=== PATIENT | female | born 1935 | race Caucasian/White ===

== ENCOUNTER → 2017-08-10 | Outpatient (CLI) | payer MEDICARE ==
[~2017-08-10] MED LIST: ACET-2303 PO; ALB0.5V; ALBU8.5H2 IH; ALPR0.25 PO; ASP325TEC PO; ASP81CT; ASP81TEC PO; BUDE6HFA IH; BUDE6HFA INH; CETI10TA76 PO; CLC500CT PO; CLPD75T PO; HYDR-700 PO; ISM30TCR PO; METO-272 PO; METO50TA7 PO; MONT10TA21 PO; MTP25TSR; NF-CRES10T PO; NTR.4SL SL; OMG1KC PO; PNT40TEC PO; PRAV40TA PO; RANI150T66 PO; RANO500T2 PO; RANO500T3 PO; ROSU10TA12 PO; RT-ALBUINH IH; TIOT18CA IH; TIOT4MIS2 INH
--- NOTE | 2017-08-11 18:32 | Diagnostic Imaging Report ---
Bilateral screening mammogram 2D views with tomosynthesis. The current study was also evaluated with a Computer Aided Detection (CAD) system. INDICATION: Screening. No current complaints stated on the questionnaire. COMPARISON: 08/04/16. FINDINGS: The breasts are composed of scattered fibroglandular densities. There is an intramammary lymph node in the outer aspect of the right breast. Scattered benign-appearing calcification seen. Allowing for technique and positional differences, no suspicious change is seen. IMPRESSION: No significant change. ACR BI-RADS Category 2: Benign findings. Result letter will be mailed to the patient. Note: At least 10% of breast cancer is not imaged by mammography. Dictated by: Dictated on workstation # [id number]
== END ==
LOC: RAD 08:39
PROVIDERS: ATTEND Internal Medicine
DX: Z12.31 Encounter for screening mammogram for malignant neoplasm of breast (principal)
CPT/HCPCS: 77067

== ENCOUNTER → 2019-01-12 | Outpatient (CLI) | payer MEDICARE ==
--- NOTE | 2019-01-12 18:17 | Diagnostic Imaging Report ---
PROCEDURE: CT head with and without contrast. TECHNIQUE: Multiple contiguous axial images were obtained through the brain before and after the administration of intravenous contrast. Auto Exposure Controls were utilized during the CT exam to meet ALARA standards for radiation dose reduction. INDICATION: Fell in November. Dizziness and loss of balance. FINDINGS: There is diffuse cortical atrophy with considerable periventricular white matter change. The lateral ventricles and third ventricle are slightly prominent. The basal cisterns are clear. There is no evidence of intracranial hemorrhage or mass effect. Following IV contrast injection there is normal enhancement of the intracranial vessels without evidence of enhancing masses. No evidence of aneurysm. Pituitary is not enlarged. Mastoid air cells are clear. Paranasal sinuses are clear, where visualized. No evidence of calvarial lesion. IMPRESSION: 1. Marked cortical atrophy and white matter changes consistent with chronic small vessel disease. 2. Could not exclude mild normal pressure hydrocephalus with patient's symptoms. Dictated by: Dictated on workstation # [id number]
== END ==
LOC: RAD 15:51
PROVIDERS: ATTEND Nurse Practitioner
DX: G31.9 Degenerative disease of nervous system, unspecified (principal); R90.82 White matter disease, unspecified; I67.89 Other cerebrovascular disease; W19.XXXA Unspecified fall, initial encounter; W22.09XA Striking against other stationary object, initial encounter; Y92.009 Unspecified place in unspecified non-institutional (private) residence as the place of occurrence of the external cause
CPT/HCPCS: 70470

== ENCOUNTER → 2019-02-22 | Outpatient (CLI) | payer MEDICARE ==
[~2019-02-22] VITALS: Ht 162.6 cm; Wt 59.0 kg
[~2019-02-22] MED LIST changes: +CATHETER FLUSH 10 ML SYR IV PRN; +REGADENOSON 0.4 MG/5 ML SYR (LEXISCAN) IV ONE
[2019-02-22 09:23] VITALS: BP 151/77
--- NOTE | 2019-02-22 18:20 | STRESS TEST ---
DATE OF SERVICE: 02/22/2019 LEXISCAN MYOVIEW STRESS TEST REPORT REFERRING PHYSICIAN: Dr. Álvarez. Baseline heart rate is 77. Baseline blood pressure is 159/79. Baseline EKG is sinus rhythm with left bundle branch block. In summary, the patient was injected with 10.24 mCi of technetium-99 Myoview and the resting images were obtained. Then, the patient received 0.4 mg of Lexiscan followed by 28.9 mCi of technetium-99 Myoview. Throughout the test, there were no EKG changes. The resting and stress images were reviewed and compared in the short axis, horizontal long axis, and vertical long axis views. Review of the images showed extracardiac attenuation affecting the quality of the images. There is no significant ischemia or infarction was noted. On the gated images, the left ventricle is small in size with hypercontractility. Calculated ejection fraction is 86%. Stress score is not accurate on the study. CONCLUSION: 1. The patient tolerated Lexiscan well. 2. Extracardiac attenuation with no significant ischemia or infarction on SPECT images. 3. Small left ventricular size with hypercontractility. Calculated ejection fraction is 86%. Job ID: [id number] DocumentID: [id number] Dictated Date: 02/22/2019 15:47:14 Prep Manager Date: 02/22/2019 18:19:36 Dictated By: HECTOR WALKER MD
== END ==
LOC: CARD 07:18
PROVIDERS: ATTEND Physician Assistant
DX: I25.10 Atherosclerotic heart disease of native coronary artery without angina pectoris (principal); R07.9 Chest pain, unspecified; J44.9 Chronic obstructive pulmonary disease, unspecified; E78.5 Hyperlipidemia, unspecified; I10 Essential (primary) hypertension; I44.7 Left bundle-branch block, unspecified
CPT/HCPCS: 78452; 93017

== ENCOUNTER 2019-03-13 09:27 | Emergency (ER) | payer MEDICARE ==
[~2019-03-13] VITALS: Ht 162.6 cm; Wt 56.7 kg
[~2019-03-13 09:27] MED LIST changes: -CATHETER FLUSH 10 ML SYR IV PRN; -REGADENOSON 0.4 MG/5 ML SYR (LEXISCAN) IV ONE
[2019-03-13] MEDS ORDERED: NS IV 1000 ML 1,000 ML IV ONE (10:02)
[2019-03-13 10:22] LABS: BASOPHILS % (AUTO) 0 % (0-10); EOSINOPHILS % (AUTO) 0 % (0-10); HEMATOCRIT 33 % (35-52); HEMOGLOBIN 11.4 G/DL (11.5-16.0); LYMPHOCYTES # (AUTO) 1.2 X 10^3 (1.0-4.0); LYMPHOCYTES % (AUTO) 17 % (12-44); MEAN CORPUSCULAR HEMOGLOBIN 30 PG (25-34); MEAN CORPUSCULAR HGB CONC 34 G/DL (32-36); MEAN CORPUSCULAR VOLUME 87 FL (80-99); MEAN PLATELET VOLUME 8.7 FL (7.4-10.4); MONOCYTES # (AUTO) 0.9 X 10^3 (0.0-1.0); MONOCYTES % (AUTO) 14 % (0-12); NEUTROPHILS # (AUTO) 4.8 X 10^3 (1.8-7.8); NEUTROPHILS % (AUTO) 69 % (42-75); PLATELET COUNT 337 10^3/uL (130-400); RED CELL DISTRIBUTION WIDTH 13.8 % (10.0-14.5); WHITE BLOOD COUNT 6.9 10^3/uL (4.3-11.0)
[2019-03-13] MEDS ORDERED: LOSA50TA63 PO (10:23)
[2019-03-13] MEDS ORDERED: LEVO750T9 PO (10:23)
[2019-03-13] MEDS ORDERED: SERT100T8 PO (10:23)
[2019-03-13 10:47] LABS: ALBUMIN 3.7 GM/DL (3.2-4.5); BILIRUBIN,TOTAL 0.6 MG/DL (0.1-1.0); CALCIUM 9.1 MG/DL (8.5-10.1); CREATININE SERUM 1.05 MG/DL (0.60-1.30); MAGNESIUM 1.8 MG/DL (1.8-2.4); POTASSIUM 4.1 MMOL/L (3.6-5.0)
[2019-03-13 11:06] LABS: TSH (THYROID ANALYZER) 0.24 UIU/ML (0.35-4.94)
[2019-03-13 11:25] LABS: BILIRUBIN,URINE NEGATIVE (NEGATIVE); CLARITY,URINE CLEAR; COLOR,URINE YELLOW; GLUCOSE, URINE (UA) NEGATIVE (NEGATIVE); KETONES,URINE NEGATIVE (NEGATIVE); LEUKOCYTE ESTERASE ,URINE 1+ (NEGATIVE); NITRITE,URINE NEGATIVE (NEGATIVE); PH,URINE 7 (5-9); PROTEIN,URINE NEGATIVE (NEGATIVE); UROBILINOGEN,URINE NORMAL (NORMAL)
[2019-03-13 11:35] LABS: BACTERIA,URINE FEW /HPF; RBC,URINE RARE /HPF
[2019-03-13 11:45] LABS: FREE T4 (FREE THYROXINE) 1.33 NG/DL (0.70-1.48)
--- NOTE | 2019-03-13 12:45 | ED General ---
General Chief Complaint: Nasal Problems Stated Complaint: SINUS INFECTION Nursing Triage Note: pt complaint of sinus infection for the last month with worsening in the last 3 days. co dull headache Nursing Sepsis Screen: No Definite Risk Allergies and Home Medications Allergies Coded Allergies: Penicillins (Unverified Allergy, Intermediate, RASH, 07/29/06) clopidogrel (Verified Allergy, Mild, ITCHING, 04/03/15) Home Medications Acetaminophen 500 Mg Tab, 1,000 MG PO Q6H PRN for PAIN, (Reported) Albuterol Sulfate 8.5 Gm Aer.w.adap, 2 PUFF IH Q4H PRN for SHORTNESS OF BREATH, (Reported) Alprazolam 0.25 Mg Tablet, 0.25 MG PO Q8H PRN for ANXIETY, (Reported) Aspirin 325 Mg Tabec, 325 MG PO DAILY, (Reported) Budesonide/Formoterol Fumarate 1 Inhaler Aero, 2 PUFF INH BID PRN for SHORTNESS OF BREATH, (Reported) Cetirizine HCl 10 Mg Tab.chew, 10 MG PO DAILY, (Reported) Levofloxacin 750 Mg Tablet, 750 MG PO DAILY, (Reported) Losartan Potassium 50 Mg Tablet, 50 MG PO DAILY, (Reported) Metoprolol Succinate 50 Mg Tab.sr.24h, 50 MG PO DAILY, (Reported) Montelukast Sodium 10 Mg Tablet, 10 MG PO HS, (Reported) Nitroglycerin 0.4 Mg Subl, 0.4 MG SL UD PRN for CHEST PAIN, (Reported) [place] 3 Polyunsat Fatty Acids 1,000 Mg Cap, 3,000 MG PO DAILY, (Reported) Pantoprazole Sod 40 Mg Tab, 40 MG PO DAILY, (Reported) Ranolazine 500 Mg Tab.sr.12h, 500 MG PO BID, (Reported) Rosuvastatin Calcium 10 Mg Tab, 10 MG PO HS, (Reported) Sertraline HCl 100 Mg Tablet, 100 MG PO DAILY, (Reported) Tiotropium [place] 4 Gm Mist.inhal, 1 CAP INH DAILY PRN for SHORTNESS OF BREATH, (Reported) Past Ulsokal-Ojhogz-Galjrv Hx Patient Social History Alcohol Use: Occasionally Uses Recreational Drug Use: No Smoking Status: Never a Smoker Recent Foreign Travel: No Contact w/Someone Who Travel: No Recent Infectious Disease Expo: No Recent Hopitalizations: Yes Immunizations Up To Date Tetanus Booster (TDap): More than 5yrs PED Vaccines UTD: Yes Date of Pneumonia Vaccine: Jun 07, 2013 Date of Influenza Vaccine: May 20, 2015 Past Medical History Surgeries: Yes (STENT X1, HEMMROIDECTOMY, PARATHYROID, carpal tunnel ) Respiratory: Yes (COPD) Asthma, COPD Currently Using CPAP: No Currently Using BIPAP: No Cardiac: Yes (STENT - 2009) Coronary Artery Disease, High Cholesterol, Hypertension Neurological: No : No Reproductive Disorders: No Sexually Transmitted Disease: No HIV/AIDS: No Genitourinary: No Gastrointestinal: Yes Gastroesophageal Reflux, Hemorrhoids, Polyps, Gall Bladder Disease, Irritable Bowel Musculoskeletal: Yes Arthritis Endocrine: No Cataract Loss of Vision: Denies Hearing Impairment: Denies Cancer: No Psychosocial: Yes Anxiety Integumentary: Yes (EXTREMELY DRY SKIN ) Blood Disorders: No Adverse Reaction/Blood Tranf: No (NEVER HAD BLOOD TRANSFUSION ) Family Medical History Colon cancer 19 MOTHER FH: emphysema 19 FATHER FH: lung cancer G8 BROTHER Prostate cancer G8 BROTHER Physical Exam Vital Signs Vital Signs - First Documented 03/13/19 09:44 Temp 97.4 Pulse 77 Resp 14 B/P (MAP) 130/76 (94) Pulse Ox 100 O2 Delivery Room Air Capillary Refill : Less Than 3 Seconds Height, Weight, BMI Height: 5'4.00" Weight: 125lbs. 0.0oz. 56.394175op; 22.3 BMI Method:Stated Progress/Results/Core Measures Suspected Sepsis Recent Fever Within 48 Hours: No Infection Criteria Present: Suspected New Infection New/Unexplained Altered Menta: No Sepsis Screen: No Definite Risk SIRS Temperature:97.4 Pulse: 77 Respiratory Rate: 14 Laboratory Tests 03/13/19 10:15: White Blood Count 6.9 Blood Pressure 130 /76 Mean: 94 Laboratory Tests 03/13/19 10:15: Creatinine 1.05, Platelet Count 337, Total Bilirubin 0.6 Results/Orders Lab Results Laboratory Tests Test 03/13/19 10:15 03/13/19 11:09 Range/Units White Blood Count 6.9 4.3-11.0 10^3/uL Red Blood Count 3.82 L 4.35-5.85 10^6/uL Hemoglobin 11.4 L 11.5-16.0 G/DL Hematocrit 33 L 35-52 % Mean Corpuscular Volume 87 80-99 FL Mean Corpuscular Hemoglobin 30 25-34 PG Mean Corpuscular Hemoglobin Concent 34 32-36 G/DL Red Cell Distribution Width 13.8 10.0-14.5 % Platelet Count 337 130-400 10^3/uL Mean Platelet Volume 8.7 7.4-10.4 FL Neutrophils (%) (Auto) 69 42-75 % Lymphocytes (%) (Auto) 17 12-44 % Monocytes (%) (Auto) 14 H 0-12 % Eosinophils (%) (Auto) 0 0-10 % Basophils (%) (Auto) 0 0-10 % Neutrophils # (Auto) 4.8 1.8-7.8 X 10^3 Lymphocytes # (Auto) 1.2 1.0-4.0 X 10^3 Monocytes # (Auto) 0.9 0.0-1.0 X 10^3 Eosinophils # (Auto) 0.0 0.0-0.3 10^3/uL Basophils # (Auto) 0.0 0.0-0.1 10^3/uL Sodium Level 133 L 135-145 MMOL/L Potassium Level 4.1 3.6-5.0 MMOL/L Chloride Level 103 98-107 MMOL/L Carbon Dioxide Level 23 21-32 MMOL/L Anion Gap 7 5-14 MMOL/L Blood Urea Nitrogen 18 7-18 MG/DL Creatinine 1.05 0.60-1.30 MG/DL Estimat Glomerular Filtration Rate 50 BUN/Creatinine Ratio 17 Glucose Level 110 H 70-105 MG/DL Calcium Level 9.1 8.5-10.1 MG/DL Corrected Calcium 9.3 8.5-10.1 MG/DL Magnesium Level 1.8 1.8-2.4 MG/DL Total Bilirubin 0.6 0.1-1.0 MG/DL Aspartate Amino Transf (AST/SGOT) 13 5-34 U/L Alanine Aminotransferase (ALT/SGPT) 11 0-55 U/L Alkaline Phosphatase 42 40-136 U/L C-Reactive Protein High Sensitivity 0.07 0.00-0.50 MG/DL Total Protein 6.0 L 6.4-8.2 GM/DL Albumin 3.7 3.2-4.5 GM/DL Free Thyroxine 1.33 0.70-1.48 NG/DL TSH Gem Testing 0.24 L 0.35-4.94 UIU/ML Urine Color YELLOW Urine Clarity CLEAR Urine pH 7 5-9 Urine Specific [place] 1.010 L 1.016-1.022 Urine Protein NEGATIVE NEGATIVE Urine Glucose (UA) NEGATIVE NEGATIVE Urine Ketones NEGATIVE NEGATIVE Urine Nitrite NEGATIVE NEGATIVE Urine Bilirubin NEGATIVE NEGATIVE Urine Urobilinogen NORMAL NORMAL MG/DL Urine Leukocyte Esterase 1+ H NEGATIVE Urine RBC (Auto) NEGATIVE NEGATIVE Urine RBC RARE /HPF Urine WBC 2-5 /HPF Urine Squamous Epithelial Cells 2-5 /HPF Urine Crystals NONE /LPF Urine Bacteria FEW H /HPF Urine Casts NONE /LPF Urine Mucus NEGATIVE /LPF Urine Culture Indicated YES My Orders Orders - VINH MULLIGAN MD Cbc With Automated Diff (03/13/19 10:02) Comprehensive Metabolic Panel (03/13/19 10:02) Hs C Reactive Protein (03/13/19 10:02) Magnesium (03/13/19 10:02) Thyroid Analyzer (03/13/19 10:02) Ua Culture If Indicated (03/13/19 10:02) Ed Iv/Invasive Line Start (03/13/19 10:02) Ns Iv 1000 Ml (Sodium Chloride 0.9%) (03/13/19 10:02) Free T4 (Free Thyroxine) (03/13/19 10:15) Urine Culture (03/13/19 11:09) Vital Signs/I&O 03/13/19 09:44 Temp 97.4 Pulse 77 Resp 14 B/P (MAP) 130/76 (94) Pulse Ox 100 O2 Delivery Room Air Capillary Refill : Less Than 3 Seconds Blood Pressure Mean: 94 Departure Impression Primary Impression: Generalized weakness Additional Impressions: Sinus congestion Hypovolemia Disposition: 01 HOME, SELF-CARE Condition: Improved Departure-Patient Inst. Decision time for Depature: 12:40 Referrals: CARISSA ÁLVAREZ MD (PCP/Family) Primary Care Physician Patient Instructions: Sinusitis, Adult (DC) Add. Discharge Instructions: Drink plenty of clear liquids. Keep your follow-up appointment with Dr. Álvarez. Review your labs and urine culture results with Dr. Álvarez at that appointment. Return to the emergency room if you have worsening symptoms in the meantime. Please review your medications with Dr. Álvarez. Your symptoms may be in part due to side effects from some of your medications. In the meantime, continue with your antibiotic as prescribed. All discharge instructions reviewed with patient and/or family. Voiced understanding. VINH MULLIGAN MD Mar 13, 2019 12:45
[2019-03-13 12:50] VITALS: BP 125/63
== END 2019-03-13 12:50 | disposition home or self-care (01) ==
LOC: EDUNIT# 09:27 → ER 09:28
DX: R09.81 Nasal congestion (principal); E86.1 Hypovolemia; R53.1 Weakness; J44.9 Chronic obstructive pulmonary disease, unspecified; I10 Essential (primary) hypertension; E78.00 Pure hypercholesterolemia, unspecified; I25.10 Atherosclerotic heart disease of native coronary artery without angina pectoris; K21.9 Gastro-esophageal reflux disease without esophagitis; K58.9 Irritable bowel syndrome, unspecified; F41.9 Anxiety disorder, unspecified; Z80.0 Family history of malignant neoplasm of digestive organs; Z80.1 Family history of malignant neoplasm of trachea, bronchus and lung; Z80.42 Family history of malignant neoplasm of prostate; Z86.011 Personal history of benign neoplasm of the brain; Z88.0 Allergy status to penicillin; Z88.8 Allergy status to other drugs, medicaments and biological substances; Z79.82 Long term (current) use of aspirin
CPT/HCPCS: 36415; 80053; 81000; 83735; 84439; 84443; 85025; 86141; 87088

== ENCOUNTER → 2019-03-15 | Outpatient (CLI) | payer MEDICARE ==
[~2019-03-15] MED LIST changes: +LEVO750T9 PO; +LOSA50TA63 PO; +SERT100T8 PO
--- NOTE | 2019-03-15 09:51 | Diagnostic Imaging Report ---
INDICATION: Cough and shortness of breath PA and lateral chest Heart size and pulmonary vascularity are normal. Lungs are clear. There are no effusions or pneumothoraces. IMPRESSION: Negative chest. Dictated by: Dictated on workstation # [id number]
== END ==
LOC: RAD 09:18
PROVIDERS: ATTEND Internal Medicine
DX: R06.02 Shortness of breath (principal); R05 Cough
CPT/HCPCS: 71046

== ENCOUNTER 2019-06-09 19:06 | Emergency (ER) | payer MEDICARE ==
[~2019-06-09] VITALS: Ht 162 cm; Wt 55.0 kg
[2019-06-09] MEDS ORDERED: ACETAMINOPHEN 325 MG TABLET PO ONE (20:15)
--- NOTE | 2019-06-09 20:22 | ED Back Pain ---
General Chief Complaint: Back Problems Stated Complaint: FALL,BACK PAIN Nursing Triage Note: PT TO ROOM 08 VIA W/C WITH C/O BACK PAIN AFTER A FALL. PT STATES SHE FELL AND HIT HER HIP ON THE [facility] AND HER HEAD ON THE WALL. PT STATES NO LOSS OF CONSCIOUSNESS. Nursing Sepsis Screen: No Definite Risk Source of Information: Patient Exam Limitations: No Limitations History of Present Illness Date Seen by Provider: Jun 09, 2019 Time Seen by Provider: 20:18 Initial Comments To ER with reports of a fall at home, she got lightheaded and fell, this has happened quite a bit pelvis is, she is not alarmed by the lightheadedness. She feels back to normal now, she does have some complaints of pain to the right side of the lumbar spine she did hit her head. No loss of consciousness no neck pain. Location: C-Spine, Lumbar Spine Timing/Duration: 4-6 Hours Severity: Moderate Pain/Injury Location: None Method of Injury: Unknown Associated Symptoms: lower back pain Allergies and Home Medications Allergies Coded Allergies: Penicillins (Unverified Allergy, Intermediate, RASH, 07/29/06) clopidogrel (Verified Allergy, Mild, ITCHING, 04/03/15) Home Medications Acetaminophen 500 Mg Tab, 1,000 MG PO Q6H PRN for PAIN, (Reported) Albuterol Sulfate 8.5 Gm Aer.w.adap, 2 PUFF IH Q4H PRN for SHORTNESS OF BREATH, (Reported) Alprazolam 0.25 Mg Tablet, 0.25 MG PO Q8H PRN for ANXIETY, (Reported) Aspirin 325 Mg Tabec, 325 MG PO DAILY, (Reported) Budesonide/Formoterol Fumarate 1 Inhaler Aero, 2 PUFF INH BID PRN for SHORTNESS OF BREATH, (Reported) Cetirizine HCl 10 Mg Tab.chew, 10 MG PO DAILY, (Reported) Levofloxacin 750 Mg Tablet, 750 MG PO DAILY, (Reported) Losartan Potassium 50 Mg Tablet, 50 MG PO DAILY, (Reported) Metoprolol Succinate 50 Mg Tab.sr.24h, 50 MG PO DAILY, (Reported) Montelukast Sodium 10 Mg Tablet, 10 MG PO HS, (Reported) Nitroglycerin 0.4 Mg Subl, 0.4 MG SL UD PRN for CHEST PAIN, (Reported) [place] 3 Polyunsat Fatty Acids 1,000 Mg Cap, 3,000 MG PO DAILY, (Reported) Pantoprazole Sod 40 Mg Tab, 40 MG PO DAILY, (Reported) Ranolazine 500 Mg Tab.sr.12h, 500 MG PO BID, (Reported) Rosuvastatin Calcium 10 Mg Tab, 10 MG PO HS, (Reported) Sertraline HCl 100 Mg Tablet, 100 MG PO DAILY, (Reported) Tiotropium [place] 4 Gm Mist.inhal, 1 CAP INH DAILY PRN for SHORTNESS OF BREATH, (Reported) Patient Home Medication List Home Medication List Reviewed: Yes Review of Systems Constitutional: see HPI EENTM: see HPI Respiratory: no symptoms reported Genitourinary: no symptoms reported Musculoskeletal: see HPI, back pain Skin: no symptoms reported Psychiatric/Neurological: No Symptoms Reported Past Dvlcmmr-Miemjv-Zwggjj Hx Patient Social History Alcohol Use: Regular Use Alcohol Beverage of Choice: Wine Recreational Drug Use: No Smoking Status: Never a Smoker 2nd Hand Smoke Exposure: No Recent Foreign Travel: No Contact w/Someone Who Travel: No Recent Infectious Disease Expo: No Recent Hopitalizations: Yes Physical Abuse: No Sexual Abuse: No Mistreated: No Fear: No Immunizations Up To Date Tetanus Booster (TDap): More than 5yrs PED Vaccines UTD: Yes Date of Pneumonia Vaccine: Jun 07, 2013 Date of Influenza Vaccine: May 20, 2015 Past Medical History Surgeries: Yes (STENT X1, HEMMROIDECTOMY, PARATHYROID, carpal tunnel ) Coronary Stent, Orthopedic Respiratory: Yes (COPD) Asthma, COPD Currently Using CPAP: No Currently Using BIPAP: No Cardiac: Yes (STENT - 2009) Coronary Artery Disease, High Cholesterol, Hypertension Neurological: No Reproductive Disorders: No Sexually Transmitted Disease: No HIV/AIDS: No Genitourinary: No Gastrointestinal: Yes Gastroesophageal Reflux, Hemorrhoids, Polyps, Gall Bladder Disease, Irritable Bowel Musculoskeletal: Yes Arthritis Endocrine: No Cataract Loss of Vision: Denies Hearing Impairment: Denies Cancer: No Psychosocial: Yes Anxiety Integumentary: Yes (EXTREMELY DRY SKIN ) Blood Disorders: No Adverse Reaction/Blood Tranf: No (NEVER HAD BLOOD TRANSFUSION ) Family Medical History Colon cancer 19 MOTHER FH: emphysema 19 FATHER FH: lung cancer G8 BROTHER Prostate cancer G8 BROTHER Physical Exam Vital Signs Vital Signs - First Documented 06/09/19 19:18 Temp 37.6 Pulse 99 Resp 17 B/P (MAP) 182/93 (122) Pulse Ox 96 O2 Delivery Room Air Capillary Refill : Less Than 3 Seconds Height, Weight, BMI Height: 5'4.00" Weight: 125lbs. 0.0oz. 56.193381sx; 20.00 BMI Method:Stated General Appearance: No Apparent Distress, WD/WN HEENT: PERRL/EOMI, TMs Normal Neck: Full Range of Motion, Normal Inspection Respiratory: No Accessory Muscle Use, No Respiratory Distress Gastrointestinal: Normal Bowel Sounds, Non Tender, Soft Back: Normal Inspection, Other (tenderness to palpation right side of the lumbar spine) Neurologic/Psychiatric: Alert, Oriented x3 Progress/Results/Core Measures Results/Orders My Orders Orders - CEDRICK BLANC APRN Ct Head/Cervical Spine Wo (06/09/19 20:06) Ct Lumbar Spine Wo (06/09/19 20:06) Acetaminophen Tablet/Caplet (Tylenol T (06/09/19 20:15) Rx-Hydrocodone/Apap 5-325 Mg (Rx-Vicodin (06/09/19 21:00) Medications Given in ED Current Medications Medications Dose Ordered Sig/Kendra Route Start Time Stop Time Status Last Admin Dose Admin Acetaminophen 650 mg ONCE ONCE PO 06/09/19 20:15 06/09/19 20:16 DC 06/09/19 20:11 650 MG Vital Signs/I&O 06/09/19 19:18 Temp 37.6 Pulse 99 Resp 17 B/P (MAP) 182/93 (122) Pulse Ox 96 O2 Delivery Room Air Blood Pressure Mean: 122 Departure Impression Primary Impression: Lumbar transverse process fracture Qualified Codes: S32.009A - Unspecified fracture of unspecified lumbar vertebra, initial encounter for closed fracture Disposition: 01 HOME, SELF-CARE Condition: Stable Departure-Patient Inst. Decision time for Depature: 20:59 Referrals: CARISSA BROWNE MD (PCP/Family) Primary Care Physician Patient Instructions: Low Back Pain (DC) Add. Discharge Instructions: 1. Return to ER for any concerns 2. Pain medication as directed 3. Follow-up with your doctor next week 4. The pain medication can be constipating septic a stool softener such as Colace daily if you do not do so already. All discharge instructions reviewed with patient and/or family. Voiced understanding. Scripts Hydrocodone/Acetaminophen ([place] 5-325 Tablet) 1 Each Tablet 1 TAB PO Q6H for Pain MDD 10 TABS for 7 Days, #14 TAB Prov: CEDRICK BLANC APRN 06/09/19 CEDRICK BLANC APRN Jun 09, 2019 20:22
--- NOTE | 2019-06-09 20:45 | Diagnostic Imaging Report ---
PROCEDURE: CT head and CT cervical spine without contrast. TECHNIQUE: Multiple contiguous axial images were obtained through the brain and cervical spine without the use of intravenous contrast. Sagittal and coronal reformations through the cervical spine were then performed. Auto Exposure Controls were utilized during the CT exam to meet ALARA standards for radiation dose reduction. INDICATION: Fall with trauma to head. COMPARISON: CT head from 01/12/2019. FINDINGS: CT head: No hyperdense hemorrhage or space-occupying mass. No hydrocephalus or midline shift. Head-white matter differentiation is well preserved. Global atrophy with periventricular white-matter hypoattenuation is unchanged and due to chronic microvascular ischemic disease. 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 No skull fracture. Paranasal sinuses and mastoid air cells are clear. CT cervical spine: No acute fracture or traumatic malalignment in the cervical spine. No acute fracture in the temporal bones. No high-grade spinal stenosis. Multilevel degenerative disc disease and facet osteoarthritis. Lung apices are clear. No cervical lymphadenopathy. IMPRESSION: 1. No acute intracranial hemorrhage or skull fracture. 2. No acute fracture or traumatic malalignment in the cervical spine. Dictated by: Dictated on workstation # [id number]
--- NOTE | 2019-06-09 20:51 | Diagnostic Imaging Report ---
PROCEDURE: CT lumbar spine without contrast. TECHNIQUE: Multiple contiguous axial images were obtained through the lumbar spine without the use of intravenous contrast. Sagittal and coronal reformations were then performed. Auto Exposure Controls were utilized during the CT exam to meet ALARA standards for radiation dose reduction. INDICATION: Back pain after fall. COMPARISON: CT abdomen and pelvis from 12/13/2007. FINDINGS: Compression in the inferior endplate of L1 has appearance of a chronic Schmorl's node. No definitive acute compression or burst fracture within the lumbar spine. There are acute fractures involving the right L2 and L3 transverse processes. Multilevel degenerative changes include degenerative retrolisthesis at L3 on L4. There is approximately 3 mm of anterolisthesis of L5 on S1 due to chronic bilateral pars defects. No fracture within the visualized portions of the sacrum. IMPRESSION: 1. Acute minimally displaced fractures of the right L2 and L3 transverse processes. 2. Chronic-appearing Schmorl's node involving the inferior endplate of L1. No definitive compression or burst fracture in the lumbar spine. If it will alter the patient's management, consider nonemergent lumbar spine MRI to assess for bone marrow edema. Dictated by: Dictated on workstation # [id number]
[2019-06-09] MEDS ORDERED: RX-HYDROCODONE/APAP 5/325 MG #4 TAB PK PO PRN (21:00)
[2019-06-09] MEDS ORDERED: HYDR-4226 PO (21:05)
[2019-06-09 21:29] VITALS: BP 119/72
== END 2019-06-09 21:28 | disposition home or self-care (01) ==
LOC: EDUNIT# 19:06 → ER 19:07
DX: S32.029A Unspecified fracture of second lumbar vertebra, initial encounter for closed fracture (principal); S32.039A Unspecified fracture of third lumbar vertebra, initial encounter for closed fracture; J44.9 Chronic obstructive pulmonary disease, unspecified; I10 Essential (primary) hypertension; E78.00 Pure hypercholesterolemia, unspecified; I25.10 Atherosclerotic heart disease of native coronary artery without angina pectoris; F41.9 Anxiety disorder, unspecified; K21.9 Gastro-esophageal reflux disease without esophagitis; K58.9 Irritable bowel syndrome, unspecified; Z95.5 Presence of coronary angioplasty implant and graft; Z88.0 Allergy status to penicillin; Z79.82 Long term (current) use of aspirin; Z80.0 Family history of malignant neoplasm of digestive organs; Z80.1 Family history of malignant neoplasm of trachea, bronchus and lung; Z80.42 Family history of malignant neoplasm of prostate; W19.XXXA Unspecified fall, initial encounter; Y92.009 Unspecified place in unspecified non-institutional (private) residence as the place of occurrence of the external cause
CPT/HCPCS: 70450; 72125; 72131

== ENCOUNTER 2019-07-11 13:36 | Emergency (ER) | payer MEDICARE ==
[~2019-07-11] VITALS: Ht 162.5 cm; Wt 56.3 kg
[~2019-07-11 13:36] MED LIST changes: +HYDR-4226 PO
[2019-07-11] MEDS ORDERED: NS IV 500 ML 500 ML IV ONE (14:21)
--- NOTE | 2019-07-11 14:34 | ED General ---
General Chief Complaint: General Problems/Pain Stated Complaint: BILAT LEG WEAKNESS Nursing Triage Note: over the past week has had increasing difficulty walking, getting up and down, hx of fall 1 month ago with tail bone fracture Nursing Sepsis Screen: No Definite Risk Source of Information: Patient Exam Limitations: No Limitations History of Present Illness Date Seen by Provider: Jul 11, 2019 Time Seen by Provider: 14:15 Initial Comments Here with reported generalized weakness and increasing difficulty with getting up and down and walking. She did have a fall one month ago and fractured her coccyx. She takes the hydrocodone daily on most days but not more than one typically. She does supplement with ibuprofen a few times a day as well. She's had episodes of generalized weakness in the past but this one appears to be worse. She is suffering from some sciatica associated with the injury and that has caused her to be more sedentary. Denies dysuria or diarrhea. Denies nausea, vomiting or diarrhea. No recent fever or chills or illness. Timing/Duration: 1 Week, Getting Worse Severity: Moderate Modifying Factors: improves with Rest Associated Systoms: No Fever/Chills; Weakness Allergies and Home Medications Allergies Coded Allergies: Penicillins (Unverified Allergy, Intermediate, RASH, 07/29/06) clopidogrel (Verified Allergy, Mild, ITCHING, 04/03/15) Home Medications Acetaminophen 500 Mg Tab, 1,000 MG PO Q6H PRN for PAIN, (Reported) Albuterol Sulfate 8.5 Gm Aer.w.adap, 2 PUFF IH Q4H PRN for SHORTNESS OF BREATH, (Reported) Alprazolam 0.25 Mg Tablet, 0.25 MG PO Q8H PRN for ANXIETY, (Reported) Aspirin 325 Mg Tabec, 325 MG PO DAILY, (Reported) Budesonide/Formoterol Fumarate 1 Inhaler Aero, 2 PUFF INH BID PRN for SHORTNESS OF BREATH, (Reported) Cetirizine HCl 10 Mg Tab.chew, 10 MG PO DAILY, (Reported) Hydrocodone/Acetaminophen 1 Each Tablet, 1 TAB PO Q6H Prescribed by: CEDRICK BLANC on 06/09/192104 Levofloxacin 750 Mg Tablet, 750 MG PO DAILY, (Reported) Losartan Potassium 50 Mg Tablet, 50 MG PO DAILY, (Reported) Metoprolol Succinate 50 Mg Tab.sr.24h, 50 MG PO DAILY, (Reported) Montelukast Sodium 10 Mg Tablet, 10 MG PO HS, (Reported) Nitroglycerin 0.4 Mg Subl, 0.4 MG SL UD PRN for CHEST PAIN, (Reported) Guffey 3 Polyunsat Fatty Acids 1,000 Mg Cap, 3,000 MG PO DAILY, (Reported) Pantoprazole Sod 40 Mg Tab, 40 MG PO DAILY, (Reported) Ranolazine 500 Mg Tab.sr.12h, 500 MG PO BID, (Reported) Rosuvastatin Calcium 10 Mg Tab, 10 MG PO HS, (Reported) Sertraline HCl 100 Mg Tablet, 100 MG PO DAILY, (Reported) Tiotropium [place] 4 Gm Mist.inhal, 1 CAP INH DAILY PRN for SHORTNESS OF BREATH, (Reported) Patient Home Medication List Home Medication List Reviewed: Yes Review of Systems Review of Systems Constitutional: see HPI; No fever; malaise, weakness EENTM: no symptoms reported Respiratory: no symptoms reported Cardiovascular: no symptoms reported Gastrointestinal: No nausea, No vomiting Genitourinary: No dysuria, No frequency Musculoskeletal: see HPI, joint pain, muscle weakness; No neck pain Skin: no symptoms reported All Other Systems Reviewed Negative Unless Noted: Yes Past Xjfuipx-Guczqy-Clrpwm Hx Past Med/Social Hx: Reviewed Nursing Past Med/Soc Hx Patient Social History Alcohol Use: Regular Use Number of Drinks Today: HH Alcohol Beverage of Choice: Wine Recreational Drug Use: No 2nd Hand Smoke Exposure: No Recent Foreign Travel: No Contact w/Someone Who Travel: No Recent Infectious Disease Expo: No Recent Hopitalizations: Yes Immunizations Up To Date Tetanus Booster (TDap): More than 5yrs PED Vaccines UTD: Yes Date of Pneumonia Vaccine: Jun 07, 2013 Date of Influenza Vaccine: May 20, 2015 Past Medical History Surgeries: Yes (STENT X1, HEMMROIDECTOMY, PARATHYROID, carpal tunnel ) Coronary Stent, Orthopedic Respiratory: Yes (COPD) Asthma, COPD Currently Using CPAP: No Currently Using BIPAP: No Cardiac: Yes (STENT - 2010) Coronary Artery Disease, High Cholesterol, Hypertension Neurological: No Reproductive Disorders: No Sexually Transmitted Disease: No HIV/AIDS: No Genitourinary: No Gastrointestinal: Yes Gastroesophageal Reflux, Hemorrhoids, Polyps, Gall Bladder Disease, Irritable Bowel Musculoskeletal: Yes Arthritis Endocrine: No Cataract Loss of Vision: Denies Hearing Impairment: Denies Cancer: No Psychosocial: Yes Anxiety Integumentary: Yes (EXTREMELY DRY SKIN ) Blood Disorders: No Adverse Reaction/Blood Tranf: No (NEVER HAD BLOOD TRANSFUSION ) Family Medical History Reviewed Nursing Family Hx Colon cancer 19 MOTHER FH: emphysema 19 FATHER FH: lung cancer G8 BROTHER Prostate cancer G8 BROTHER Physical Exam Vital Signs Vital Signs - First Documented 07/11/19 13:48 Temp 36.5 Pulse 80 Resp 22 B/P (MAP) 173/95 (121) Capillary Refill : Less Than 3 Seconds Height, Weight, BMI Height: 5'4.00" Weight: 125lbs. 0.0oz. [id number]; 21.00 BMI Method:Stated General Appearance: No Apparent Distress, Thin HEENT: PERRL/EOMI, Pharynx Normal Neck: Non Tender, Supple Respiratory: Lungs Clear, Normal Breath Sounds Cardiovascular: Regular Rate, Rhythm, No Murmur Gastrointestinal: Non Tender, Soft Extremity: Normal Range of Motion, Non Tender Neurologic/Psychiatric: Alert, Oriented x3, No Motor/Sensory Deficits, Normal Mood/Affect, ethnographic materials conservator II-XII Norm as Tested Skin: Normal Color, Warm/Dry Progress/Results/Core Measures Suspected Sepsis Recent Fever Within 48 Hours: No Infection Criteria Present: None New/Unexplained Altered Menta: No Sepsis Screen: No Definite Risk SIRS Temperature: Pulse: 80 Respiratory Rate: 22 Laboratory Tests 07/11/19 14:28: White Blood Count 5.1 Blood Pressure 173 /95 Mean: 121 Laboratory Tests 07/11/19 14:28: Creatinine 0.95, Platelet Count 268, Total Bilirubin 0.3 Results/Orders Lab Results Laboratory Tests Test 07/11/19 14:28 07/11/19 14:35 Range/Units White Blood Count 5.1 4.3-11.0 10^3/uL Red Blood Count 3.65 L 4.35-5.85 10^6/uL Hemoglobin 11.0 L 11.5-16.0 G/DL Hematocrit 32 L 35-52 % Mean Corpuscular Volume 88 80-99 FL Mean Corpuscular Hemoglobin 30 25-34 PG Mean Corpuscular Hemoglobin Concent 34 32-36 G/DL Red Cell Distribution Width 12.6 10.0-14.5 % Platelet Count 268 130-400 10^3/uL Mean Platelet Volume 8.1 7.4-10.4 FL Neutrophils (%) (Auto) 61 42-75 % Lymphocytes (%) (Auto) 19 12-44 % Monocytes (%) (Auto) 14 H 0-12 % Eosinophils (%) (Auto) 5 0-10 % Basophils (%) (Auto) 1 0-10 % Neutrophils # (Auto) 3.1 1.8-7.8 X 10^3 Lymphocytes # (Auto) 1.0 1.0-4.0 X 10^3 Monocytes # (Auto) 0.7 0.0-1.0 X 10^3 Eosinophils # (Auto) 0.2 0.0-0.3 10^3/uL Basophils # (Auto) 0.1 0.0-0.1 10^3/uL Sodium Level 129 L 135-145 MMOL/L Potassium Level 4.0 3.6-5.0 MMOL/L Chloride Level 98 98-107 MMOL/L Carbon Dioxide Level 22 21-32 MMOL/L Anion Gap 9 5-14 MMOL/L Blood Urea Nitrogen 13 7-18 MG/DL Creatinine 0.95 0.60-1.30 MG/DL Estimat Glomerular Filtration Rate 56 BUN/Creatinine Ratio 14 Glucose Level 96 70-105 MG/DL Calcium Level 8.4 L 8.5-10.1 MG/DL Corrected Calcium 8.6 8.5-10.1 MG/DL Magnesium Level 1.7 1.6-2.4 MG/DL Total Bilirubin 0.3 0.1-1.0 MG/DL Aspartate Amino Transf (AST/SGOT) 16 5-34 U/L Alanine Aminotransferase (ALT/SGPT) 12 0-55 U/L Alkaline Phosphatase 38 L 40-136 U/L Troponin I < 0.028 <0.028 NG/ML C-Reactive Protein High Sensitivity 0.04 0.00-0.50 MG/DL Total Protein 5.9 L 6.4-8.2 GM/DL Albumin 3.7 3.2-4.5 GM/DL TSH [place] Testing 0.53 0.35-4.94 UIU/ML Urine Color YELLOW Urine Clarity CLEAR Urine pH 6 5-9 Urine Specific [place] 1.010 L 1.016-1.022 Urine Protein NEGATIVE NEGATIVE Urine Glucose (UA) NEGATIVE NEGATIVE Urine Ketones NEGATIVE NEGATIVE Urine Nitrite NEGATIVE NEGATIVE Urine Bilirubin NEGATIVE NEGATIVE Urine Urobilinogen NORMAL NORMAL MG/DL Urine Leukocyte Esterase NEGATIVE NEGATIVE Urine RBC (Auto) NEGATIVE NEGATIVE Urine RBC RARE /HPF Urine WBC NONE /HPF Urine Squamous Epithelial Cells 0-2 /HPF Urine Crystals NONE /LPF Urine Bacteria NEGATIVE /HPF Urine Casts NONE /LPF Urine Mucus NEGATIVE /LPF Urine Culture Indicated NO My Orders Orders - SOFY WOLF MD Cbc With Automated Diff (07/11/19 14:21) Comprehensive Metabolic Panel (07/11/19 14:21) Hs C Reactive Protein (07/11/19 14:21) Magnesium (07/11/19 14:21) Ua Culture If Indicated (07/11/19 14:21) Chest 1 View, Ap/Pa Only (07/11/19 14:21) Straight Cath For Spec.-Adult (07/11/19 14:21) Ed Iv/Invasive Line Start (07/11/19 14:21) Ns Iv 500 Ml (Sodium Chloride 0.9%) (07/11/19 14:21) Ekg Tracing (07/11/19 14:25) Thyroid Analyzer (07/11/19 14:25) Troponin I (07/11/19 14:25) Medications Given in ED Current Medications Medications Dose Ordered Sig/Kendra Route Start Time Stop Time Status Last Admin Dose Admin Sodium Chloride 500 ml @ 0 mls/hr Q0M ONCE IV 07/11/19 14:21 07/11/19 14:23 DC 07/11/19 14:54 500 MLS/HR Vital Signs/I&O 07/11/19 13:48 Temp 36.5 Pulse 80 Resp 22 B/P (MAP) 173/95 (121) Capillary Refill : Less Than 3 Seconds Blood Pressure Mean: 121 POS Progress Note : Progress Note Seen and evaluated. IV, labs, UA, EKG and chest x-ray ordered. Globally weak but no pronator drift and no obvious cranial nerve abnormality or focal deficits. Monitor patient. 1620: Labs and evaluation reviewed with no significant findings. Overall this may be deconditioning secondary to fracture a month ago and immobility. She is seeing her doctor tomorrow and I have asked her to talk to him about possibility of physical therapy which I think she would benefit gr eatly from. I will send a copy to the chart to Dr. Browne. No indication for admission. Discharged home with return precautions. Patient verbalize understanding instructions and agreement with plan. ECG Initial ECG Impression Date: Jul 11, 2019 Initial ECG Impression Time: 14:52 Initial ECG Rate: 72 Initial ECG Rhythm: Normal Sinus Comment Sinus rhythm with left bundle branch block. Left axis deviation. No evidence of ST elevation FL. Similar to previous with progression of left bundle from 06/16/15. Interpreted by me. Diagnostic Imaging Diagonstic Imaging: Xray Plain Films/CT/US/NM/MRI: chest Comments [facility], [facility]. POS [place], [place] POS NAME: JOEL CABALLERO [facility] REC#: [id number] PT STATUS: REG ER : 1935 PHYSICIAN: SOFY WOLF MD ADMIT DATE: 07/11/19/ER Draft POSDate of Exam:07/11/19 CHEST 1 VIEW, AP/PA ONLY INDICATION: Weakness. TIME OF EXAM: 2:44 p.m. COMPARISON: Correlation is made with prior chest from 03/15/2019. FINDINGS: The heart size is normal. The pulmonary vascularity is unremarkable. The lungs are clear. No infiltrate, effusion or pneumothorax is detected. IMPRESSION: No acute cardiopulmonary process is detected. Dictated on workstation # [id number] Dict: 07/11/19 1458 Trans: 07/11/19 1501 [id number] Interpreted by: JEREMY MCKEON MD Electronically signed by: Departure Impression Primary Impression: Generalized weakness Additional Impression: Hyponatremia Disposition: 01 HOME, SELF-CARE Condition: Stable Departure-Patient Inst. Decision time for Depature: 16:24 Referrals: CARISSA BROWNE MD (PCP/Family) Primary Care Physician Patient Instructions: Generalized Weakness (DC), Hyponatremia (DC) Add. Discharge Instructions: All discharge instructions reviewed with patient and/or family. Voiced un derstanding. Follow-up with her doctor tomorrow for recheck and further evaluation. A copy the chart was sent to him as well. Return for worse pain, fever, vomiting, weakness, breathing problems or other concerns as needed. Discussed with your doctor regarding possibility of outpatient physical therapy. Copy Copies To 1: CARISSA BROWNE MD, TIMOTHY D MD Jul 11, 2019 14:33 POS
[2019-07-11 14:41] LABS: BILIRUBIN,URINE NEGATIVE (NEGATIVE); CLARITY,URINE CLEAR; COLOR,URINE YELLOW; GLUCOSE, URINE (UA) NEGATIVE (NEGATIVE); KETONES,URINE NEGATIVE (NEGATIVE); LEUKOCYTE ESTERASE ,URINE NEGATIVE (NEGATIVE); NITRITE,URINE NEGATIVE (NEGATIVE); PH,URINE 6 (5-9); PROTEIN,URINE NEGATIVE (NEGATIVE)
[2019-07-11 14:41] LABS: BASOPHILS # (AUTO) 0.1 10^3/uL (0.0-0.1); BASOPHILS % (AUTO) 1 % (0-10); EOSINOPHILS # (AUTO) 0.2 10^3/uL (0.0-0.3); EOSINOPHILS % (AUTO) 5 % (0-10); HEMATOCRIT 32 % (35-52); LYMPHOCYTES % (AUTO) 19 % (12-44); MEAN CORPUSCULAR HEMOGLOBIN 30 PG (25-34); MEAN CORPUSCULAR HGB CONC 34 G/DL (32-36); MEAN CORPUSCULAR VOLUME 88 FL (80-99); MEAN PLATELET VOLUME 8.1 FL (7.4-10.4); MONOCYTES # (AUTO) 0.7 X 10^3 (0.0-1.0); MONOCYTES % (AUTO) 14 % (0-12); NEUTROPHILS # (AUTO) 3.1 X 10^3 (1.8-7.8); NEUTROPHILS % (AUTO) 61 % (42-75); PLATELET COUNT 268 10^3/uL (130-400); RED CELL DISTRIBUTION WIDTH 12.6 % (10.0-14.5); WHITE BLOOD COUNT 5.1 10^3/uL (4.3-11.0)
[2019-07-11 14:51] LABS: BACTERIA,URINE NEGATIVE /HPF; RBC,URINE RARE /HPF; SQUAMOUS EPITHELIAL CELL,UR 0-2 /HPF
[2019-07-11 15:00] LABS: ALANINE AMINOTRANSFERASE 12 U/L (0-55); ALBUMIN 3.7 GM/DL (3.2-4.5); ALKALINE PHOSPHATASE 38 U/L (40-136); BILIRUBIN,TOTAL 0.3 MG/DL (0.1-1.0); BUN/CREATININE RATIO 14; CALCIUM 8.4 MG/DL (8.5-10.1); CARBON DIOXIDE 22 MMOL/L (21-32); CHLORIDE 98 MMOL/L (98-107); CREATININE SERUM 0.95 MG/DL (0.60-1.30); GFR ESTIMATED 56; GLUCOSE 96 MG/DL (70-105); MAGNESIUM 1.7 MG/DL (1.6-2.4); SODIUM 129 MMOL/L (135-145); TOTAL PROTEIN 5.9 GM/DL (6.4-8.2)
--- NOTE | 2019-07-11 15:01 | Diagnostic Imaging Report ---
INDICATION: Weakness. TIME OF EXAM: 2:44 p.m. COMPARISON: Correlation is made with prior chest from 03/15/2019. FINDINGS: The heart size is normal. The pulmonary vascularity is unremarkable. The lungs are clear. No infiltrate, effusion or pneumothorax is detected. IMPRESSION: No acute cardiopulmonary process is detected. Dictated by: Dictated on workstation # [id number]
[2019-07-11 15:21] LABS: TSH (THYROID ANALYZER) 0.53 UIU/ML (0.35-4.94)
--- NOTE | 2019-07-11 16:32 | NUR ---
NOTIFIED EVERYTHING WAS BACK ET WAS WAITING ON DRRad ASSISTED PT TO THE BATHROOM. PT CONTINUES TO BE UNSTEADY ON FEET.
[2019-07-11 17:02] VITALS: BP 187/82
== END 2019-07-11 17:02 | disposition home or self-care (01) ==
LOC: EDUNIT# 13:36 → ER 13:37
DX: R53.1 Weakness (principal); E87.1 Hypo-osmolality and hyponatremia; I10 Essential (primary) hypertension; E78.00 Pure hypercholesterolemia, unspecified; I25.10 Atherosclerotic heart disease of native coronary artery without angina pectoris; J44.9 Chronic obstructive pulmonary disease, unspecified; F41.9 Anxiety disorder, unspecified; K21.9 Gastro-esophageal reflux disease without esophagitis; K58.9 Irritable bowel syndrome, unspecified; Z88.0 Allergy status to penicillin; Z88.8 Allergy status to other drugs, medicaments and biological substances; Z87.828 Personal history of other (healed) physical injury and trauma; Z87.81 Personal history of (healed) traumatic fracture; Z79.82 Long term (current) use of aspirin; Z95.5 Presence of coronary angioplasty implant and graft; Z80.0 Family history of malignant neoplasm of digestive organs; Z80.42 Family history of malignant neoplasm of prostate; Z80.1 Family history of malignant neoplasm of trachea, bronchus and lung
CPT/HCPCS: 36415; 51701; 71045; 80053; 81000; 83735; 84443; 84484; 85025; 86141; 93005; 96360

== ENCOUNTER 2019-09-28 10:27 | Outpatient (RCR) | payer MEDICARE | END 2019-09-28 11:12 | disposition home or self-care (01) | PROVIDERS: ATTEND Internal Medicine | DX: J45.909 Unspecified asthma, uncomplicated (principal); I11.9 Hypertensive heart disease without heart failure; M54.31 Sciatica, right side; R53.1 Weakness; Z87.81 Personal history of (healed) traumatic fracture ==

== ENCOUNTER → 2019-11-02 | Outpatient (CLI) | payer MEDICARE | LOC: CARD 10:11 | PROVIDERS: ATTEND Physician Assistant | DX: I08.1 Rheumatic disorders of both mitral and tricuspid valves (principal); I25.10 Atherosclerotic heart disease of native coronary artery without angina pectoris; I10 Essential (primary) hypertension; I44.7 Left bundle-branch block, unspecified; I27.20 Pulmonary hypertension, unspecified | CPT/HCPCS: 93306 ==

== ENCOUNTER 2020-01-28 11:59 | Emergency (ER) | payer MEDICARE ==
[~2020-01-28] VITALS: Ht 160 cm; Wt 57.0 kg
--- OUTSIDE RECORDS SUMMARY | 2020-01-28 12:04 | XMS REPORT | Encounter Summary ---
Author Author [facility] Organization [facility] Address Unknown Phone Unavailable Care Team Providers Care Sociology Research Assistant Name Role Phone PCP Unavailable Encounter Details Care Team Description Date Type Department Shiva Hendrix [phone] Screening for malignant neoplasm of the breast (Primary Dx) 01/23/1993 Outpatient Historical Social History Date Tobacco Use Types Packs/Day Years Used Never Assessed Sex Assigned at Date Recorded Not on file Industry Job Start Date Occupation Not on file Not on file Not on file Travel End Travel History Travel Start No recent travel history available. documented as of this encounter Plan of Treatment Not on filedocumented as of this encounter Visit Diagnoses Diagnosis Screening for malignant neoplasm of the breast - Primary documented in this encounter
--- OUTSIDE RECORDS SUMMARY | 2020-01-28 12:04 | XMS REPORT | Clinical Summary ---
Author Author [facility] Organization [facility] Address Unknown Phone Unavailable Care Team Providers Care Fireproof Door Assembler Name Role Phone PCP Unavailable Allergies Not on File Medications Not on file Active Problems Not on file Social History Date Tobacco Use Types Packs/Day Years Used Never Assessed Sex Assigned at Date Recorded Not on file Industry Job Start Date Occupation Not on file Not on file Not on file Travel End Travel History Travel Start No recent travel history available. Last Filed Vital Signs Not on file Plan of Treatment Health Maintenance Due Date Last Done Comments ZOSTER VACCINE (1 of 2) 1983 OSTEOPOROSIS SCREENING 1998 PNEUMOCOCCAL VACCINE 65+ 1998 YEARS (1 of 2 - PCV13) INFLUENZA VACCINE 04/13/2019 Results Not on filefrom Last 3 Months
--- OUTSIDE RECORDS SUMMARY | 2020-01-28 12:05 | XMS REPORT | Clinical Summary ---
Author Author [facility], [place], [place], [facility] Organization [facility] [place], [place], [place], [facility] Address Unknown Phone Unavailable Care Team Providers Care Packing Tractor Machine Operator Name Role Phone Stanley Álvarez MD PCP Allergies Not on File Medications Not on [...]
--- OUTSIDE RECORDS SUMMARY | 2020-01-28 12:05 | XMS REPORT | Encounter Summary ---
Author Author [facility], [place], [place], [place], [facility] Organization [facility] [place], [place], [facility] Address Unknown Phone Unavailable Care Team Providers Care Airport Electrician Name Role Phone Stanley Álvarez MD PCP Encounter Details Care Team Description Date Type Department Johnnie Portillo MD [address] [place] [address] Coronary Atherosclerosis of [place] Coron moise Artery (Primary Dx) 07/03/2009 Inpatient [facility] [address] Historical MEDICAL CARDIAC [address] [facility] [place] [phone] Social History Date Tobacco Use Types Packs/Day Years Used Never Assessed Sex Assigned at Date Recorded Not on file Industry Job Start Date Occupation Not on file Not on file Not on file Travel End Travel History Travel Start No recent travel history available. documented as of this encounter Plan of Treatment Not on filedocumented as of this encounter Visit Diagnoses Diagnosis Coronary atherosclerosis of [place] jack[place] nary artery - Primary documented in this encounter
--- OUTSIDE RECORDS SUMMARY | 2020-01-28 12:06 | XMS REPORT | Continuity of Care Document ---
Author Organization Unknown Address Unknown Phone Unavailable Allergies Active Description Code Type Severity Reaction Onset Reported/Identified Relationship to Patient Clinical Status Yes Penicillins [id number] Drug Aller gy Moderate RASH 07/29/2006 Yes Plavix Plavix Moderate itching 12/27/2012 Yes clopidogrel [id number] Drug Aller gy Mild ITCHING 04/03/2015 Medications There is no data. 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 08/12/1111 CARISSA BROWNE MD Ot J45.9 09 UNSPECIFIED ASTHMA, UNCOMPLICATED 08/12/1111 CARISSA BROWNE MD Ot M54.3 1 SCIATICA, RIGHT SIDE 08/12/1111 CARISSA BROWNE MD Ot R53.1 WEAKNESS 08/12/1111 CARISSA BROWNE MD Ot Z87.8 1 PERSONAL HISTORY OF (HEALED) TRAUMATIC F 10/27/2009 Ot V45.82 10/27/2009 Ot V57.89 10/30/2009 Ot V45.82 10/30/2009 Ot V57.89 10/28/2010 Ot 272.4 HYPE RLIPIDEMIA NEC/NOS 10/28/2010 Ot 401.9 HYPE RTENSION NOS 10/28/2010 Ot 414.01 COR ONARY ATHEROSCLEROSIS OF EEK CORON 10/28/2010 Ot 426.3 LEFT BB BLOCK NEC 10/28/2010 Ot 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, NOS 10/28/2010 Ot 780.4 DIZZ INESS AND GIDDINESS 10/28/2010 Ot 784.0 HEAD ACHE 10/28/[address] PAIN NEC 10/28/2010 Ot 787.02 ANTHONY SEA ALONE 10/28/2010 Ot V45.82 PER CUTANEOUS TRANSLUM CORON ANGIOPLASTY 11/26/2010 Ot 272.4 HYPE RLIPIDEMIA NEC/NOS 11/26/2010 Ot 401.9 HYPE RTENSION NOS 11/26/2010 Ot 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 4 HYPERLIPIDEMIA NEC/NOS 06/07/2013 HECTOR WALKER MD Ot 401. 9 HYPERTENSION NOS 06/07/2013 HECTOR WALKER MD Ot 414. 01 CORONARY ATHEROSCLEROSIS OF EEK CORON 06/07/2013 HECTOR WALKER MD Ot 414. 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 50 CHEST PAIN NOS 06/07/2013 HECTOR WALKER MD Ot 794. 30 ABN CARDIOVASC STUDY NOS 06/07/2013 HECTOR WALKER MD Ot V45. 82 PERCUTANEOUS TRANSLUM CORON ANGIOPLASTY 01/10/2014 CARISSA BROWNE MD Ot 785.1 PALPITATIONS 10/15/2014 Ot 414.01 10/15/2014 Ot 786.09 10/15/2014 Ot 414.01 10/15/2014 Ot 786.50 10/15/2014 Ot 611.72 10/15/2014 Ot V76.12 10/15/2014 Ot 793.80 10/15/2014 Ot 611.72 10/15/2014 Ot V76.12 10/15/2014 Ot V76.12 10/15/2014 Ot 401.9 10/15/2014 Ot 414.01 10/15/2014 Ot 397.0 10/15/2014 Ot 401.9 10/15/2014 Ot 414.00 10/15/2014 Ot 424.0 10/15/2014 CARISSA BROWNE MD Ot 793.8 2 10/15/2014 CARISSA BROWNE MD Ot V76.1 2 10/15/2014 CARISSA BROWNE MD Ot 785.6 10/15/2014 CARISSA BROWNE MD Ot 793.8 0 10/15/2014 CHUCK HENRY Ot 401.9 10/15/2014 CHUCK HENRY Ot 414.00 10/15/2014 CHUCK HENRY Ot 416.8 10/15/2014 Ot 793.80 11/07/2014 HECTOR WALKER MD Ot 272. 4 11/07/2014 HECTOR WALKER MD Ot 401. 9 11/07/2014 HECTOR WALKER MD Ot 414. 00 11/07/2014 HECTOR WALKER MD Ot 786. 50 03/26/2015 HECTOR WALKER MD Ot 272. 4 HYPERLIPIDEMIA NEC/NOS 03/26/2015 HECTOR WALKER MD Ot 276. 1 HYPOSMOLALITY 03/26/2015 HECTOR WALKER MD Ot 401. 9 HYPERTENSION NOS 03/26/2015 HECTOR WALKER MD Ot 414. 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 81 ESOPHAGEAL REFLUX 03/26/2015 HECTOR WALKER MD Ot 786. 59 CHEST PAIN NEC 03/26/2015 HECTOR WALKER MD Ot V45. 82 PERCUTANEOUS TRANSLUM CORON ANGIOPLASTY 04/03/2015 HECTOR WALKER MD Ot 272. 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 3 LEFT BB BLOCK NEC 04/03/2015 HECTOR WALKER MD Ot 496 CHR AIRWAY OBSTRUCT NEC 04/03/2015 HECTOR WALKER MD Ot 530. 81 ESOPHAGEAL REFLUX 04/03/2015 HECTOR WALKER MD Ot 786. 50 CHEST PAIN NOS 04/03/2015 HECTOR WALKER MD Ot V45. 82 PERCUTANEOUS TRANSLUM CORON ANGIOPLASTY 04/03/2015 HECTOR WALKER MD, Ot V58. 69 OT MED,LT,CURRENT USE 05/02/2015 HOLLIE JONES, CARISSA Ruff Ot 496 05/10/2015 CARISSA BROWNE MD Ot 496 05/15/2015 CARISSA BROWNE MD Ot 496 05/15/2015 CARISSA BROWNE MD Ot 786.0 9 05/22/2015 WENDIE MORENO DISPATCH CLERK Ot 780.60 05/22/2015 WENDIE MORENO DISPATCH CLERK Ot 786.2 05/23/2015 CARISSA BROWNE MD Ot 496 05/23/2015 CARISSA BROWNE MD Ot 786.0 9 05/28/2015 CARISSA BROWNE MD Ot 496 05/28/2015 CARISSA BROWNE MD Ot 786.0 9 05/28/2015 CARISSA BROWNE MD Ot 786.2 05/30/2015 WENDIE MORENO DISPATCH CLERK Ot 780.60 05/30/2015 WENDIE MORENO DISPATCH CLERK Ot 786.2 06/07/2015 CARISSA BROWNE MD Ot 496 06/07/2015 CARISSA BROWNE MD Ot 786.0 9 06/07/2015 CARISSA BROWNE MD Ot 786.2 06/16/2015 HECTOR WALKER MD Ot E78. 5 HYPERLIPIDEMIA, UNSPECIFIED 06/16/2015 HECTOR WALKER MD Ot I11. 9 HYPERTENSIVE HEART DISEASE WITHOUT HEART 06/16/2015 HECTOR WALKER MD Ot I25. 10 ATHSCL HEART DISEASE OF EEK CORONARY 06/16/2015 HECTOR WALKER MD Ot I27. 2 OTHER SECONDARY PULMONARY HYPERTENSION 06/16/2015 HECTOR WALKER MD Ot I44. 7 LEFT BUNDLE-BRANCH BLOCK, UNSPECIFIED 06/16/2015 HECTOR WALKER MD Ot I65. 23 OCCLUSION AND STENOSIS OF BILATERAL [place] 06/16/2015 HECTOR WALKER MD Ot J44. 9 CHRONIC OBSTRUCTIVE PULMONARY DISEASE, U 06/16/2015 HECTOR WALKER MD Ot K21. 9 GASTRO-ESOPHAGEAL REFLUX DISEASE WITHOUT 06/16/2015 HECTOR WALKER MD Ot R07. 9 CHEST PAIN, UNSPECIFIED 06/16/2015 HECTOR WALKER MD Ot Z87.891 PERSONAL HISTORY OF NICOTINE DEPENDENCE 06/16/2015 HECTOR WALKER MD Ot Z95. 5 PRESENCE OF CORONARY ANGIOPLASTY IMPLANT 06/21/2015 YOLANDA SERNA DO Ot G47. 33 OBSTRUCTIVE SLEEP APNEA (ADULT) (PEDIATR 06/21/2015 YOLANDA SERNA DO Ot I10 ESSENTIAL (PRIMARY) HYPERTENSION 08/12/2015 CARISSA BROWNE MD Ot Z12.3 1 08/16/2015 MINO BARRIENTOS APRN Ot G47.33 OBSTRUCTIVE SLEEP APNEA (ADULT) (PEDIATR 08/16/2015 MINO BARRIENTOS APRN Ot I10 ESSENTIAL (PRIMARY) HYPERTENSION 01/24/2016 Ot 611.72 LUM P OR MASS IN BREAST 01/24/2016 Ot V76.12 OTH SCREEN MAMMO- MALIGN NEOPLASM OF [place] 01/24/2016 Ot V76.12 OTH SCREEN MAMMO- MALIGN NEOPLASM OF [place] 01/24/2016 Ot 401.9 HYPE RTENSION NOS 01/24/2016 Ot 414.01 COR ONARY ATHEROSCLEROSIS OF EEK CORON 01/24/2016 Ot 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 DISEASE 01/24/2016 Ot 401.9 HYPE RTENSION NOS 01/24/2016 Ot 414.00 COR ON ATHEROSCLER NOS TYPE VESSEL, NATIV 01/24/2016 Ot 424.0 MITR AL VALVE DISORDER 01/24/2016 CARISSA BROWNE MD Ot 793.8 2 INCONCLUSIVE MAMMOGRAM 01/24/2016 CARISSA BROWNE MD Ot V76.1 2 OTH SCREEN MAMMO-MALIGN NEOPLASM OF [place] 01/24/2016 CARISSA BROWNE MD Ot 785.6 ENLARGEMENT LYMPH NODES 01/24/2016 CARISSA BROWNE MD Ot 793.8 0 UNSPEC ABNORMAL MAMMOGRAM 01/24/2016 CHUCK HENRY Ot 401.9 HYPERTENSION NOS 01/24/2016 CHUCK HENRY Ot 414.00 CORON ATHEROSCLER NOS TYPE VESSEL, NATIV 01/24/2016 CHUCK HENRY Ot 416.8 CHR PULMON HEART DIS NEC 01/24/2016 Ot 793.80 UNS PEC ABNORMAL MAMMOGRAM 01/24/2016 HECTOR WALKER MD Ot 272. 4 HYPERLIPIDEMIA NEC/NOS 01/24/2016 HECTOR WALKER MD Ot 401. 9 HYPERTENSION NOS 01/24/2016 HECTOR WALKER MD Ot 414. 00 CORON ATHEROSCLER NOS TYPE VESSEL, NATIV 01/24/2016 HECTOR WALKER MD Ot 786. 50 CHEST PAIN NOS 01/24/2016 CARISSA BROWNE MD Ot 496 CHR AIRWAY OBSTRUCT NEC 01/24/2016 CARISSA BROWNE MD Ot 786.0 9 RESPIRATORY ABNORM NEC 01/24/2016 CARISSA BROWNE MD Ot 496 CHR AIRWAY OBSTRUCT NEC 01/24/2016 WENDIE MORENO DISPATCH CLERK Ot 780.60 FEVER, UNSPECIFIED 01/24/2016 WENDIE MORENO DISPATCH CLERK Ot 786.2 COUGH 01/24/2016 CARISSA BROWNE MD Ot 496 CHR AIRWAY OBSTRUCT NEC 01/24/2016 CARISSA BROWNE MD Ot 786.0 9 RESPIRATORY ABNORM NEC 01/24/2016 CARISSA BROWNE MD Ot 786.2 COUGH 01/24/2016 CARISSA BROWNE MD Ot Z12.3 1 ENCNTR SCREEN MAMMOGRAM FOR MALIGNANT NE 01/27/2016 CHUCK HENRY Ot E78.0 PURE HYPERCHOLESTEROLEMIA 01/27/2016 CHUCK HENRY Ot G47.33 OBSTRUCTIVE SLEEP APNEA (ADULT) (PEDIATR 01/27/2016 CHUCK HENRY Ot I25.10 ATHSCL HEART DISEASE OF EEK CORONARY 01/27/2016 CHUCK HENRY Ot I44.7 LEFT BUNDLE-BRANCH BLOCK, UNSPECIFIED 01/28/2016 CHUCK HENRY Ot E78.0 PURE HYPERCHOLESTEROLEMIA 01/28/2016 CHUCK HENRY Ot G47.33 OBSTRUCTIVE SLEEP APNEA (ADULT) (PEDIATR 01/28/2016 CHUCK HENRY Ot I25.10 ATHSCL HEART DISEASE OF EEK CORONARY 01/28/2016 DURAN-TIFFANIE PA, CHUCK K Ot I44.7 LEFT BUNDLE-BRANCH BLOCK, UNSPECIFIED 02/18/2016 CHUCK HENRY Ot E78.0 PURE HYPERCHOLESTEROLEMIA 02/18/2016 CHUCK HENRY Ot G47.33 OBSTRUCTIVE SLEEP APNEA (ADULT) (PEDIATR 02/18/2016 CHUCK HENRY Ot I25.10 ATHSCL HEART DISEASE OF EEK CORONARY 02/18/2016 CHUCK HENRY Ot I44.7 LEFT BUNDLE-BRANCH BLOCK, UNSPECIFIED 02/21/2016 CHUCK HENRY Ot E78.0 PURE HYPERCHOLESTEROLEMIA 02/21/2016 CHUCK HENRY Ot G47.33 OBSTRUCTIVE SLEEP APNEA (ADULT) (PEDIATR 02/21/2016 CHUCK HENRY Ot I25.10 ATHSCL HEART DISEASE OF EEK CORONARY 02/21/2016 CHUCK HENRY Ot I44.7 LEFT BUNDLE-BRANCH BLOCK, UNSPECIFIED 08/04/2016 Ot 611.72 LUM P OR MASS IN BREAST 08/04/2016 Ot V76.12 OTH SCREEN MAMMO- MALIGN NEOPLASM OF [place] 08/04/2016 Ot V76.12 OTH SCREEN MAMMO- MALIGN NEOPLASM OF [place] 08/04/2016 Ot 401.9 HYPE RTENSION NOS 08/04/2016 Ot 414.01 COR ONARY ATHEROSCLEROSIS OF EEK CORON 08/04/2016 Ot 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 DISEASE 08/04/2016 Ot 401.9 HYPE RTENSION NOS 08/04/2016 Ot 414.00 COR ON ATHEROSCLER NOS TYPE VESSEL, NATIV 08/04/2016 Ot 424.0 MITR AL VALVE DISORDER 08/04/2016 CARISSA BROWNE MD Ot 793.8 2 INCONCLUSIVE MAMMOGRAM 08/04/2016 CARISSA BROWNE MD Ot V76.1 2 OTH SCREEN MAMMO-MALIGN NEOPLASM OF [place] 08/04/2016 CARISSA BROWNE MD Ot 785.6 ENLARGEMENT LYMPH NODES 08/04/2016 CARISSA BROWNE MD Ot 793.8 0 UNSPEC ABNORMAL MAMMOGRAM 08/04/2016 CHUCK HENRY Ot 401.9 HYPERTENSION NOS 08/04/2016 CHCUK HENRY Ot 414.00 CORON ATHEROSCLER NOS TYPE VESSEL, NATIV 08/04/2016 CHUCK HENRY Ot 416.8 CHR PULMON HEART DIS NEC 08/04/2016 Ot 793.80 UNS PEC ABNORMAL MAMMOGRAM 08/04/2016 HECTOR WALKER MD Ot 272. 4 HYPERLIPIDEMIA NEC/NOS 08/04/2016 HECTOR WALKER MD Ot 401. 9 HYPERTENSION NOS 08/04/2016 HECTOR WALKER MD Ot 414. 00 CORON ATHEROSCLER NOS TYPE VESSEL, NATIV 08/04/2016 HECTOR WALKER MD Ot 786. 50 CHEST PAIN NOS 08/04/2016 CARISSA BROWNE MD Ot 496 CHR AIRWAY OBSTRUCT NEC 08/04/2016 CARISSA BROWNE MD Ot 786.0 9 RESPIRATORY ABNORM NEC 08/04/2016 CARISSA BROWNE MD Ot 496 CHR AIRWAY OBSTRUCT NEC 08/04/2016 WENDIE MORENO APRN Ot 780.60 FEVER, UNSPECIFIED 08/04/2016 WENDIE MORENO APRN Ot 786.2 COUGH 08/04/2016 CARISSA BROWNE MD Ot 496 CHR AIRWAY OBSTRUCT NEC 08/04/2016 CARISSA BROWNE MD Ot 786.0 9 RESPIRATORY ABNORM NEC 08/04/2016 CARISSA BROWNE MD Ot 786.2 COUGH 08/04/2016 CARISSA BROWNE MD Ot Z12.3 1 ENCNTR SCREEN MAMMOGRAM FOR MALIGNANT NE 08/04/2016 CHUCK HENRY Ot E78.0 PURE HYPERCHOLESTEROLEMIA 08/04/2016 CHUCK HENRY Ot G47.33 OBSTRUCTIVE SLEEP APNEA (ADULT) (PEDIATR 08/04/2016 CHUCK HENRY Ot I25.10 ATHSCL HEART DISEASE OF EEK CORONARY 08/04/2016 CHUCK HENRY Ot I44.7 LEFT BUNDLE-BRANCH BLOCK, UNSPECIFIED 08/04/2016 WENDIE MORENO APRN Ot Z12.31 ENCNTR SCREEN MAMMOGRAM FOR MALIGNANT NE 08/04/2016 WENDIE MORENO APRN Ot Z12.31 ENCNTR SCREEN MAMMOGRAM FOR MALIGNANT NE 08/04/2016 WENDIE MORENO APRN Ot Z12.31 ENCNTR SCREEN MAMMOGRAM FOR MALIGNANT NE 08/05/2016 WENDIE MORENO APRN Ot Z12.31 ENCNTR SCREEN MAMMOGRAM FOR MALIGNANT NE 08/10/2016 TIFFANIEZAIDN R DISPATCH CLERK Ot Z12.31 ENCNTR SCREEN MAMMOGRAM FOR MALIGNANT NE 08/26/2016 DONTA SANCHEZ, CHUCK K Ot I25.10 ATHSCL HEART DISEASE OF EEK CORONARY 08/26/2016 TIFFANIEZAIDPreston Monroy DISPATCH CLERK Ot Z12.31 ENCNTR SCREEN MAMMOGRAM FOR MALIGNANT NE 08/27/2016 DONTA SANCHEZ, CHUCK K Ot I10 ESSENTIAL (PRIMARY) HYPERTENSION 08/27/2016 DONTA SANCHEZ, CHUCK K Ot I25.10 ATHSCL HEART DISEASE OF EE[place] CORONARY 08/27/2016 DONTA SANCHEZ, CHUCK K Ot I44.7 LEFT BUNDLE-BRANCH BLOCK, UNSPECIFIED 08/27/2016 DONTA SANCHEZ, CHUCK K Ot R06.00 DYSPNEA, UNSPECIFIED 08/27/2016 DONTA SANCHEZ, CHUCK K Ot I10 ESSENTIAL (PRIMARY) HYPERTENSION 08/27/2016 DONTA SANCHEZ, CHUCK K Ot I25.10 ATHSCL HEART DISEASE OF EEK CORONARY 08/27/2016 DONTA SANCHEZ, CHUCK K Ot I44.7 LEFT BUNDLE-BRANCH BLOCK, UNSPECIFIED 08/27/2016 DONTA SANCHEZ, CHUCK K Ot R06.00 DYSPNEA, UNSPECIFIED 09/21/2016 DONTA SANCHEZ, CHUCK K Ot I10 ESSENTIAL (PRIMARY) HYPERTENSION 09/21/2016 DONTA SANCHEZ, CHUCK K Ot I25.10 ATHSCL HEART DISEASE OF EE[place] CORONARY 09/21/2016 DONTA SANCHEZ, CHUCK K Ot I44.7 LEFT BUNDLE-BRANCH BLOCK, UNSPECIFIED 09/21/2016 DONTA SANCHEZ, CHUCK K Ot R06.00 DYSPNEA, UNSPECIFIED 09/23/2016 DONTA SANCHEZ, CHUCK K Ot I10 ESSENTIAL (PRIMARY) HYPERTENSION 09/23/2016 DONTA SANCHEZ, CHUCK K Ot I25.10 ATHSCL HEART DISEASE OF EEK CORONARY 09/23/2016 DONTA SANHCEZ, CHUCK K Ot I44.7 LEFT BUNDLE-BRANCH BLOCK, UNSPECIFIED 09/23/2016 DONTA SANCHEZ, CHUCK K Ot R06.00 DYSPNEA, UNSPECIFIED 07/26/2017 CARISSA BROWNE MD Ot Z12.3 1 ENCNTR SCREEN MAMMOGRAM FOR MALIGNANT NE 08/31/2017 CARISSA BROWNE MD Ot Z12.3 1 ENCNTR SCREEN MAMMOGRAM FOR MALIGNANT NE 06/23/2018 CARISSA BROWNE MD Ot 793.8 2 INCONCLUSIVE MAMMOGRAM 06/23/2018 CARISSA BROWNE MD Ot V76.1 2 OTH SCREEN MAMMO-MALIGN NEOPLASM OF [place] 06/23/2018 CARISSA BROWNE MD Ot 785.6 ENLARGEMENT LYMPH NODES 06/23/2018 CARISSA BROWNE MD Ot 793.8 0 UNSPEC ABNORMAL MAMMOGRAM 06/23/2018 CHUCK HENRY Ot 401.9 HYPERTENSION NOS 06/23/2018 CHUCK HENRY Ot 414.00 CORON ATHEROSCLER NOS TYPE VESSEL, NATIV 06/23/2018 CHUCK HENRY Ot 416.8 CHR PULMON HEART DIS NEC 06/23/2018 Ot 793.80 UNS PEC ABNORMAL MAMMOGRAM 06/23/2018 HECTOR WALKER MD Ot 272. 4 HYPERLIPIDEMIA NEC/NOS 06/23/2018 HECTOR WALKER MD Ot 401. 9 HYPERTENSION NOS 06/23/2018 HECTOR WALKER MD Ot 414. 00 CORON ATHEROSCLER NOS TYPE VESSEL, NATIV 06/23/2018 HECTOR WALKER MD Ot 786. 50 CHEST PAIN NOS 06/23/2018 CARISSA BROWNE MD Ot 496 CHR AIRWAY OBSTRUCT NEC 06/23/2018 CARISSA BROWNE MD Ot 786.0 9 RESPIRATORY ABNORM NEC 06/23/2018 CARISSA BROWNE MD Ot 496 CHR AIRWAY OBSTRUCT NEC 06/23/2018 WENDIE MORENO DISPATCH CLERK Ot 780.60 FEVER, UNSPECIFIED 06/23/2018 WENDIE MORENO R DISPATCH CLERK Ot 786.2 COUGH 06/23/2018 CARISSA BROWNE MD Ot 496 CHR AIRWAY OBSTRUCT NEC 06/23/2018 CARISSA BROWNE MD Ot 786.0 9 RESPIRATORY ABNORM NEC 06/23/2018 CARISSA BROWNE MD Ot 786.2 COUGH 06/23/2018 CARISSA BROWNE MD Ot Z12.3 1 ENCNTR SCREEN MAMMOGRAM FOR MALIGNANT NE 06/23/2018 CHUCK HENRY Ot E78.0 PURE HYPERCHOLESTEROLEMIA 06/23/2018 CHUCK HENRY Ot G47.33 OBSTRUCTIVE SLEEP APNEA (ADULT) (PEDIATR 06/23/2018 CHUCK HENRY Ot I25.10 ATHSCL HEART DISEASE OF EEK CORONARY 06/23/2018 CHUCK HENRY Ot I44.7 LEFT BUNDLE-BRANCH BLOCK, UNSPECIFIED 06/23/2018 DONTA SANCHEZ CHUCK K Ot I10 ESSENTIAL (PRIMARY) HYPERTENSION 06/23/2018 DONTA SANCHEZ CHUCK K Ot I25.10 ATHSCL HEART DISEASE OF EE[place] CORONARY 06/23/2018 CHUCK HENRY Ot I44.7 LEFT BUNDLE-BRANCH BLOCK, UNSPECIFIED 06/23/2018 CHUCK HENRY Ot R06.00 DYSPNEA, UNSPECIFIED 06/23/2018 WENDIE MORENO APRN Ot Z12.31 ENCNTR SCREEN MAMMOGRAM FOR MALIGNANT NE 06/23/2018 CARISSA BROWNE MD Ot Z12.3 1 ENCNTR SCREEN MAMMOGRAM FOR MALIGNANT NE 06/24/2018 CARISSA BROWNE MD Ot 793.8 2 INCONCLUSIVE MAMMOGRAM 06/24/2018 CARISSA BROWNE MD Ot V76.1 2 OTH SCREEN MAMMO-MALIGN NEOPLASM OF [place] 06/24/2018 CARISSA BROWNE MD Ot 785.6 ENLARGEMENT LYMPH NODES 06/24/2018 CARISSA BROWNE MD Ot 793.8 0 UNSPEC ABNORMAL MAMMOGRAM 06/24/2018 CHUCK HENRY Ot 401.9 HYPERTENSION NOS 06/24/2018 DONTA SANCHEZ CHUCK K Ot 414.00 CORON ATHEROSCLER NOS TYPE VESSEL, NATIV 06/24/2018 ERON HENRYTH Jyoti Ot 416.8 CHR PULMON HEART DIS NEC 06/24/2018 Ot 793.80 UNS PEC ABNORMAL MAMMOGRAM 06/24/2018 HECTOR WALKER MD Ot 272. 4 HYPERLIPIDEMIA NEC/NOS 06/24/2018 HECTOR WALKER MD Ot 401. 9 HYPERTENSION NOS 06/24/2018 HECTOR WALKER MD Ot 414. 00 CORON ATHEROSCLER NOS TYPE VESSEL, NATIV 06/24/2018 HECTOR WALKER MD Ot 786. 50 CHEST PAIN NOS 06/24/2018 CARISSA BROWNE MD Ot 496 CHR AIRWAY OBSTRUCT NEC 06/24/2018 CARISSA BROWNE MD Ot 786.0 9 RESPIRATORY ABNORM NEC 06/24/2018 CARISSA BROWNE MD Ot 496 CHR AIRWAY OBSTRUCT NEC 06/24/2018 WENDIE MORENO APRN Ot 780.60 FEVER, UNSPECIFIED 06/24/2018 WENDIE MORENO DISPATCH CLERK Ot 786.2 COUGH 06/24/2018 CARISSA BROWNE MD Ot 496 CHR AIRWAY OBSTRUCT NEC 06/24/2018 CARISSA BROWNE MD Ot 786.0 9 RESPIRATORY ABNORM NEC 06/24/2018 CARISSA BROWNE MD Ot 786.2 COUGH 06/24/2018 CARISSA BROWNE MD Ot Z12.3 1 ENCNTR SCREEN MAMMOGRAM FOR MALIGNANT NE 06/24/2018 CHUCK HENRY Ot E78.0 PURE HYPERCHOLESTEROLEMIA 06/24/2018 CHUCK HENRY Ot G47.33 OBSTRUCTIVE SLEEP APNEA (ADULT) (PEDIATR 06/24/2018 CHUCK HENRY Ot I25.10 ATHSCL HEART DISEASE OF EEK CORONARY 06/24/2018 CHUCK HENRY Ot I44.7 LEFT BUNDLE-BRANCH BLOCK, UNSPECIFIED 06/24/2018 CHUCK HENRY Ot I10 ESSENTIAL (PRIMARY) HYPERTENSION 06/24/2018 CHUCK HENRY Ot I25.10 ATHSCL HEART DISEASE OF EE[place] CORONARY 06/24/2018 CHUCK HENRY Ot I44.7 LEFT BUNDLE-BRANCH BLOCK, UNSPECIFIED 06/24/2018 CHUCK HENRY Ot R06.00 DYSPNEA, UNSPECIFIED 06/24/2018 WENDIE MORENO APRN Ot Z12.31 ENCNTR SCREEN MAMMOGRAM FOR MALIGNANT NE 06/24/2018 CARISSA BROWNE MD Ot Z12.3 1 ENCNTR SCREEN MAMMOGRAM FOR MALIGNANT NE 01/12/2019 CHUCK HENRY Ot 401.9 HYPERTENSION NOS 01/12/2019 CHUCK HENRY Ot 414.00 CORON ATHEROSCLER NOS TYPE VESSEL, NATIV 01/12/2019 CHUCK HENRY Ot 416.8 CHR PULMON HEART DIS NEC 01/12/2019 Ot 793.80 UNS PEC ABNORMAL MAMMOGRAM 01/12/2019 HECTOR WALKER MD Ot 272. 4 HYPERLIPIDEMIA NEC/NOS 01/12/2019 HECTOR WALKER MD Ot 401. 9 HYPERTENSION NOS 01/12/2019 HECTOR WALKER MD Ot 414. 00 CORON ATHEROSCLER NOS TYPE VESSEL, NATIV 01/12/2019 HECTOR WALKER MD Ot 786. 50 CHEST PAIN NOS 01/12/2019 CARISSA BROWNE MD Ot 496 CHR AIRWAY OBSTRUCT NEC 01/12/2019 CARISSA BROWNE MD Ot 786.0 9 RESPIRATORY ABNORM NEC 01/12/2019 CARISSA BROWNE MD Ot 496 CHR AIRWAY OBSTRUCT NEC 01/12/2019 WENDIE MORENO DISPATCH CLERK Ot 780.60 FEVER, UNSPECIFIED 01/12/2019 WENDIE MORENO DISPATCH CLERK Ot 786.2 COUGH 01/12/2019 CARISSA BROWNE MD Ot 496 CHR AIRWAY OBSTRUCT NEC 01/12/2019 CARISSA BROWNE MD Ot 786.0 9 RESPIRATORY ABNORM NEC 01/12/2019 CARISSA BROWNE MD Ot 786.2 COUGH 01/12/2019 CARISSA BROWNE MD Ot Z12.3 1 ENCNTR SCREEN MAMMOGRAM FOR MALIGNANT NE 01/12/2019 CHUCK HENRY Ot E78.0 PURE HYPERCHOLESTEROLEMIA 01/12/2019 CHUCK HENRY Ot G47.33 OBSTRUCTIVE SLEEP APNEA (ADULT) (PEDIATR 01/12/2019 CHUCK HENRY Ot I25.10 ATHSCL HEART DISEASE OF EE[place] CORONARY 01/12/2019 CHUCK HENRY Ot I44.7 LEFT BUNDLE-BRANCH BLOCK, UNSPECIFIED 01/12/2019 CHUCK HENRY Ot I10 ESSENTIAL (PRIMARY) HYPERTENSION 01/12/2019 CHUCK HENRY Ot I25.10 ATHSCL HEART DISEASE OF [place] CORONARY 01/12/2019 CHUCK HENRY Ot I44.7 LEFT BUNDLE-BRANCH BLOCK, UNSPECIFIED 01/12/2019 CHUCK HENRY Ot R06.00 DYSPNEA, UNSPECIFIED 01/12/2019 WENDIE MORENO DISPATCH CLERK Ot Z12.31 ENCNTR SCREEN MAMMOGRAM FOR MALIGNANT NE 01/12/2019 CARISSA BROWNE MD Ot Z12.3 1 ENCNTR SCREEN MAMMOGRAM FOR MALIGNANT NE 01/13/2019 TIFFANIEZAIDPreston Monroy DISPATCH CLERK Ot 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, 01/13/2019 TIFFANIE WENDIE Monroy DISPATCH CLERK Ot 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 01/13/2019 TIFFANIEZAIDPreston Monroy DISPATCH CLERK Ot 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.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, UNSPECIFIED 01/13/2019 TIFFANIEZAIDPreston Monroy DISPATCH CLERK Ot W19.XXXA UNSPECIFIED FALL, INITIAL ENCOUNTER 01/13/2019 TIFFANEI WENDIE Monroy DISPATCH CLERK Ot W22.09XA STRIKING AGAINST OTHER STATIONARY OBJECT 01/13/2019 TIFFANIEZAIDN R DISPATCH CLERK Ot Y92.[address] IN [facility] NON-INST[facility] (PRIVATE 02/02/2019 TIFFANIE WENDIE Monroy DISPATCH CLERK Ot 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, 02/02/2019 WENDIE MORENO DISPATCH CLERK Ot 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 02/02/2019 WENDIE MORENO DISPATCH CLERK Ot R90.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, UNSPECIFIED 02/02/2019 TIFFANIE WENDIE Monroy DISPATCH CLERK Ot W19.XXXA UNSPECIFIED FALL, INITIAL ENCOUNTER 02/02/2019 TIFFANIEZAIDN R DISPATCH CLERK Ot W22.09XA STRIKING AGAINST OTHER STATIONARY OBJECT 02/02/2019 TIFFANIEZAIDN R DISPATCH CLERK Ot Y92.[address] IN [facility] NON[facility] (PRIVATE 02/09/2019 TIFFANIEZAIDPreston Monryo DISPATCH CLERK Ot 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, 02/09/2019 TIFFANIE WENDIE Monroy DISPATCH CLERK Ot 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 02/09/2019 TIFFANIE WENDIE Monroy DISPATCH CLERK Ot 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.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, UNSPECIFIED 02/09/2019 WENDIE MORENO DISPATCH CLERK Ot W19.XXXA UNSPECIFIED FALL, INITIAL ENCOUNTER 02/09/2019 TIFFANIEZAIDPreston Monroy DISPATCH CLERK Ot W22.09XA STRIKING AGAINST OTHER STATIONARY OBJECT 02/09/2019 WENDIE MORENO DISPATCH CLERK Ot Y92.[address] IN [facility] NON[facility] (PRIVATE 02/24/2019 CHUCK HENRY Ot E78.5 HYPERLIPIDEMIA, UNSPECIFIED 02/24/2019 CHUCK HENRY Ot I10 ESSENTIAL (PRIMARY) HYPERTENSION 02/24/2019 CHUCK HENRY Ot I25.10 ATHSCL HEART DISEASE OF [place] CORONARY 02/24/2019 CHUCK HENRY Ot I44.7 LEFT BUNDLE-BRANCH BLOCK, UNSPECIFIED 02/24/2019 CHUCK HENRY Ot J44.9 CHRONIC OBSTRUCTIVE PULMONARY DISEASE, U 02/24/2019 CHUCK HENRY Ot R07.9 CHEST PAIN, UNSPECIFIED 03/13/2019 VINH MULLIGAN MD Ot E78.00 PURE HYPERCHOLESTEROLEMIA, UNSPECIFIED 03/13/2019 VINH MULLIGAN MD Ot E86.1 HYPOVOLEMIA 03/13/2019 VINH MULLIGAN MD Ot F41.9 ANXIETY DISORDER, UNSPECIFIED 03/13/2019 VINH MULLIGAN MD Ot I10 ESSENTIAL (PRIMARY) HYPERTENSION 03/13/2019 VINH MULLIGAN MD, Ot I25.10 ATHSCL HEART DISEASE OF [place] CORONARY 03/13/2019 VINH MULLIGAN MD, Ot J44.9 CHRONIC OBSTRUCTIVE PULMONARY DISEASE, U 03/13/2019 VINH MULLIGAN MD Ot K21.9 GASTRO-ESOPHAGEAL REFLUX DISEASE WITHOUT 03/13/2019 VINH MULLIGAN MD Ot K58.9 IRRITABLE BOWEL 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 03/13/2019 VINH MULLIGAN MD Ot R09.81 NASAL CONGESTION 03/13/2019 VINH MULLIGAN MD Ot R51 HEADACHE 03/13/2019 VINH MULLIGAN MD Ot R53.1 WEAKNESS 03/13/2019 VINH MULLIGAN MD, Ot Z79.82 MARINE INSULATOR (CURRENT) USE OF ASPIRIN 03/13/2019 VINH MULLIGAN MD Ot Z80.0 FAMILY HISTORY OF MALIGNANT NEOPLASM OF 03/13/2019 VINH MULLIGAN MD, Ot Z80.1 FAMILY HISTORY OF MALIG NEOPLASM OF TRAC 03/13/2019 VINH MULLIGAN MD, Ot Z80.42 FAMILY HISTORY OF MALIGNANT NEOPLASM OF 03/13/2019 VINH MULLIGAN MD Ot Z86.011 PERSONAL HISTORY OF BENIGN NEOPLASM OF T 03/13/2019 BRUEGGEMANN MD, VINH T Ot Z88.0 ALLERGY STATUS TO PENICILLIN 03/13/2019 VINH MULLIGAN MD Ot Z88.8 ALLERGY STATUS TO OTH DRUG/MEDS/BIOL SUB 03/15/2019 VINH MULLIGAN MD Ot E78.00 PURE HYPERCHOLESTEROLEMIA, UNSPECIFIED 03/15/2019 VINH MULLIGAN MD Ot E86.1 HYPOVOLEMIA 03/15/2019 VINH MULLIGAN MD Ot F41.9 ANXIETY DISORDER, UNSPECIFIED 03/15/2019 VINH MULLIGAN MD Ot I10 ESSENTIAL (PRIMARY) HYPERTENSION 03/15/2019 VINH MULLIGAN MD Ot I25.10 ATHSCL HEART DISEASE OF [place] CORONARY 03/15/2019 VINH MULLIGAN MD Ot J44.9 CHRONIC OBSTRUCTIVE PULMONARY DISEASE, U 03/15/2019 VINH MULLIGAN MD Ot K21.9 GASTRO-ESOPHAGEAL REFLUX DISEASE WITHOUT 03/15/2019 VINH MULLIGAN MD Ot K58.9 IRRITABLE BOWEL 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 03/15/2019 VINH MULLIGAN MD Ot R09.81 NASAL CONGESTION 03/15/2019 VINH MULLIGAN MD Ot R51 HEADACHE 03/15/2019 VINH MULLIGAN MD Ot R53.1 WEAKNESS 03/15/2019 VINH MULLIGAN MD Ot Z79.82 LONG-TERM (CURRENT) USE OF ASPIRIN 03/15/2019 VINH MULLIGAN MD Ot Z80.0 FAMILY HISTORY OF MALIGNANT NEOPLASM OF 03/15/2019 VINH MULLIGAN MD Ot Z80.1 FAMILY HISTORY OF MALIG NEOPLASM OF TRAC 03/15/2019 VINH MULLIGAN MD Ot Z80.42 FAMILY HISTORY OF MALIGNANT NEOPLASM OF 03/15/2019 VINH MULLIGAN MD Ot Z86.011 PERSONAL HISTORY OF BENIGN NEOPLASM OF T 03/15/2019 VINH MULLIGAN MD Ot Z88.0 ALLERGY STATUS TO PENICILLIN 03/15/2019 VINH MULLIGAN MD Ot Z88.8 ALLERGY STATUS TO OTH DRUG/MEDS/BIOL SUB 03/17/2019 CARISSA BROWNE MD Ot R05 COUGH 03/17/2019 CARISSA BROWNE MD Ot R06.0 2 SHORTNESS OF BREATH 03/20/2019 DONTA SANCHEZ, CHUCK K Ot E78.5 HYPERLIPIDEMIA, UNSPECIFIED 03/20/2019 DURANISI SANCHEZ, CHUCK K Ot I10 ESSENTIAL (PRIMARY) HYPERTENSION 03/20/2019 DONTA SANCHEZ, CHUCK K Ot I25.10 ATHSCL HEART DISEASE OF [place] CORONARY 03/20/2019 DONTA SANCHEZ, CHUCK K Ot I44.7 LEFT BUNDLE-BRANCH BLOCK, UNSPECIFIED 03/20/2019 DONTA SANCHEZ, CHUCK K Ot J44.9 CHRONIC OBSTRUCTIVE PULMONARY DISEASE, U 03/20/2019 DONTA SANCHEZ, CHUCK K Ot R07.9 CHEST PAIN, UNSPECIFIED 03/22/2019 DURANISI SANCHEZ, CHUCK K Ot E78.5 HYPERLIPIDEMIA, UNSPECIFIED 03/22/2019 DURAN-TIFFANIE SANCHEZ, CHUCK K Ot I10 ESSENTIAL (PRIMARY) HYPERTENSION 03/22/2019 DURANISI SANCHEZ, CHUCK K Ot I25.10 ATHSCL HEART DISEASE OF [place] CORONARY 03/22/2019 DURANISI SANCHEZ, CHUCK K Ot I44.7 LEFT BUNDLE-BRANCH BLOCK, UNSPECIFIED 03/22/2019 DURAN-TIFFANIE SANCHEZ, CHUCK K Ot J44.9 CHRONIC OBSTRUCTIVE PULMONARY DISEASE, U 03/22/2019 DONTA SANCHEZ, CHUCK K Ot R07.9 CHEST PAIN, UNSPECIFIED 04/06/2019 HOLLIE JONES, CARISSA Ruff Ot R05 COUGH 04/06/2019 CARISSA BROWNE MD Ot R06.0 2 SHORTNESS OF BREATH 06/12/2019 CEDRICK BLANC APRN Ot E78.00 PURE HYPERCHOLESTEROLEMIA, UNSPECIFIED 06/12/2019 CEDRICK BLANC APRN Ot F41 .9 ANXIETY DISORDER, UNSPECIFIED 06/12/2019 CEDRICK BLANC APRN Ot I10 ESSENTIAL (PRIMARY) HYPERTENSION 06/12/2019 CEDRICK BLANC APRN Ot I25.10 ATHSCL HEART DISEASE OF [place] CORONARY 06/12/2019 CEDRICK BLANC APRN Ot J44 .9 CHRONIC OBSTRUCTIVE PULMONARY DISEASE, U 06/12/2019 CEDRICK BLANC APRN Ot K21 .9 GASTRO-ESOPHAGEAL REFLUX DISEASE WITHOUT 06/12/2019 CEDRICK BLANC APRN Ot K58 .9 IRRITABLE BOWEL 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 06/12/2019 CEDRICK BLANC APRN Ot M54 .5 LOW BACK PAIN 06/12/2019 CEDRICK BLANC APRN Ot S32.029A UNSP FRACTURE OF SECOND LUMBAR VERTEBRA, 06/12/2019 CEDRICK BLANC APRN Ot S32.039A UNSP FRACTURE OF THIRD LUMBAR VERTEBRA, 06/12/2019 CEDRICK BLANC APRN Ot W19.XXXA UNSPECIFIED FALL, INITIAL ENCOUNTER 06/12/2019 CEDRICK BLANC APRN Ot Y92.[address] IN UNSP NON-INSTITUT (PRIVATE 06/12/2019 CEDRICK BLANC APRN Ot Z79.82 LONG-TERM (CURRENT) USE OF ASPIRIN 06/12/2019 CEDRICK BLANC APRN Ot Z80 .0 FAMILY HISTORY OF MALIGNANT NEOPLASM OF 06/12/2019 CEDRICK BLANC APRN Ot Z80 .1 FAMILY HISTORY OF MALIG NEOPLASM OF TRAC 06/12/2019 CEDRICK BLANC APRN Ot Z80.42 FAMILY HISTORY OF MALIGNANT NEOPLASM OF 06/12/2019 CEDRICK BLANC APRN Ot Z88 .0 ALLERGY STATUS TO PENICILLIN 06/12/2019 CEDRICK BLANC APRN Ot Z95 .5 PRESENCE OF CORONARY ANGIOPLASTY IMPLANT 07/11/2019 SOFY WOLF MD Ot E78.00 PURE HYPERCHOLESTEROLEMIA, UNSPECIFIED 07/11/2019 SOFY WOLF MD Ot E87.1 HYPO-OSMOLALITY AND HYPONATREMIA 07/11/2019 SOFY WOLF MD Ot F41.9 ANXIETY DISORDER, UNSPECIFIED 07/11/2019 SOFY WOLF MD Ot I10 ESSENTIAL (PRIMARY) HYPERTENSION 07/11/2019 SOFY WOLF MD Ot I25.10 ATHSCL HEART DISEASE OF [place] CORONARY 07/11/2019 SOFY WOLF MD Ot J44.9 CHRONIC OBSTRUCTIVE PULMONARY DISEASE, U 07/11/2019 SOFY WOLF MD Ot K21.9 GASTRO-ESOPHAGEAL REFLUX DISEASE WITHOUT 07/11/2019 SOFY WOLF MD Ot K58.9 IRRITABLE BOWEL 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 07/11/2019 SOFY WOLF MD Ot R53.1 WEAKNESS 07/11/2019 SOFY WOLF MD, Ot Z79.82 LONG-TERM (CURRENT) USE OF ASPIRIN 07/11/2019 SOFY WOLF MD, Ot Z80.0 FAMILY HISTORY OF MALIGNANT NEOPLASM OF 07/11/2019 SOFY WOLF MD, Ot Z80.1 FAMILY HISTORY OF MALIG NEOPLASM OF TRAC 07/11/2019 SOFY WOLF MD, Ot Z80.42 FAMILY HISTORY OF MALIGNANT NEOPLASM OF 07/11/2019 SOFY WOLF MD, Ot Z87.81 PERSONAL HISTORY OF (HEALED) TRAUMATIC F 07/11/2019 SOFY WOLF MD, Ot Z87.828 PERSONAL HISTORY OF OTH (HEALED) PHYSICA 07/11/2019 SOFY WOLF MD, Ot Z88.0 ALLERGY STATUS TO PENICILLIN 07/11/2019 SOFY WOLF MD, Ot Z88.8 ALLERGY STATUS TO OTH DRUG/MEDS/BIOL SUB 07/11/2019 SOFY WOLF MD Ot Z95.5 PRESENCE OF CORONARY ANGIOPLASTY IMPLANT 07/18/2019 SOFY WOLF MD Ot E78.00 PURE HYPERCHOLESTEROLEMIA, UNSPECIFIED 07/18/2019 SOFY WOLF MD Ot E87.1 HYPO-OSMOLALITY AND HYPONATREMIA 07/18/2019 SOFY WOLF MD, Ot F41.9 ANXIETY DISORDER, UNSPECIFIED 07/18/2019 SOFY WOLF MD Ot I10 ESSENTIAL (PRIMARY) HYPERTENSION 07/18/2019 SOFY WOLF MD, Ot I25.10 ATHSCL HEART DISEASE OF [place] CORONARY 07/18/2019 SOFY WOLF MD, Ot J44.9 CHRONIC OBSTRUCTIVE PULMONARY DISEASE, U 07/18/2019 SOFY WOLF MD, Ot K21.9 GASTRO-ESOPHAGEAL REFLUX DISEASE WITHOUT 07/18/2019 SOFY WOLF MD, Ot K58.9 IRRITABLE BOWEL 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 07/18/2019 SOFY WOLF MD, Ot R53.1 WEAKNESS 07/18/2019 SOFY WOLF MD, Ot Z79.82 MARINE INSULATOR (CURRENT) USE OF ASPIRIN 07/18/2019 SOFY WOLF MD, Ot Z80.0 FAMILY HISTORY OF MALIGNANT NEOPLASM OF 07/18/2019 SOFY WOLF MD, Ot Z80.1 FAMILY HISTORY OF MALIG NEOPLASM OF TRAC 07/18/2019 SOFY WOLF MD, Ot Z80.42 FAMILY HISTORY OF MALIGNANT NEOPLASM OF 07/18/2019 SOFY WOLF MD, Ot Z87.81 PERSONAL HISTORY OF (HEALED) TRAUMATIC F 07/18/2019 SOFY WOLF MD Ot Z87.828 PERSONAL HISTORY OF OTH (HEALED) PHYSICA 07/18/2019 SOFY WOLF MD, Ot Z88.0 ALLERGY STATUS TO PENICILLIN 07/18/2019 SOFY WOLF MD, Ot Z88.8 ALLERGY STATUS TO OTH DRUG/MEDS/BIOL SUB 07/18/2019 SOFY WOLF MD, Ot Z95.5 PRESENCE OF CORONARY ANGIOPLASTY IMPLANT 07/22/2019 SOFY WOLF MD Ot E78.00 PURE HYPERCHOLESTEROLEMIA, UNSPECIFIED 07/22/2019 SOFY WOLF MD Ot E87.1 HYPO-OSMOLALITY AND HYPONATREMIA 07/22/2019 SOFY WOLF MD Ot F41.9 ANXIETY DISORDER, UNSPECIFIED 07/22/2019 SOFY WOLF MD Ot I10 ESSENTIAL (PRIMARY) HYPERTENSION 07/22/2019 SOFY WOLF MD, Ot I25.10 ATHSCL HEART DISEASE OF [place] CORONARY 07/22/2019 SOFY WOLF MD, Ot J44.9 CHRONIC OBSTRUCTIVE PULMONARY DISEASE, U 07/22/2019 SOFY WOLF MD, Ot K21.9 GASTRO-ESOPHAGEAL REFLUX DISEASE WITHOUT 07/22/2019 SOFY WOLF MD, Ot K58.9 IRRITABLE BOWEL 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 07/22/2019 SOFY WOLF MD Ot R53.1 WEAKNESS 07/22/2019 SOFY WOLF MD, Ot Z79.82 LONG-TERM (CURRENT) USE OF ASPIRIN 07/22/2019 SOFY WOLF MD, Ot Z80.0 FAMILY HISTORY OF MALIGNANT NEOPLASM OF 07/22/2019 SOFY WOLF MD, Ot Z80.1 FAMILY HISTORY OF MALIG NEOPLASM OF TRAC 07/22/2019 SOFY WOLF MD, Ot Z80.42 FAMILY HISTORY OF MALIGNANT NEOPLASM OF 07/22/2019 SOFY WOLF MD, Ot Z87.81 PERSONAL HISTORY OF (HEALED) TRAUMATIC F 07/22/2019 SOFY WOLF MD Ot Z87.828 PERSONAL HISTORY OF OTH (HEALED) PHYSICA 07/22/2019 SOFY WOLF MD Ot Z88.0 ALLERGY STATUS TO PENICILLIN 07/22/2019 SOFY WOLF MD, Ot Z88.8 ALLERGY STATUS TO OTH DRUG/MEDS/BIOL SUB 07/22/2019 SOFY WOLF MD Ot Z95.5 PRESENCE OF CORONARY ANGIOPLASTY IMPLANT 08/05/2019 CARISSA BROWNE MD Ot I10 ESSENTIAL (PRIMARY) HYPERTENSION 08/05/2019 CARISSA BROWNE MD Ot I51.9 HEART DISEASE, UNSPECIFIED 08/05/2019 CARISSA BROWNE MD Ot J45.9 09 UNSPECIFIED ASTHMA, UNCOMPLICATED 08/05/2019 CARISSA BROWNE MD Ot M54.3 1 SCIATICA, RIGHT SIDE 08/05/2019 CARISSA BROWNE MD Ot R53.1 WEAKNESS 08/05/2019 CARISSA BROWNE MD Ot Z87.8 1 PERSONAL HISTORY OF (HEALED) TRAUMATIC F 08/24/2019 CARISSA BROWNE MD Ot 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 08/24/2019 CARISSA BROWNE MD Ot J45.9 09 UNSPECIFIED ASTHMA, UNCOMPLICATED 08/24/2019 CARISSA BROWNE MD Ot M54.3 1 SCIATICA, RIGHT SIDE 08/24/2019 CARISSA BROWNE MD Ot R53.1 WEAKNESS 08/24/2019 CARISSA BROWNE MD Ot Z87.8 1 PERSONAL HISTORY OF (HEALED) TRAUMATIC F 09/08/2019 CARISSA BROWNE MD Ot 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 09/08/2019 CARISSA BROWNE MD Ot J45.9 09 UNSPECIFIED ASTHMA, UNCOMPLICATED 09/08/2019 CARISSA BROWNE MD Ot M54.3 1 SCIATICA, RIGHT SIDE 09/08/2019 CARISSA BROWNE MD Ot R53.1 WEAKNESS 09/08/2019 CARISSA BROWNE MD Ot Z87.8 1 PERSONAL HISTORY OF (HEALED) TRAUMATIC F 09/28/2019 CARISSA BROWNE MD Ot 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 09/28/2019 CARISSA BROWNE MD Ot J45.9 09 UNSPECIFIED ASTHMA, UNCOMPLICATED 09/28/2019 CARISSA BROWNE MD Ot M54.3 1 SCIATICA, RIGHT SIDE 09/28/2019 HOLLIE JONES, CARISSA Ruff Ot R53.1 WEAKNESS 09/28/2019 CARISSA BROWNE MD Ot Z87.8 1 PERSONAL HISTORY OF (HEALED) TRAUMATIC F 11/05/2019 [facility], CHUCK K Ot I08.1 RHEUMATIC DISORDERS OF BOTH MITRAL AND T 11/05/2019 [facility] PA, CHUCK K Ot I10 ESSENTIAL (PRIMARY) HYPERTENSION 11/05/2019 [facility] PA, CHUCK K Ot I25.10 ATHSCL HEART DISEASE OF [place] CORONARY 11/05/2019 [facility] PA, CHUCK K Ot I27.20 PULMONARY HYPERTENSION, UNSPECIFIED 11/05/2019 [facility] PA, CHUCK K Ot I44.7 LEFT BUNDLE-BRANCH BLOCK, UNSPECIFIED 11/07/2019 [facility] PA, CHUCK K Ot I08.1 RHEUMATIC DISORDERS OF BOTH MITRAL AND T 11/07/2019 [facility] PA, CHUCK K Ot I10 ESSENTIAL (PRIMARY) HYPERTENSION 11/07/2019 [facility] PA, CHUCK K Ot I25.10 ATHSCL HEART DISEASE OF [place] CORONARY 11/07/2019 [facility] PA, CHUCK K Ot I27.20 PULMONARY HYPERTENSION, UNSPECIFIED 11/07/2019 [facility] PA, CHUCK K Ot I44.7 LEFT BUNDLE-BRANCH BLOCK, UNSPECIFIED 11/08/2019 [facility] PA, CHUCK K Ot I08.1 RHEUMATIC DISORDERS OF BOTH MITRAL AND T 11/08/2019 [facility] PA, CHUCK K Ot I10 ESSENTIAL (PRIMARY) HYPERTENSION 11/08/2019 [facility] PA, CHUCK K Ot I25.10 ATHSCL HEART DISEASE OF [place] CORONARY 11/08/2019 [facility] PA, CHUCK K Ot I27.20 PULMONARY HYPERTENSION, UNSPECIFIED 11/08/2019 [facility] PA, CHUCK K Ot I44.7 LEFT BUNDLE-BRANCH BLOCK, UNSPECIFIED 11/28/2019 [facility] PA, CHUCK K Ot I08.1 RHEUMATIC DISORDERS OF BOTH MITRAL AND T 11/28/2019 [facility] PA, CHUCK K Ot I10 ESSENTIAL (PRIMARY) HYPERTENSION 11/28/2019 [facility] PA, CHUCK K Ot I25.10 ATHSCL HEART DISEASE OF [place] CORONARY 11/28/2019 DONTA SANCHEZ, CHUCK Montes Ot I27.20 PULMONARY HYPERTENSION, UNSPECIFIED 11/28/2019 DONTA SANCHEZ, CHUCK Montes Ot I44.7 LEFT BUNDLE-BRANCH BLOCK, UNSPECIFIED 12/01/2019 DONTA SANCHEZ, CHUCK Montes Ot I08.1 RHEUMATIC DISORDERS OF BOTH MITRAL AND T 12/01/2019 DONTA SANCHEZ, CHUCK Montes Ot I10 ESSENTIAL (PRIMARY) HYPERTENSION 12/01/2019 DONTA SANCHEZ, CHUCK Montes Ot I25.10 ATHSCL HEART DISEASE OF [place] CORONARY 12/01/2019 DONAT SANCHEZ, CHUCK Montes Ot I27.20 PULMONARY HYPERTENSION, UNSPECIFIED 12/01/2019 DONTA SANCHEZ, CHUCK Montes Ot I44.7 LEFT BUNDLE-BRANCH BLOCK, UNSPECIFIED Procedures There is no data. Results Test Result Range Complete blood count (CBC) with automate d white blood cell (WBC) differential - 03/13/19 10:15 Blood leukocytes automated count (number/volume) 6.9 10*3/uL 4.3-11.0 Blood erythrocytes automated count (number/volume) 3.82 10*6/uL 4.35-5.85 Venous blood hemoglobin measurement (mass/volume) 11.4 g/dL 11.5-16.0 Blood hematocrit (volume fraction) 33 % 35-52 Automated erythrocyte mean corpuscular volume 87 [ foz_us] 80-99 Automated erythrocyte mean corpuscular h emoglobin (mass per erythrocyte) 30 pg 25-34 Automated erythrocyte mean corpuscular h emoglobin concentration measurement (mass/volume) 34 g/dL 32-36 Automated erythrocyte distribution width ratio 13. 8 % 10.0- 14.5 Automated blood platelet count (count/volume) 337 10*3/uL 130-400 Automated blood platelet mean volume measurement 8.7 [foz_us] 7.4-10.4 Automated blood neutrophils/100 leukocytes 69 % 42-75 Automated blood lymphocytes/100 leukocytes 17 % 12-44 Blood monocytes/100 leukocytes 14 % 0-12 Automated blood eosinophils/100 leukocytes 0 % 0-10 Automated blood basophils/100 leukocytes 0 % 0-10 Blood neutrophils automated count (number/volume) 4.8 10*3 1.8-7.8 Blood lymphocytes automated count (number/volume) 1.2 10*3 1.0-4.0 Blood monocytes automated count (number/volume) 0. 9 10*3 0.0-1.0 Automated eosinophil count 0.0 10*3/uL 0 .0-0.3 Automated blood basophil count (count/volume) 0.0 10*3/uL 0.0-0.1 Comprehensive metabolic panel - 03/13/19 10:15 Serum or plasma sodium measurement (moles/volume) 133 mmol/L 135-145 Serum or plasma potassium measurement (moles/volume) 4.1 mmol/L 3.6-5.0 Serum or plasma chloride measurement (moles/volume) 103 mmol/L 98-107 Carbon dioxide 23 mmol/L 21-32 Serum or plasma anion gap determination (moles/volume) 7 mmol/L 5-14 Serum or plasma urea nitrogen measurement (mass/volume ) 18 mg/dL 7-18 Serum or plasma creatinine measurement (mass/volume) 1.05 mg/dL 0.60-1.30 Serum or plasma urea nitrogen/creatinine mass ratio 17 NRG Serum or plasma creatinine measurement w ith calculation of estimated glomerular filtration rate 50 NRG Serum or plasma glucose measurement (mass/volume) 110 mg/dL 70-105 Serum or plasma calcium measurement (mass/volume) 9.1 mg/dL 8.5-10.1 Serum or plasma total bilirubin measurement (mass/volu me) 0.6 mg/dL 0.1-1.0 Serum or plasma alkaline phosphatase jodi surement (enzymatic activity/volume) 42 U/L 40-136 Serum or plasma aspartate aminotransfera se measurement (enzymatic activity/volume) 13 U/L 5-34 Serum or plasma alanine aminotransferase measurement (enzymatic activity/volume) 11 U/L 0-55 Serum or plasma protein measurement (mass/volume) 6.0 g/dL 6.4-8.2 Serum or plasma albumin measurement (mass/volume) 3.7 g/dL 3.2-4.5 CALCIUM CORRECTED 9.3 mg/dL 8.5-10.1 Magnesium - 03/13/19 10:15 Magnesium 1.8 mg/dL 1.8-2.4 Serum or plasma thyroxine (T4) free shannan urement (mass/volume) - 03/13/19 10:15 Serum or plasma thyroxine (T4) free measurement (mass/ volume) 1.33 ng/dL 0.70-1.48 Serum or plasma thyrotropin measurement by detection limit <=0.05 miu/l (units/volume) - 03/13/19 10:15 Serum or plasma thyrotropin measurement by detection limit <=0.05 miu/l (units/volume) 0.24 u[iU]/mL 0.35-4.94 Serum or plasma C reactive protein measu rement (mass/volume) - 03/13/19 10:15 Serum or plasma C reactive protein measurement (mass/v olume) 0.07 mg/dL 0.00-0.50 Complete urinalysis with reflex to cultu re - 03/13/19 11:09 Urine color determination YELLOW NRG Urine clarity determination CLEAR NR G Urine pH measurement by test strip 7 5-9 Specific gravity of urine by test strip 1.010 1.016-1.022 Urine protein assay by test strip, semi-quantitative NEGATIVE NEGATIVE Urine glucose detection by automated test strip NE GATIVE NEGATIVE Erythrocytes detection in urine sediment by light micr oscopy NEGATIVE NEGATIVE Urine ketones detection by automated test strip NE GATIVE NEGATIVE Urine nitrite detection by test strip NEGATIVE NEGATIVE Urine total bilirubin detection by test strip NEGA TIVE NEGATIVE Urine urobilinogen measurement by automated test strip (mass/volume) NORMAL NORMAL Urine leukocyte esterase detection by dipstick 1+ NEGATIVE Automated urine sediment erythrocyte cou nt by microscopy (number/high power field) RARE NRG Automated urine sediment leukocyte count by microscopy (number/high power field) [HPF] NRG Bacteria detection in urine sediment by light microsco py FEW NRG Squamous epithelial cells detection in u rine sediment by light microscopy 2-5 NRG Crystals detection in urine sediment by light microsco py NONE NRG Casts detection in urine sediment by light microscopy NONE NRG Mucus detection in urine sediment by light microscopy NEGATIVE NRG Complete urinalysis with reflex to culture YES NRG Bacterial urine culture - 03/13/19 11:09 Bacterial urine culture [id number] NRG COLONY COUNT <10,000 NRG Complete blood count (CBC) with automate d white blood cell (WBC) differential - 07/11/19 14:28 Blood leukocytes automated count (number/volume) 5.1 10*3/uL 4.3-11.0 Blood erythrocytes automated count (number/volume) 3.65 10*6/uL 4.35-5.85 Venous blood hemoglobin measurement (mass/volume) 11.0 g/dL 11.5-16.0 Blood hematocrit (volume fraction) 32 % 35-52 Automated erythrocyte mean corpuscular volume 88 [ foz_us] 80-99 Automated erythrocyte mean corpuscular h emoglobin (mass per erythrocyte) 30 pg 25-34 Automated erythrocyte mean corpuscular h emoglobin concentration measurement (mass/volume) 34 g/dL 32-36 Automated erythrocyte distribution width ratio 12. 6 % 10.0- 14.5 Automated blood platelet count (count/volume) 268 10*3/uL 130-400 Automated blood platelet mean volume measurement 8.1 [foz_us] 7.4-10.4 Automated blood neutrophils/100 leukocytes 61 % 42-75 Automated blood lymphocytes/100 leukocytes 19 % 12-44 Blood monocytes/100 leukocytes 14 % 0-12 Automated blood eosinophils/100 leukocytes 5 % 0-10 Automated blood basophils/100 leukocytes 1 % 0-10 Blood neutrophils automated count (number/volume) 3.1 10*3 1.8-7.8 Blood lymphocytes automated count (number/volume) 1.0 10*3 1.0-4.0 Blood monocytes automated count (number/volume) 0. 7 10*3 0.0-1.0 Automated eosinophil count 0.2 10*3/uL 0 .0-0.3 Automated blood basophil count (count/volume) 0.1 10*3/uL 0.0-0.1 Comprehensive metabolic panel - 07/11/19 14:28 Serum or plasma sodium measurement (moles/volume) 129 mmol/L 135-145 Serum or plasma potassium measurement (moles/volume) 4.0 mmol/L 3.6-5.0 Serum or plasma chloride measurement (moles/volume) 98 mmol/L 98-107 Carbon dioxide 22 mmol/L 21-32 Serum or plasma anion gap determination (moles/volume) 9 mmol/L 5-14 Serum or plasma urea nitrogen measurement (mass/volume ) 13 mg/dL 7-18 Serum or plasma creatinine measurement (mass/volume) 0.95 mg/dL 0.60-1.30 Serum or plasma urea nitrogen/creatinine mass ratio 14 NRG Serum or plasma creatinine measurement w ith calculation of estimated glomerular filtration rate 56 NRG Serum or plasma glucose measurement (mass/volume) 96 mg/dL 70-105 Serum or plasma calcium measurement (mass/volume) 8.4 mg/dL 8.5-10.1 Serum or plasma total bilirubin measurement (mass/volu me) 0.3 mg/dL 0.1-1.0 Serum or plasma alkaline phosphatase jodi surement (enzymatic activity/volume) 38 U/L 40-136 Serum or plasma aspartate aminotransfera se measurement (enzymatic activity/volume) 16 U/L 5-34 Serum or plasma alanine aminotransferase measurement (enzymatic activity/volume) 12 U/L 0-55 Serum or plasma protein measurement (mass/volume) 5.9 g/dL 6.4-8.2 Serum or plasma albumin measurement (mass/volume) 3.7 g/dL 3.2-4.5 CALCIUM CORRECTED 8.6 mg/dL 8.5-10.1 Magnesium - 07/11/19 14:28 Magnesium 1.7 mg/dL 1.6-2.4 Serum or plasma troponin i.cardiac measu rement (mass/volume) - 07/11/19 14:28 Serum or plasma troponin i.cardiac measurement (mass/v olume) < ng/mL <0.028 Serum or plasma thyrotropin measurement by detection limit <=0.05 miu/l (units/volume) - 07/11/19 14:28 Serum or plasma thyrotropin measurement by detection limit <=0.05 miu/l (units/volume) 0.53 u[iU]/mL 0.35-4.94 Serum or plasma C reactive protein measu rement (mass/volume) - 07/11/19 14:28 Serum or plasma C reactive protein measurement (mass/v olume) 0.04 mg/dL 0.00-0.50 Complete urinalysis with reflex to cultu re - 07/11/19 14:35 Urine color determination YELLOW NRG Urine clarity determination CLEAR NR G Urine pH measurement by test strip 6 5-9 Specific gravity of urine by test strip 1.010 1.016-1.022 Urine protein assay by test strip, semi-quantitative NEGATIVE NEGATIVE Urine glucose detection by automated test strip NE GATIVE NEGATIVE Erythrocytes detection in urine sediment by light micr oscopy NEGATIVE NEGATIVE Urine ketones detection by automated test strip NE GATIVE NEGATIVE Urine nitrite detection by test strip NEGATIVE NEGATIVE Urine total bilirubin detection by test strip NEGA TIVE NEGATIVE Urine urobilinogen measurement by automated test strip (mass/volume) NORMAL NORMAL Urine leukocyte esterase detection by dipstick NEG ATIVE NEGATIVE Automated urine sediment erythrocyte cou nt by microscopy (number/high power field) RARE NRG Automated urine sediment leukocyte count by microscopy (number/high power field) NONE NRG Bacteria detection in urine sediment by light microsco py NEGATIVE NRG Squamous epithelial cells detection in u rine sediment by light microscopy 0-2 NRG Crystals detection in urine sediment by light microsco py NONE NRG Casts detection in urine sediment by light microscopy NONE NRG Mucus detection in urine sediment by light microscopy NEGATIVE NRG Complete urinalysis with reflex to culture NO NRG Encounters ACCT No. Visit Date/Time Discharge Status Pt. Type Provider Facility Loc./Unit Complaint [id number] 11/02/2019 10:11:00 23:59:59 CLS Outpatient DURAN-UMA SABILLON [facility] CARD CAD,HTN [id number] 09/28/2019 10:27:00 11:12:00 DIS Outpatient CARISSA BROWNE MD [facility] REHAB GENERAL WEAKNESS;R SCIATICA;DEBILITY [id number] 07/11/2019 13:37:00 17:02:00 DIS Emergency SOFY WOLF MD [facility] ER BILAT LEG WEAKN ESS [id number] 06/09/2019 19:07:00 21:28:00 DIS Outpatient CEDRICK BLANC DISPATCH CLERK [facility] ER FALL,BACK PAIN [id number] 03/15/2019 09:18:00 23:59:59 CLS Outpatient CARISSA BROWNE MD [facility] RAD COUGH,DYSPNEA [id number] 03/13/2019 09:28:00 12:50:00 DIS Emergency ESE JONES, VINH Tolbert [facility] ER SINUS INFECTION [id number] 02/22/2019 07:18:00 23:59:59 CLS Outpatient UMA HENRY [facility] CARD CAD, CHEST PAIN, COPD [id number] 01/24/2019 14:12:00 23:59:59 CLS Preadmit WENDIE MORENO APRN [facility] REHAB BACK PAIN [id number] 01/12/2019 15:51:00 23:59:59 CLS Outpatient WENDIE MORENO APRN [facility] RAD FALL AT HOME,HI T HEAD,DIZZINESS [id number] 06/02/2018 11:12:00 018 23:59:59 CLS Preadmit CHUCK HENRY [facility] CARD CAD [id number] 06/02/2018 11:10:00 23:59:59 CLS Preadmit CHUCK HENRY [facility] CARD CAD [id number] 08/10/2017 08:39:00 017 23:59:59 CLS Outpatient CARISSA BROWNE MD [facility] RAD SCREENING [id number] 08/26/2016 07:07:00 23:59:59 CLS Outpatient UMA HENRY [facility] CARD CAD [id number] 08/04/2016 09:33:00 23:59:59 CLS Outpatient WENDIE MORENO APRN [facility] RAD SCREENING [id number] 01/24/2016 12:22:00 23:59:59 CLS Outpatient UMA HENRY [facility] CARD CAD,HLD,LBB B [id number] 08/15/2015 20:45:00 06:40:00 DIS Outpatient MINO BARRIENTOS APRN [facility] SLEEP SNORING,CHOKING [id number] 07/16/2015 08:35:00 23:59:59 CLS Outpatient CARISSA BROWNE MD [facility] RAD SCREENING [id number] 06/20/2015 20:45:00 06:55:00 DIS Outpatient YOLANDA SERNA DO [facility] SLEEP SNORING CHOKING/GASPING ISCHEMIC HEART DISEASE HTN [id number] 06/16/2015 02:50:00 13:40:00 DIS Inpatient HECTOR WALKER MD [facility] CSD CHEST PAIN [id number] 05/08/2015 11:03:00 015 23:59:59 CLS Outpatient CARISSA BROWNE MD [facility] RAD COUGH COPD DYSPNEA [id number] 04/30/2015 12:06:00 23:59:59 CLS Outpatient WENDIE MORENO APRN [facility] RAD COUGH,FEVER [id number] 04/24/2015 06:59:00 23:59:59 CLS Outpatient CARISSA BROWNE MD [facility] RT DYSPNEA COPD [id number] 04/11/2015 14:38:00 015 23:59:59 CLS Outpatient CARISSA BROWNE MD [facility] RAD DYSPNEA,COPD [id number] 04/03/2015 07:52:00 015 15:45:00 DIS Outpatient HECTOR WALKER MD [facility] CATH CP SOB CAD COPD HLP HTN [id number] 03/25/2015 13:54:00 015 11:45:00 DIS Inpatient HECTOR WALKER MD [facility] CSD CHEST PAIN [id number] 02/14/2015 09:22:00 015 23:59:59 CLS Outpatient KEY BRYANT [facility] QUICK [id number] 10/15/2014 07:16:00 015 23:59:59 CLS Outpatient HECTOR WALKER MD [facility] CARD CAD,CP,HTN [id number] 03/21/2014 09:54:00 014 23:59:59 CLS Outpatient [id number] 02/22/2014 09:36:00 23:59:59 CLS Outpatient DONTA SANCHEZ, UMA Montes [facility] CARD CAD,COPD,HT N [id number] 10/12/2013 08:39:00 00:01:00 DIS Outpatient CARISSA BROWNE MD [facility] CARD PALPITATIONS [id number] 06/07/2013 06:27:00 14:15:00 DIS Outpatient AARON JONES, HECTOR Dukes [facility] CATH CAD,ABNORMAL STRESS,SENIOR ARCHITECT/DESIGN MANAGER D,CP,LBBB [id number] 05/29/2013 12:42:00 23:59:59 CLS Outpatient CARISSA BROWNE MD [facility] [facility] RAD ABN MAMMO [id number] 05/16/2013 09:39:00 23:59:59 CLS Outpatient CARISSA BROWNE MD Via [facility] RAD SCREENING [id number] 05/29/2014 11:40:00 Document Registration [id number] 12/27/2012 11:33:00 Document Registration [id number] 12/21/2012 07:27:00 Document Registration [id number] 05/11/2012 12:25:00 Document Registration [id number] 04/27/2011 07:30:00 Document Registration [id number] 11/26/2010 05:38:00 Document Registration [id number] 10/27/2010 08:48:00 Document Registration [id number] 04/15/2010 13:31:00 Document Registration [id number] 04/03/2010 13:00:00 Document Registration [id number] 11/05/2009 10:31:00 Document Registration [id number] 10/30/2009 11:00:00 Document Registration [id number] 10/25/2009 08:00:00 Document Registration [id number] 06/17/2009 06:21:00 Document Registration
--- NOTE | 2020-01-28 12:08 | ED Head Injury ---
General Stated Complaint: FALL - HEAD PAIN Source: patient Exam Limitations: no limitations History of Present Illness Date Seen by Provider: January 28, 2020 Time Seen by Provider: 12:08 Initial Comments To ER by EMS from home with reports of a fall. She was carrying groceries up the step when she fell backwards striking back of her head on the concrete sidewalk. No LOC. No anticoagulant or antiplatelet use. Does have nausea but no vomiting. Has been having difficulty with balance for many months she states. Occurred: just prior to arrival Severity: moderate Location: occipital Method of Injury: fell Loss of Consciousness: no loss of consciousness Associated Systoms: Headaches, Nausea/Vomiting (nausea but no vomiting) Allergies and Home Medications Allergies Coded Allergies: Penicillins (Unverified Allergy, Intermediate, RASH, 07/29/06) clopidogrel (Verified Allergy, Mild, ITCHING, 04/03/15) Home Medications Acetaminophen 500 Mg Tab, 1,000 MG PO Q6H PRN for PAIN, (Reported) Albuterol Sulfate 8.5 Gm Aer.w.adap, 2 PUFF IH Q4H PRN for SHORTNESS OF BREATH, (Reported) Alprazolam 0.25 Mg Tablet, 0.25 MG PO Q8H PRN for ANXIETY, (Reported) Aspirin 325 Mg Tabec, 325 MG PO DAILY, (Reported) Budesonide/Formoterol Fumarate 1 Inhaler Aero, 2 PUFF INH BID PRN for SHORTNESS OF BREATH, (Reported) Cetirizine HCl 10 Mg Tab.chew, 10 MG PO DAILY, (Reported) Hydrocodone/Acetaminophen 1 Each Tablet, 1 TAB PO Q6H Prescribed by: CEDRICK BLANC on 06/09/192104 Levofloxacin 750 Mg Tablet, 750 MG PO DAILY, (Reported) Losartan Potassium 50 Mg Tablet, 50 MG PO DAILY, (Reported) Metoprolol Succinate 50 Mg Tab.sr.24h, 50 MG PO DAILY, (Reported) Montelukast Sodium 10 Mg Tablet, 10 MG PO HS, (Reported) Nitroglycerin 0.4 Mg Subl, 0.4 MG SL UD PRN for CHEST PAIN, (Reported) [place] 3 Polyunsat Fatty Acids 1,000 Mg Cap, 3,000 MG PO DAILY, (Reported) Pantoprazole Sod 40 Mg Tab, 40 MG PO DAILY, (Reported) Ranolazine 500 Mg Tab.sr.12h, 500 MG PO BID, (Reported) Rosuvastatin Calcium 10 Mg Tab, 10 MG PO HS, (Reported) Sertraline HCl 100 Mg Tablet, 100 MG PO DAILY, (Reported) Tiotropium [place] 4 Gm Mist.inhal, 1 CAP INH DAILY PRN for SHORTNESS OF BREATH, (Reported) Patient Home Medication List Home Medication List Reviewed: Yes Review of Systems Review of Systems Constitutional: see HPI Eyes: No Symptoms Reported Ears, Nose, Mouth, Throat: no symptoms reported Respiratory: no symptoms reported Cardiovascular: no symptoms reported Genitourinary: no symptoms reported Musculoskeletal: no symptoms reported Skin: no symptoms reported Psychiatric/Neurological: See HPI, Headache Endocrine: No Symptoms Reported Hematologic/Lymphatic: No Symptoms Reported Past Pmxpgkg-Wwapgv-Hotmwe Hx Patient Social History Alcohol Beverage of Choice: Wine 2nd Hand Smoke Exposure: No Recent Foreign Travel: No Contact w/Someone Who Travel: No Recent Hopitalizations: Yes Immunizations Up To Date Tetanus Booster (TDap): More than 5yrs PED Vaccines UTD: Yes Date of Pneumonia Vaccine: Jun 07, 2013 Date of Influenza Vaccine: May 20, 2015 Past Medical History Surgeries: Yes (STENT X1, HEMMROIDECTOMY, PARATHYROID, carpal tunnel ) Coronary Stent, Orthopedic Respiratory: Yes (COPD) Asthma, COPD Currently Using CPAP: No Currently Using BIPAP: No Cardiac: Yes (STENT - 2009) Coronary Artery Disease, High Cholesterol, Hypertension Neurological: No Reproductive Disorders: No Sexually Transmitted Disease: No HIV/AIDS: No Genitourinary: No Gastrointestinal: Yes Gastroesophageal Reflux, Hemorrhoids, Polyps, Gall Bladder Disease, Irritable Bowel Musculoskeletal: Yes Arthritis Endocrine: No Cataract Loss of Vision: Denies Hearing Impairment: Denies Cancer: No Psychosocial: Yes Anxiety Integumentary: Yes (EXTREMELY DRY SKIN ) Blood Disorders: No Adverse Reaction/Blood Tranf: No (NEVER HAD BLOOD TRANSFUSION ) Family Medical History Colon cancer 19 MOTHER FH: emphysema 19 FATHER FH: lung cancer G8 BROTHER Prostate cancer G8 BROTHER Physical Exam Vital Signs Vital Signs - First Documented 01/28/20 12:00 Temp 36.8 Pulse 68 Resp 18 B/P (MAP) 186/90 (122) Pulse Ox 100 Capillary Refill : Height, Weight, BMI Height: 5'4.00" Weight: 125lbs. 0.0oz. 56.260346cl; 21.00 BMI Method:Stated General Appearance: WD/WN, no apparent distress HEENT: PERRL/EOMI, normal ENT inspection, other (large occipital hematoma with small abrasion, no lacerations; Tetanus up to date. ) Respiratory: no respiratory distress, no accessory muscle use Gastrointestinal: normal bowel sounds, non tender, soft Psychiatric: alert, oriented x 3 Cra[place] Nerves: normal hearing, normal speech, PERRL Motor/Sensory: no motor deficit, no sensory deficit Skin: normal color, warm/dry Estelle Coma Score Best Eye Response: (4) Open Spontaneously Best Verbal Response: (5) Oriented Best Motor Response: (6) Obeys Commands [place] Total: 15 Progress/Results/Core Measures Results/Orders My Orders Orders - CEDRICK BLANC APRN Ct Head/Cervical Spine Wo (01/28/20 12:05) Ondansetron Oral Dissolve Tab (Zofran (01/28/20 12:15) Ribs/Unilateral With Chest (01/28/20 12:08) Medications Given in ED Current Medications Medications Dose Ordered Sig/Kendra Route Start Time Stop Time Status Last Admin Dose Admin Ondansetron HCl 4 mg ONCE ONCE PO 01/28/20 12:15 01/28/20 12:16 DC 01/28/20 12:18 4 MG Vital Signs/I&O 01/28/20 12:00 Temp 36.8 Pulse 68 Resp 18 B/P (MAP) 186/90 (122) Pulse Ox 100 Departure Impression Primary Impression: Scalp contusion Qualified Codes: S00.03XA - Contusion of scalp, initial encounter Additional Impression: Concussion Qualified Codes: S06.0X0A - Concussion without loss of consciousness, initial encounter Disposition: 01 HOME, SELF-CARE Condition: Stable Departure-Patient Inst. Decision time for Depature: 12:41 Referrals: CARISSA BROWNE MD (PCP/Family) Primary Care Physician Patient Instructions: Concussion in Adults, HEMATOMA Add. Discharge Instructions: 1. Return to ER for any uncontrollable vomiting, intolerable headache. He can take Tylenol for headaches. Nausea medication for nausea. Follow-up with parul zuniga later this week for recheck. Nausea, headache, dizziness may stick around for several days as a part of the concussion. Scripts Ondansetron (Ondansetron Odt) 4 Mg Tab.rapdis 4 MG PO Q6H PRN for NAUSEA/VOMITING, #10 TAB Prov: CEDRICK BLANC APRN 01/28/20 CEDRICK BLANC APRN January 28, 2020 12:08
[2020-01-28] MEDS ORDERED: ONDANSETRON 4 MG (ZOFRAN) ORAL DISSOLVE TAB PO ONE (12:15)
--- NOTE | 2020-01-28 12:38 | Diagnostic Imaging Report ---
Indication: Right rib injury. Comparison: 07/11/2019 Findings: Single view of the chest, multiple views of the right ribs demonstrate no fracture or osseous lesion. The lungs are clear. There is no pneumothorax. Heart is normal. Impression: Negative chest and right rib series. Dictated by: Dictated on workstation # [id number]
[2020-01-28] MEDS ORDERED: ONDA4TAB11 PO (12:44)
--- NOTE | 2020-01-28 12:47 | Diagnostic Imaging Report ---
PROCEDURE: CT head and CT cervical spine without contrast. TECHNIQUE: Multiple contiguous axial images were obtained through the brain and cervical spine without the use of intravenous contrast. Sagittal and coronal reformations through the cervical spine were then performed. Auto Exposure Controls were utilized during the CT exam to meet ALARA standards for radiation dose reduction. INDICATION: Fell, head and neck pain. CT HEAD: This study is less than optimal due to streak artifact. The previous CT head exam 06/09/2019 failed to show any sign of an acute intracranial abnormality. On this study there is now a sizable 1.8 x 4.4 cm hematoma along the posterior aspect of the parietal bones near the vertex of the skull. The bone windows show no evidence for a skull fracture. There is no acute intracranial abnormality identified. There is no mass, shift to the midline or hemorrhage. The ventricles are prominent but stable in size and compared to the prior exam. The senescent changes seen previously including cortical atrophy and periventricular encephalomalacia are again evident and no different. The orbits and sinuses were not visualized in their entirety. Where visualized there is no acute abnormality. IMPRESSION: 1. In the interval since the prior exam a sizable area of hematoma formation has developed along the posterior aspect of the parietal bones near the vertex of the skull. There is no sign evidence for a skull fracture, nor is there any sign of an acute intracranial abnormality. 2. If the patient is anticoagulated and if her symptoms persist, then a short-term (24 hour) followup CT head exam would be recommended for further study. These results were discussed with Shiva Rosas APRN. 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 There is no high-grade central stenosis identified but there is severe narrowing of the neural foramen on the left at C5-C6 due to bony overgrowth. There is also neural foraminal narrowing on the right at C4-C5. There is no fracture or acute bony abnormality appreciated. The lung apices are clear. The thyroid gland is obscured by streak artifact and difficult to assess. There is no evidence for retropharyngeal edema. IMPRESSION: There is no evidence for an acute bony abnormality of the cervical spine. Dictated by: Dictated on workstation # [id number]
[2020-01-28 12:55] VITALS: BP 186/90
== END 2020-01-28 12:55 | disposition home or self-care (01) ==
LOC: EDUNIT# 11:59 → ER 12:00
DX: S06.0X0A Concussion without loss of consciousness, initial encounter (principal); S00.03XA Contusion of scalp, initial encounter; J44.9 Chronic obstructive pulmonary disease, unspecified; I10 Essential (primary) hypertension; E78.00 Pure hypercholesterolemia, unspecified; I25.10 Atherosclerotic heart disease of native coronary artery without angina pectoris; K21.9 Gastro-esophageal reflux disease without esophagitis; F41.9 Anxiety disorder, unspecified; R40.2142 Coma scale, eyes open, spontaneous, at arrival to emergency department; R40.2252 Coma scale, best verbal response, oriented, at arrival to emergency department; R40.2362 Coma scale, best motor response, obeys commands, at arrival to emergency department; Z86.010 Personal history of colon polyps; Z88.0 Allergy status to penicillin; Z88.8 Allergy status to other drugs, medicaments and biological substances; Z79.82 Long term (current) use of aspirin; Z95.5 Presence of coronary angioplasty implant and graft; Z80.0 Family history of malignant neoplasm of digestive organs; Z80.1 Family history of malignant neoplasm of trachea, bronchus and lung; Z80.42 Family history of malignant neoplasm of prostate; W10.1XXA Fall (on)(from) sidewalk curb, initial encounter; W22.8XXA Striking against or struck by other objects, initial encounter; Y92.009 Unspecified place in unspecified non-institutional (private) residence as the place of occurrence of the external cause
CPT/HCPCS: 70450; 71101; 72125

== ENCOUNTER 2020-03-22 02:48 | Emergency (ER) | payer MEDICARE ==
[~2020-03-22] VITALS: Ht 160 cm; Wt 54.5 kg
[~2020-03-22 02:48] MED LIST changes: +ONDA4TAB11 PO
--- NOTE | 2020-03-22 03:12 | NUR ---
COVID SWAB SENT TO LAB
--- NOTE | 2020-03-22 03:15 | NUR ---
PT INFORMED OF ANTICIPATED WAIT TIMES FOR LAB RESULTS.
[2020-03-22 03:26] LABS: BASOPHILS # (AUTO) 0.1 10^3/uL (0.0-0.1); BASOPHILS % (AUTO) 1 % (0-10); EOSINOPHILS # (AUTO) 0.2 10^3/uL (0.0-0.3); EOSINOPHILS % (AUTO) 4 % (0-10); HEMATOCRIT 37 % (35-52); HEMOGLOBIN 12.6 G/DL (11.5-16.0); LYMPHOCYTES # (AUTO) 1.2 X 10^3 (1.0-4.0); LYMPHOCYTES % (AUTO) 25 % (12-44); MEAN CORPUSCULAR HEMOGLOBIN 29 PG (25-34); MEAN CORPUSCULAR HGB CONC 34 G/DL (32-36); MEAN CORPUSCULAR VOLUME 85 FL (80-99); MEAN PLATELET VOLUME 8.5 FL (7.4-10.4); MONOCYTES # (AUTO) 0.7 X 10^3 (0.0-1.0); MONOCYTES % (AUTO) 15 % (0-12); NEUTROPHILS # (AUTO) 2.6 X 10^3 (1.8-7.8); NEUTROPHILS % (AUTO) 55 % (42-75); PLATELET COUNT 276 10^3/uL (130-400); RED CELL DISTRIBUTION WIDTH 13.7 % (10.0-14.5); WHITE BLOOD COUNT 4.8 10^3/uL (4.3-11.0)
[2020-03-22 03:39] LABS: ALBUMIN 4.2 GM/DL (3.2-4.5); POTASSIUM 4.5 MMOL/L (3.6-5.0)
[2020-03-22 03:40] LABS: CALCIUM 9.2 MG/DL (8.5-10.1); INR 0.9 (0.8-1.4); PROTHROMBIN TIME PATIENT 12.9 SEC (12.2-14.7)
[2020-03-22 03:43] LABS: BILIRUBIN,TOTAL 0.4 MG/DL (0.1-1.0)
[2020-03-22 03:45] LABS: CREATININE SERUM 0.99 MG/DL (0.60-1.30)
[2020-03-22 03:48] LABS: MAGNESIUM 1.8 MG/DL (1.6-2.4)
[2020-03-22 04:07] LABS: BILIRUBIN,URINE NEGATIVE (NEGATIVE); CLARITY,URINE CLEAR; COLOR,URINE YELLOW; GLUCOSE, URINE (UA) NEGATIVE (NEGATIVE); KETONES,URINE NEGATIVE (NEGATIVE); LEUKOCYTE ESTERASE ,URINE NEGATIVE (NEGATIVE); NITRITE,URINE NEGATIVE (NEGATIVE); PH,URINE 8.5 (5-9); PROTEIN,URINE NEGATIVE (NEGATIVE)
--- NOTE | 2020-03-22 04:18 | ED General ---
General Chief Complaint: General Problems/Pain Stated Complaint: WEAK,SOB Nursing Triage Note: C/O INTERMITTANT GENERALIZED WEAKNESS SINCE 03/15/2020 REPORTS WORSE YESTERDAY. C/O SOA. DENIES FEVER/PAIN. MISSED BP MEDS YESTERDAY. Nursing Sepsis Screen: No Definite Risk Source of Information: Patient Exam Limitations: No Limitations History of Present Illness Date Seen by Provider: Mar 22, 2020 Time Seen by Provider: 03:01 Initial Comments This 84-year-old woman presents to the emergency room with complaints of generalized weakness and shortness of air that started yesterday. She clarifies the history above that she did take her blood pressure medications yesterday but has not yet had them this morning. She is notably hypertensive on arrival. She denies chest pain, cough, or fever. Echocardiogram in October showed a normal ejection fraction. Allergies and Home Medications Allergies Coded Allergies: Penicillins (Unverified Allergy, Intermediate, RASH, 07/29/06) clopidogrel (Verified Allergy, Mild, ITCHING, 04/03/15) Home Medications Acetaminophen 500 Mg Tab, 1,000 MG PO Q6H PRN for PAIN, (Reported) Albuterol Sulfate 8.5 Gm Aer.w.adap, 2 PUFF IH Q4H PRN for SHORTNESS OF BREATH, (Reported) Alprazolam 0.25 Mg Tablet, 0.25 MG PO Q8H PRN for ANXIETY, (Reported) Aspirin 325 Mg Tabec, 325 MG PO DAILY, (Reported) Budesonide/Formoterol Fumarate 1 Inhaler Aero, 2 PUFF INH BID PRN for SHORTNESS OF BREATH, (Reported) Cetirizine HCl 10 Mg Tab.chew, 10 MG PO DAILY, (Reported) Hydrocodone/Acetaminophen 1 Each Tablet, 1 TAB PO Q6H Prescribed by: CEDRICK BLANC on 06/09/192104 Levofloxacin 750 Mg Tablet, 750 MG PO DAILY, (Reported) Losartan Potassium 50 Mg Tablet, 50 MG PO DAILY, (Reported) Metoprolol Succinate 50 Mg Tab.sr.24h, 50 MG PO DAILY, (Reported) Montelukast Sodium 10 Mg Tablet, 10 MG PO HS, (Reported) Nitroglycerin 0.4 Mg Subl, 0.4 MG SL UD PRN for CHEST PAIN, (Reported) [place] 3 Polyunsat Fatty Acids 1,000 Mg Cap, 3,000 MG PO DAILY, (Reported) Ondansetron 4 Mg Tab.rapdis, 4 MG PO Q6H PRN for NAUSEA/VOMITING Prescribed by: CEDRICK BLANC on 01/28/20 1244 Ondansetron 4 Mg Tab.rapdis, 4 MG PO Q4H PRN for NAUSEA/VOMITING Prescribed by: VINH WEATHERS on 03/22/20 0501 Pantoprazole Sod 40 Mg Tab, 40 MG PO DAILY, (Reported) Ranolazine 500 Mg Tab.sr.12h, 500 MG PO BID, (Reported) Rosuvastatin Calcium 10 Mg Tab, 10 MG PO HS, (Reported) Sertraline HCl 100 Mg Tablet, 100 MG PO DAILY, (Reported) Tiotropium [place] 4 Gm Mist.inhal, 1 CAP INH DAILY PRN for SHORTNESS OF BREATH, (Reported) Patient Home Medication List Home Medication List Reviewed: Yes Review of Systems Review of Systems Constitutional: see HPI EENTM: no symptoms reported Respiratory: see HPI Cardiovascular: no symptoms reported Gastrointestinal: no symptoms reported Genitourinary: no symptoms reported : No Musculoskeletal: no symptoms reported Skin: no symptoms reported Psychiatric/Neurological: No Symptoms Reported Hematologic/Lymphatic: No Symptoms Reported Immunological/Allergic: no symptoms reported Past Bbgmvpr-Gnbpoc-Laqidu Hx Past Med/Social Hx: Reviewed Nursing Past Med/Soc Hx Patient Social History Alcohol Use: Denies Use Number of Drinks Today: Alcohol Beverage of Choice: Wine Recreational Drug Use: No Smoking Status: Never a Smoker 2nd Hand Smoke Exposure: No Recent Foreign Travel: No Contact w/Someone Who Travel: No Recent Infectious Disease Expo: No Recent Hopitalizations: No Physical Abuse: No Sexual Abuse: No Mistreated: No Fear: No Immunizations Up To Date Tetanus Booster (TDap): Less than 5yrs PED Vaccines UTD: Yes Date of Pneumonia Vaccine: Jun 07, 2013 Date of Influenza Vaccine: May 20, 2015 Seasonal Allergies Seasonal Allergies: No Past Medical History Surgeries: Yes (STENT X1, HEMMROIDECTOMY, PARATHYROID, carpal tunnel ) Coronary Stent, Orthopedic Respiratory: Yes (COPD) Asthma, COPD Currently Using CPAP: No Currently Using BIPAP: No Cardiac: Yes (STENT - 2009) Coronary Artery Disease, High Cholesterol, Hypertension Neurological: No : No 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 Sexually Transmitted Disease: No HIV/AIDS: No Genitourinary: No Gastrointestinal: Yes Gastroesophageal Reflux, Hemorrhoids, Polyps, Gall Bladder Disease, Irritable Bowel Musculoskeletal: Yes Arthritis Endocrine: No Cataract Loss of Vision: Denies Hearing Impairment: Denies Cancer: No Psychosocial: Yes Anxiety Integumentary: No Blood Disorders: No Adverse Reaction/Blood Tranf: No Family Medical History Colon cancer 19 MOTHER FH: emphysema 19 FATHER FH: lung cancer G8 BROTHER Prostate cancer G8 BROTHER Physical Exam Vital Signs Vital Signs - First Documented 03/22/20 02:55 Temp 36.0 Pulse 77 Resp 18 B/P (MAP) 191/114 (139) Pulse Ox 100 O2 Delivery Room Air Capillary Refill : Less Than 3 Seconds Height, Weight, BMI Height: 5'4.00" Weight: 125lbs. 0.0oz. 56.806820re; 21.00 BMI Method:Stated General Appearance: No Apparent Distress, WD/WN HEENT: PERRL/EOMI, Normal ENT Inspection, Other (Oropharynx somewhat dry) Neck: Normal Inspection Respiratory: Lungs Clear, Normal Breath Sounds, No Accessory Muscle Use, No Respiratory Distress Cardiovascular: Regular Rate, Rhythm, No Edema, No Murmur Gastrointestinal: Normal Bowel Sounds, Non Tender, Soft Extremity: Normal Inspection, No Pedal Edema Neurologic/Psychiatric: Alert, Oriented x3, No Motor/Sensory Deficits, Normal Mood/Affect, information systems supervisor II-XII Norm as Tested Skin: Normal Color, Warm/Dry Progress/Results/Core Measures Suspected Sepsis Recent Fever Within 48 Hours: No Infection Criteria Present: None New/Unexplained Altered Menta: No Sepsis Screen: No Definite Risk SIRS Temperature: Pulse: 77 Respiratory Rate: 18 Laboratory Tests 03/22/20 03:10: White Blood Count 4.8 Blood Pressure 191 /114 Mean: 139 Laboratory Tests 03/22/20 03:10: Creatinine 0.99, INR Comment 0.9, Platelet Count 276, Total Bilirubin 0.4 Results/Orders Lab Results Laboratory Tests Test 03/22/20 03:10 03/22/20 03:12 03/22/20 03:50 Range/Units White Blood Count 4.8 4.3-11.0 10^3/uL Red Blood Count 4.38 4.35-5.85 10^6/uL Hemoglobin 12.6 11.5-16.0 G/DL Hematocrit 37 35-52 % Mean Corpuscular Volume 85 80-99 FL Mean Corpuscular Hemoglobin 29 25-34 PG Mean Corpuscular Hemoglobin Concent 34 32-36 G/DL Red Cell Distribution Width 13.7 10.0-14.5 % Platelet Count 276 130-400 10^3/uL Mean Platelet Volume 8.5 7.4-10.4 FL Neutrophils (%) (Auto) 55 42-75 % Lymphocytes (%) (Auto) 25 12-44 % Monocytes (%) (Auto) 15 H 0-12 % Eosinophils (%) (Auto) 4 0-10 % Basophils (%) (Auto) 1 0-10 % Neutrophils # (Auto) 2.6 1.8-7.8 X 10^3 Lymphocytes # (Auto) 1.2 1.0-4.0 X 10^3 Monocytes # (Auto) 0.7 0.0-1.0 X 10^3 Eosinophils # (Auto) 0.2 0.0-0.3 10^3/uL Basophils # (Auto) 0.1 0.0-0.1 10^3/uL Prothrombin Time 12.9 12.2-14.7 SEC INR Comment 0.9 0.8-1.4 Activated Partial Thromboplast Time 27 24-35 SEC Sodium Level 130 L 135-145 MMOL/L Potassium Level 4.5 3.6-5.0 MMOL/L Chloride Level 97 L 98-107 MMOL/L Carbon Dioxide Level 21 21-32 MMOL/L Anion Gap 12 5-14 MMOL/L Blood Urea Nitrogen 11 7-18 MG/DL Creatinine 0.99 0.60-1.30 MG/DL Estimat Glomerular Filtration Rate 53 BUN/Creatinine Ratio 11 Glucose Level 92 70-105 MG/DL Calcium Level 9.2 8.5-10.1 MG/DL Corrected Calcium 9.0 8.5-10.1 MG/DL Magnesium Level 1.8 1.6-2.4 MG/DL Total Bilirubin 0.4 0.1-1.0 MG/DL Aspartate Amino Transf (AST/SGOT) 20 5-34 U/L Alanine Aminotransferase (ALT/SGPT) 15 0-55 U/L Alkaline Phosphatase 56 40-136 U/L Myoglobin 61.8 10.0-92.0 NG/ML Troponin I < 0.028 <0.028 NG/ML C-Reactive Protein High Sensitivity 0.13 0.00-0.50 MG/DL B-Type Natriuretic Peptide 170.1 H <100.0 PG/ML Total Protein 7.0 6.4-8.2 GM/DL Albumin 4.2 3.2-4.5 GM/DL TSH [place] Testing 2.45 0.35-4.94 UIU/ML Urine Color YELLOW Urine Clarity CLEAR Urine pH 8.5 5-9 Urine Specific [place] 1.010 L 1.016-1.022 Urine Protein NEGATIVE NEGATIVE Urine Glucose (UA) NEGATIVE NEGATIVE Urine Ketones NEGATIVE NEGATIVE Urine Nitrite NEGATIVE NEGATIVE Urine Bilirubin NEGATIVE NEGATIVE Urine Urobilinogen 0.2 < = 1.0 MG/DL Urine Leukocyte Esterase NEGATIVE NEGATIVE Urine RBC (Auto) NEGATIVE NEGATIVE Urine RBC NONE /HPF Urine WBC NONE /HPF Urine Squamous Epithelial Cells 0-2 /HPF Urine Crystals NONE /LPF Urine Bacteria NEGATIVE /HPF Urine Casts NONE /LPF Urine Mucus NEGATIVE /LPF Urine Culture Indicated NO My Orders Orders - VINH MULLIGAN MD Cbc With Automated Diff (03/22/20 03:13) Magnesium (03/22/20 03:13) Chest 1 View, Ap/Pa Only (03/22/20 03:13) Ekg Tracing (03/22/20 03:13) Comprehensive Metabolic Panel (03/22/20 03:13) Myoglobin Serum (03/22/20 03:13) Protime With Inr (03/22/20 03:13) Partial Thromboplastin Time (03/22/20 03:13) O2 (03/22/20 03:13) Monitor-Rhythm Ecg Trace Only (03/22/20 03:13) Ed Iv/Invasive Line Start (03/22/20 03:13) Troponin I (03/22/20 03:13) Coronavirus Sars-Cov-2 So 2018 (03/22/20 03:13) BNP (03/22/20 03:13) Hs C Reactive Protein (03/22/20 03:13) Ua Culture If Indicated (03/22/20 03:17) Ondansetron Injection (Zofran Injectio (03/22/20 04:30) Thyroid Analyzer (03/22/20 05:02) Medications Given in ED Current Medications Medications Dose Ordered Sig/Kendra Route Start Time Stop Time Status Last Admin Dose Admin Ondansetron HCl 8 mg ONCE ONCE IVP 03/22/20 04:30 03/22/20 04:31 DC 03/22/20 04:37 8 MG Vital Signs/I&O 03/22/20 03/22/20 02:55 05:05 Temp 36.0 36.3 Pulse 77 69 Resp 18 20 B/P (MAP) 191/114 (139) 191/90 (139) Pulse Ox 100 98 O2 Delivery Room Air Room Air Capillary Refill : Less Than 3 Seconds Blood Pressure Mean: 139 Progress Note : Progress Note Patient received Zofran for nausea. She otherwise required no medications. Workup was fairly unremarkable. COVID-19 swab was obtained. Hypertension did improve some without particular treatment. She was advised to take her blood pressure medications as soon as she returns home. ECG Initial ECG Impression Date: Mar 22, 2020 Initial ECG Impression Time: 03:19 Initial ECG Rate: 68 Initial ECG Rhythm: Normal Sinus Initial ECG Intervals: Normal Comment Sinus rhythm with no ST elevation or depression. Chronic left bundle branch block unchanged from prior. No axis deviation. Diagnostic Imaging Diagonstic Imaging: Xray Plain Films/CT/US/NM/MRI: chest Comments Chest x-ray viewed by me and report reviewed. See report below: NAME: JOEL CABALLERO MED REC#: [id number] PT STATUS: DEP ER : 1935 PHYSICIAN: VINH MULLIGAN MD ADMIT DATE: 03/22/20/ER Draft Date of Exam:03/22/20 CHEST 1 VIEW, AP/PA ONLY INDICATION: Shortness of breath. COMPARISON: 01/28/2020. FINDINGS: Single view of the chest demonstrates minimal atelectasis in the left base. Right lung is clear. Heart is normal. There is no pneumothorax. Osseous structures are stable. Chronic degenerative changes seen involving both shoulders. IMPRESSION: Minimal atelectasis left base. Follow-up recommended. Dictated on workstation # [id number] Dict: 03/22/20608 Trans: 03/22/20 0611 [id number] Interpreted by: CLAUDIA RODRIGUEZ Departure Impression Primary Impression: Generalized weakness Additional Impressions: Nausea Hypertension Qualified Codes: I10 - Essential (primary) hypertension Disposition: 01 HOME, SELF-CARE Condition: Improved Departure-Patient Inst. Decision time for Depature: 04:52 Referrals: CARISSA BROWNE MD (PCP/Family) Primary Care Physician Patient Instructions: Nausea and Vomiting, Adult (DC) Add. Discharge Instructions: Drink plenty of clear liquids. Return home and promptly take your blood pressure medications. Contact your doctor later today to arrange follow-up and give an update on your status. Use Zofran as prescribed dissolved under the tongue for nausea and vomiting. Return to the ER if you have worsening symptoms. Home isolate until the result of your COVID test is known. All discharge instructions reviewed with patient and/or family. Voiced understanding. Scripts Ondansetron (Ondansetron Odt) 4 Mg Tab.rapdis 4 MG PO Q4H PRN for NAUSEA/VOMITING, #10 TAB Prov: VINH MULLIGAN MD 03/22/20 Copy Copies To 1: CARISSA BROWNE MD, JOSHUA T MD Mar 22, 2020 04:18
[2020-03-22] MEDS ORDERED: ONDANSETRON 4 MG/2 ML (SDV) Z0FRAN IVP ONE (04:30)
[2020-03-22 04:35] LABS: BACTERIA,URINE NEGATIVE /HPF; SQUAMOUS EPITHELIAL CELL,UR 0-2 /HPF
--- NOTE | 2020-03-22 04:55 | NUR ---
PT'S SON UPDATED BY DR MULLIGAN.
[2020-03-22] MEDS ORDERED: ONDA4TAB11 PO (05:01)
[2020-03-22 05:05] VITALS: BP 191/90
--- NOTE | 2020-03-22 06:12 | Diagnostic Imaging Report ---
INDICATION: Shortness of breath. COMPARISON: 01/28/2020. FINDINGS: Single view of the chest demonstrates minimal atelectasis in the left base. Right lung is clear. Heart is normal. There is no pneumothorax. Osseous structures are stable. Chronic degenerative changes seen involving both shoulders. IMPRESSION: Minimal atelectasis left base. Follow-up recommended. Dictated by: Dictated on workstation # [id number]
== END 2020-03-22 05:05 | disposition home or self-care (01) ==
LOC: EDUNIT# 02:48 → ER 02:51
DX: R53.1 Weakness (principal); R11.0 Nausea; I10 Essential (primary) hypertension; J44.9 Chronic obstructive pulmonary disease, unspecified; I25.10 Atherosclerotic heart disease of native coronary artery without angina pectoris; K21.9 Gastro-esophageal reflux disease without esophagitis; E78.00 Pure hypercholesterolemia, unspecified; F41.9 Anxiety disorder, unspecified; Z91.14 Patient's other noncompliance with medication regimen; Z88.0 Allergy status to penicillin; Z88.8 Allergy status to other drugs, medicaments and biological substances; Z79.82 Long term (current) use of aspirin; Z20.828 Contact with and (suspected) exposure to other viral communicable diseases; Z95.5 Presence of coronary angioplasty implant and graft; Z80.0 Family history of malignant neoplasm of digestive organs; Z80.1 Family history of malignant neoplasm of trachea, bronchus and lung; Z80.42 Family history of malignant neoplasm of prostate
CPT/HCPCS: 71045; 80053; 81000; 83735; 83874; 83880; 84443; 84484; 85025; 85610; 85730; 86141; 93041; 99284; U0002; 36415; 87635; 93005

== ENCOUNTER 2020-03-31 03:16 | Observation (INO) | payer MEDICARE ==
[~2020-03-31] VITALS: Ht 160 cm; Wt 5.7 kg
[2020-03-31] MEDS ORDERED: NS IV 500 ML 500 ML IV ONE ×2 (03:59→05:07)
[2020-03-31] MEDS ORDERED: hydrALAZINE (APESOLINE) 20 MG/ML VIAL IV ONE (04:00)
[2020-03-31 04:16] LABS: BASOPHILS % (AUTO) 1 % (0-10); EOSINOPHILS # (AUTO) 0.2 10^3/uL (0.0-0.3); EOSINOPHILS % (AUTO) 3 % (0-10); HEMATOCRIT 37 % (35-52); HEMOGLOBIN 12.9 G/DL (11.5-16.0); LYMPHOCYTES # (AUTO) 1.4 X 10^3 (1.0-4.0); LYMPHOCYTES % (AUTO) 22 % (12-44); MEAN CORPUSCULAR HEMOGLOBIN 30 PG (25-34); MEAN CORPUSCULAR HGB CONC 35 G/DL (32-36); MEAN CORPUSCULAR VOLUME 84 FL (80-99); MEAN PLATELET VOLUME 8.6 FL (7.4-10.4); MONOCYTES % (AUTO) 17 % (0-12); NEUTROPHILS # (AUTO) 3.6 X 10^3 (1.8-7.8); NEUTROPHILS % (AUTO) 58 % (42-75); PLATELET COUNT 318 10^3/uL (130-400); RED CELL DISTRIBUTION WIDTH 13.8 % (10.0-14.5); WHITE BLOOD COUNT 6.2 10^3/uL (4.3-11.0)
[2020-03-31 04:17] LABS: BILIRUBIN,URINE NEGATIVE (NEGATIVE); CLARITY,URINE CLEAR; COLOR,URINE YELLOW; GLUCOSE, URINE (UA) NEGATIVE (NEGATIVE); KETONES,URINE NEGATIVE (NEGATIVE); LEUKOCYTE ESTERASE ,URINE NEGATIVE (NEGATIVE); NITRITE,URINE NEGATIVE (NEGATIVE); PH,URINE 8.5 (5-9); PROTEIN,URINE NEGATIVE (NEGATIVE)
--- NOTE | 2020-03-31 04:22 | ED General ---
General Chief Complaint: Respiratory Problems Stated Complaint: SOB Source of Information: Patient Exam Limitations: No Limitations History of Present Illness Date Seen by Provider: Mar 31, 2020 Time Seen by Provider: 03:50 Initial Comments Here with report of shortness of breath and hypertension. Similar presentation about a week ago at about the same time in the morning. Patient states that she has to he multiple times during the night. The same happened tonight and she got up and went to the bathroom. On returning to bed and she noted the shortness of air. Subsequent check of her blood pressure revealed it was high and she called family who brought her here. Reports nausea but no vomiting. Denies chest pain. Denies upper respiratory symptoms. Did have COVID-19 test last week that was negative. States that she does not leave the house and her family brings her and her food supplies as needed. Denies contact with anyone that is sick or COVID 19 positive for suspected. Family reports that they checked her pulse oximeter home and she was in the 40s to 60s. There was noted on arrival here that O2 saturation on the thumb and finger of the left hand were lower but was 97-100% when using the pinky finger on the left hand. Timing/Duration: 1 Hour Severity: Moderate Associated Systoms: No Chest Pain, No Fever/Chills; Nausea/Vomiting, Shortness of Air; No Weakness Allergies and Home Medications Allergies Coded Allergies: Penicillins (Unverified Allergy, Intermediate, RASH, 03/31/20) clopidogrel (Verified Allergy, Mild, ITCHING, 03/31/20) Home Medications Acetaminophen 500 Mg Tab, 1,000 MG PO Q6H PRN for PAIN, (Reported) Albuterol Sulfate 8.5 Gm Aer.w.adap, 2 PUFF IH Q4H PRN for SHORTNESS OF BREATH, (Reported) Alprazolam 0.25 Mg Tablet, 0.25 MG PO Q8H PRN for ANXIETY, (Reported) Aspirin 325 Mg Tabec, 325 MG PO DAILY, (Reported) Budesonide/Formoterol Fumarate 1 Inhaler Aero, 2 PUFF INH BID PRN for SHORTNESS OF BREATH, (Reported) Cetirizine HCl 10 Mg Tab.chew, 10 MG PO DAILY, (Reported) Hydrocodone/Acetaminophen 1 Each Tablet, 1 TAB PO Q6H Prescribed by: CEDRICK BLANC on 06/09/192104 Levofloxacin 750 Mg Tablet, 750 MG PO DAILY, (Reported) Losartan Potassium 50 Mg Tablet, 50 MG PO DAILY, (Reported) Metoprolol Succinate 50 Mg Tab.sr.24h, 50 MG PO DAILY, (Reported) Montelukast Sodium 10 Mg Tablet, 10 MG PO HS, (Reported) Nitroglycerin 0.4 Mg Subl, 0.4 MG SL UD PRN for CHEST PAIN, (Reported) [place] 3 Polyunsat Fatty Acids 1,000 Mg Cap, 3,000 MG PO DAILY, (Reported) Ondansetron 4 Mg Tab.rapdis, 4 MG PO Q6H PRN for NAUSEA/VOMITING Prescribed by: CEDRICK BLANC on 01/28/20 1244 Ondansetron 4 Mg Tab.rapdis, 4 MG PO Q4H PRN for NAUSEA/VOMITING Prescribed by: VINH WEATHERS on 03/22/20 0501 Pantoprazole Sod 40 Mg Tab, 40 MG PO DAILY, (Reported) Ranolazine 500 Mg Tab.sr.12h, 500 MG PO BID, (Reported) Rosuvastatin Calcium 10 Mg Tab, 10 MG PO HS, (Reported) Sertraline HCl 100 Mg Tablet, 100 MG PO DAILY, (Reported) Tiotropium [place] 4 Gm Mist.inhal, 1 CAP INH DAILY PRN for SHORTNESS OF BREATH, (Reported) Patient Home Medication List Home Medication List Reviewed: Yes Review of Systems Review of Systems Constitutional: see HPI; No chills, No fever EENTM: No no symptoms reported Respiratory: cough (mild secondary to dry mouth that is intermittent), short of breath; No wheezing Cardiovascular: see HPI; No chest pain, No edema Gastrointestinal: constipation, nausea; No vomiting Musculoskeletal: no symptoms reported Skin: no symptoms reported Psychiatric/Neurological: Anxiety; Denies Headache Hematologic/Lymphatic: No Symptoms Reported All Other Systems Reviewed Negative Unless Noted: Yes Past Sewgckp-Szzqno-Raukni Hx Past Med/Social Hx: Reviewed Nursing Past Med/Soc Hx Patient Social History Alcohol Use: Occasionally Uses Alcohol Beverage of Choice: Wine Recreational Drug Use: No Smoking Status: Never a Smoker 2nd Hand Smoke Exposure: No Recent Hopitalizations: No Immunizations Up To Date Tetanus Booster (TDap): Less than 5yrs PED Vaccines UTD: Yes Date of Pneumonia Vaccine: Jun 07, 2013 Date of Influenza Vaccine: May 20, 2015 Seasonal Allergies Seasonal Allergies: No Past Medical History Surgeries: Yes (STENT X1, HEMMROIDECTOMY, PARATHYROID, carpal tunnel ) Coronary Stent, Orthopedic Respiratory: Yes (COPD) Asthma, COPD Currently Using CPAP: No Currently Using BIPAP: No Cardiac: Yes (STENT - 2010) Coronary Artery Disease, High Cholesterol, Hypertension Neurological: No Reproductive Disorders: No [employer] History: Menopausal Sexually Transmitted Disease: No HIV/AIDS: No Genitourinary: No Gastrointestinal: Yes Gastroesophageal Reflux, Hemorrhoids, Polyps, Gall Bladder Disease, Irritable Bowel Musculoskeletal: Yes Arthritis Endocrine: No Cataract Loss of Vision: Denies Hearing Impairment: Denies Cancer: No Psychosocial: Yes Anxiety Integumentary: No Blood Disorders: No Adverse Reaction/Blood Tranf: No Family Medical History Reviewed Nursing Family Hx Colon cancer 19 MOTHER FH: emphysema 19 FATHER FH: lung cancer G8 BROTHER Prostate cancer G8 BROTHER Physical Exam-Suspected Sepsis Physical Exam Vital Signs Vital Signs - First Documented 03/31/20 03/31/20 03:42 04:49 Temp 36.2 Pulse 69 Resp 20 B/P (MAP) 205/92 (129) Pulse Ox 100 O2 Delivery Room Air Capillary Refill : Height, Weight, BMI Height: 5'4.00" Weight: 125lbs. 0.0oz. [id number]; 21.00 BMI Method:Stated General Appearance: No Apparent Distress, WD/WN HEENT: PERRL/EOMI, Pharynx Normal Neck: Non Tender, Supple Respiratory: Lungs Clear, Normal Breath Sounds Cardiovascular: Regular Rate, Rhythm, No Murmur Gastrointestinal: Non Tender, Soft Back: Normal Inspection, No CVA Tenderness, No Vertebral Tenderness Extremity: Normal Range of Motion, Non Tender Neurologic/Psychiatric: Alert, Oriented x3 Skin: normal color, warm/dry Focused Exam Lactate Level 03/31/20 03:45: Lactic Acid Level 2.63*H 03/31/20 06:18: Lactic Acid Level 2.31*H Lactic Acid Level Laboratory Tests Test 03/31/20 03:45 03/31/20 06:18 Lactic Acid Level 2.63 MMOL/L (0.50-2.00) *H 2.31 MMOL/L (0.50-2.00) *H Progress/Results/Core Measures Suspected Sepsis SIRS Temperature: Pulse: Respiratory Rate: Laboratory Tests 03/31/20 03:45: White Blood Count 6.2 Blood Pressure / Mean: 03/31/20 03:45: Lactic Acid Level 2.63*H 03/31/20 06:18: Lactic Acid Level 2.31*H Laboratory Tests 03/31/20 03:45: Creatinine 0.83, INR Comment 1.0, Platelet Count 318, Total Bilirubin 0.6 Results/Orders Lab Results Laboratory Tests Test 03/31/20 03:45 03/31/20 04:10 03/31/20 06:18 Range/Units White Blood Count 6.2 4.3-11.0 10^3/uL Red Blood Count 4.36 4.35-5.85 10^6/uL Hemoglobin 12.9 11.5-16.0 G/DL Hematocrit 37 35-52 % Mean Corpuscular Volume 84 80-99 FL Mean Corpuscular Hemoglobin 30 25-34 PG Mean Corpuscular Hemoglobin Concent 35 32-36 G/DL Red Cell Distribution Width 13.8 10.0-14.5 % Platelet Count 318 130-400 10^3/uL Mean Platelet Volume 8.6 7.4-10.4 FL Neutrophils (%) (Auto) 58 42-75 % Lymphocytes (%) (Auto) 22 12-44 % Monocytes (%) (Auto) 17 H 0-12 % Eosinophils (%) (Auto) 3 0-10 % Basophils (%) (Auto) 1 0-10 % Neutrophils # (Auto) 3.6 1.8-7.8 X 10^3 Lymphocytes # (Auto) 1.4 1.0-4.0 X 10^3 Monocytes # (Auto) 1.0 0.0-1.0 X 10^3 Eosinophils # (Auto) 0.2 0.0-0.3 10^3/uL Basophils # (Auto) 0.0 0.0-0.1 10^3/uL Erythrocyte Sedimentation Rate 8 0-30 MM/HR Prothrombin Time 13.4 12.2-14.7 SEC INR Comment 1.0 0.8-1.4 Activated Partial Thromboplast Time 28 24-35 SEC D-Dimer 0.25 0.00-0.49 UG/ML Sodium Level 127 L 135-145 MMOL/L Potassium Level 4.3 3.6-5.0 MMOL/L Chloride Level 94 L 98-107 MMOL/L Carbon Dioxide Level 20 L 21-32 MMOL/L Anion Gap 13 5-14 MMOL/L Blood Urea Nitrogen 22 H 7-18 MG/DL Creatinine 0.83 0.60-1.30 MG/DL Estimat Glomerular Filtration Rate > 60 BUN/Creatinine Ratio 27 Glucose Level 97 70-105 MG/DL Lactic Acid Level 2.63 *H 2.31 *H 0.50-2.00 MMOL/L Calcium Level 9.2 8.5-10.1 MG/DL Corrected Calcium 9.0 8.5-10.1 MG/DL Total Bilirubin 0.6 0.1-1.0 MG/DL Aspartate Amino Transf (AST/SGOT) 20 5-34 U/L Alanine Aminotransferase (ALT/SGPT) 16 0-55 U/L Alkaline Phosphatase 47 40-136 U/L Lactate Dehydrogenase 215 125-220 U/L C-Reactive Protein High Sensitivity 0.12 0.00-0.50 MG/DL Total Protein 7.0 6.4-8.2 GM/DL Albumin 4.2 3.2-4.5 GM/DL Procalcitonin 0.03 <0.10 NG/ML Urine Color YELLOW Urine Clarity CLEAR Urine pH 8.5 5-9 Urine Specific [place] 1.010 L 1.016-1.022 Urine Protein NEGATIVE NEGATIVE Urine Glucose (UA) NEGATIVE NEGATIVE Urine Ketones NEGATIVE NEGATIVE Urine Nitrite NEGATIVE NEGATIVE Urine Bilirubin NEGATIVE NEGATIVE Urine Urobilinogen 0.2 < = 1.0 MG/DL Urine Leukocyte Esterase NEGATIVE NEGATIVE Urine RBC (Auto) NEGATIVE NEGATIVE Urine RBC RARE /HPF Urine WBC 0-2 /HPF Urine Squamous Epithelial Cells 0-2 /HPF Urine Crystals PRESENT H /LPF Urine Calcium Oxalate Crystals RARE H /LPF Urine Bacteria TRACE /HPF Urine Casts NONE /LPF Urine Mucus NEGATIVE /LPF Urine Culture Indicated CULTURE PENDING My Orders Orders - SOFY WOLF MD Cbc With Automated Diff (03/31/20 03:59) Comprehensive Metabolic Panel (03/31/20 03:59) Blood Culture (03/31/20 03:59) Sputum Culture (03/31/20 03:59) Urinalysis (03/31/20 03:59) Urine Culture (03/31/20 03:59) Protime With Inr (03/31/20 03:59) Partial Thromboplastin Time (03/31/20 03:59) Chest 1 View, Ap/Pa Only (03/31/20 03:59) Ed Iv/Invasive Line Start (03/31/20 03:59) Vital Signs Adult Sepsis Patie Q15M (03/31/20 03:59) O2 (03/31/20 03:59) Remove Rings In Anticipation O (03/31/20 03:59) Lactic Acid Analyzer (03/31/20 03:59) Ns Iv 500 Ml (Sodium Chloride 0.9%) (03/31/20 03:59) Hydralazine Injection (Apresoline Inject (03/31/20 04:00) Fibrin Degradation Products (03/31/20 03:59) Procalcitonin (Pct) (03/31/20 03:59) Hs C Reactive Protein (03/31/20 03:59) Erythrocyte Sedimentation Rate (03/31/20 03:59) LDH (03/31/20 03:59) Ondansetron Injection (Zofran Injectio (03/31/20 04:30) Ns Iv 500 Ml (Sodium Chloride 0.9%) (03/31/20 05:07) Ketorolac Injection (Toradol Injection) (03/31/20 06:46) Medications Given in ED Current Medications Medications Dose Ordered Sig/Kendra Route Start Time Stop Time Status Last Admin Dose Admin Hydralazine HCl 10 mg ONCE ONCE IV 03/31/20 04:00 03/31/20 04:01 DC 03/31/20 04:10 10 MG Ondansetron HCl 4 mg ONCE ONCE IVP 03/31/20 04:30 03/31/20 04:31 DC 03/31/20 04:26 4 MG Sodium Chloride 500 ml @ 0 mls/hr Q0M ONCE IV 03/31/20 03:59 03/31/20 04:01 DC 03/31/20 04:14 500 MLS/HR Sodium Chloride 500 ml @ 0 mls/hr Q0M ONCE IV 03/31/20 05:07 03/31/20 05:09 DC 03/31/20 05:14 500 MLS/HR Vital Signs/I&O 03/31/20 03/31/20 03:42 04:49 Temp 36.2 Pulse 69 75 Resp 20 20 B/P (MAP) 205/92 (129) 161/68 (99) Pulse Ox 100 97 O2 Delivery Room Air Capillary Refill : Progress Note : Progress Note Seen and evaluated. IV, labs, UA, blood cultures and lactic acid ordered. Normal saline 500 mL bolus, hydralazine 10 mg IV and Zofran 4 mg IV ordered. Monitor patient. 0600: Repeat normal saline 500 mL bolus done. Blood pressures 140s and 150 systolic. Repeat lactic acid ending. Monitor patient. 0707: Repeat lactic acid still greater than 2. I believe this is related to dehydration and potentially diet and not related to infectious symptoms as she has negative chest x-ray, negative urine, negative CRP and pro-calcitonin and normal white count. She is afebrile and has no indications of infection currently. She did have mild headache which was treated with 10 mg of Toradol IV and she states she is doing better. I discussed the case with Dr. Shields and she accepts patient for admission, observation status. This was discussed with the patient and she agrees with the plan. Family updated and agree. Diagnostic Imaging Diagonstic Imaging: Xray Plain Films/CT/US/NM/MRI: chest Comments [facility]. [place], [place] NAME: JOEL CABALLERO [facility] REC#: [id number] PT STATUS: REG ER : 1935 PHYSICIAN: SOFY WOLF MD ADMIT DATE: 03/31/20/ER Draft Date of Exam:03/31/20 CHEST 1 VIEW, AP/PA ONLY EXAMINATION: Chest radiograph, portable AP view. DATE: 03/31/2020 4:25 AM hours. INDICATION: 84-year-old female, shortness of breath and cough. COMPARISON: March 22, 2020. FINDINGS: Heart size and mediastinal contours are unremarkable. There is no identified pneumothorax. There is no large pleural effusion. There is no identified focal airspace consolidation. There are bilateral glenohumeral arthritic changes. There are intra-articular bodies bilaterally. IMPRESSION: 1. No identified acute cardiopulmonary abnormality. Dictated on workstation # [id number] Dict: 03/31/2004 Trans: 03/31/2005 CV [id number] Interpreted by: CHINEDU TIJERINA MD Electronically signed by: Reviewed: Reviewed by Me (home body) Departure Communication (Admissions) Time/Spoke to Admitting Phy: 07:07 Impression Primary Impression: Hyponatremia Additional Impressions: Dehydration Lactic acidosis Nausea Disposition: 09 ADMITTED INPATIENT Condition: Stable Admissions Decision to Admit Reason: Admit from ER (General) Decision to Admit/Date: Mar 31, 2020 Time/Decision to Admit Time: 07:07 Departure-Patient Inst. Referrals: CARISSA BROWNE MD (PCP) Primary Care Physician SOFY WOLF MD Mar 31, 2020 04:21
[2020-03-31 04:28] LABS: BACTERIA,URINE TRACE /HPF; CALCIUM OXALATE CRYSTALS,UR RARE /LPF; RBC,URINE RARE /HPF; SQUAMOUS EPITHELIAL CELL,UR 0-2 /HPF; WBC,URINE 0-2 /HPF
[2020-03-31] MEDS ORDERED: ONDANSETRON 4 MG/2 ML (SDV) Z0FRAN IVP ONE (04:30)
[2020-03-31 04:35] LABS: ALBUMIN 4.2 GM/DL (3.2-4.5)
[2020-03-31 04:36] LABS: CHLORIDE 94 MMOL/L (98-107); POTASSIUM 4.3 MMOL/L (3.6-5.0); SODIUM 127 MMOL/L (135-145)
[2020-03-31 04:37] LABS: CALCIUM 9.2 MG/DL (8.5-10.1)
[2020-03-31 04:38] LABS: GLUCOSE 97 MG/DL (70-105)
[2020-03-31 04:39] LABS: CARBON DIOXIDE 20 MMOL/L (21-32)
[2020-03-31 04:40] LABS: BILIRUBIN,TOTAL 0.6 MG/DL (0.1-1.0)
[2020-03-31 04:41] LABS: ALKALINE PHOSPHATASE 47 U/L (40-136)
[2020-03-31 04:42] LABS: CREATININE SERUM 0.83 MG/DL (0.60-1.30); GFR ESTIMATED > 60
[2020-03-31 04:43] LABS: BUN/CREATININE RATIO 27
[2020-03-31 04:44] LABS: ALANINE AMINOTRANSFERASE 16 U/L (0-55)
[2020-03-31 04:45] LABS: ERYTHROCYTE SEDIMENTATION RATE 8 MM/HR (0-30)
[2020-03-31 04:49] VITALS: BP 161/68
[2020-03-31 04:50] LABS: FIBRIN DEGRADATION PRODUCTS 0.25 UG/ML (0.00-0.49); PROTHROMBIN TIME PATIENT 13.4 SEC (12.2-14.7)
--- NOTE | 2020-03-31 06:15 | NUR ---
SPOKE TO LAURA ABOUT CARE JOEL HAD RECIEVED SINCE ARRIVAL TO THE ER. DISCUSSED LOW O2 SATURATION PATIENT HAD PRESENTED AT HOME FAMILY REPORTS WAS DOWN IN THE 40'S TO MID 70'S, PATIENT UPON ARRIVAL HAD STATED TO THIS RN SHE FELT MORE ANXIOUS AT HOME AND FELT BETTER HEARING HER O2 SATURATION WAS 100% UPON ARRIVAL.
[2020-03-31] MEDS ORDERED: KETOROLAC 30 MG/ML VIAL IVP STA (06:46)
--- NOTE | 2020-03-31 07:06 | Diagnostic Imaging Report ---
EXAMINATION: Chest radiograph, portable AP view. DATE: 03/31/2020 4:25 AM hours. INDICATION: 84-year-old female, shortness of breath and cough. COMPARISON: March 22, 2020. FINDINGS: Heart size and mediastinal contours are unremarkable. There is no identified pneumothorax. There is no large pleural effusion. There is no identified focal airspace consolidation. There are bilateral glenohumeral arthritic changes. There are intra-articular bodies bilaterally. IMPRESSION: 1. No identified acute cardiopulmonary abnormality. Dictated by: Dictated on workstation # [id number]
--- NOTE | 2020-03-31 07:08 | NUR ---
SPOKE TO LAURA, PATIENTS SON ([phone]) UPDATED ABOUT PATIENT ADMISSION AND VISITING HOURS AND RESTRICTIONS.
--- NOTE | 2020-03-31 07:10 | NUR ---
PT RESTING IN BED, DR IN ROOM TALKING W PT CO ADMISSION, NO REQUESTS.
--- OUTSIDE RECORDS SUMMARY | 2020-03-31 07:36 | XMS REPORT | Continuity of Care Document ---
Author Organization Unknown Address Unknown Phone Unavailable Allergies Active Description Code Type Severity Reaction Onset Reported/Identified Relationship to Patient Clinical Status Yes Penicillins [id number] Drug Aller gy Moderate RASH 07/29/2006 Yes Plavix Plavix Moderate itching 12/27/2012 Yes clopidogrel [id number] Drug Aller gy Mild ITCHING 04/03/2015 Medications There is no data. 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 08/12/1111 CARISSA BROWNE MD Ot J45.9 09 UNSPECIFIED ASTHMA, UNCOMPLICATED 08/12/1111 CARISSA BROWNE MD Ot M54.3 1 SCIATICA, RIGHT SIDE 08/12/1111 CARISSA BROWNE MD Ot R53.1 WEAKNESS 08/12/1111 CARISSA BORWNE MD Ot Z87.8 1 PERSONAL HISTORY OF (HEALED) TRAUMATIC F 10/27/2009 Ot V45.82 10/27/2009 Ot V57.89 10/30/2009 Ot V45.82 10/30/2009 Ot V57.89 10/28/2010 Ot 272.4 HYPE RLIPIDEMIA NEC/NOS 10/28/2010 Ot 401.9 HYPE RTENSION NOS 10/28/2010 Ot 414.01 COR ONARY ATHEROSCLEROSIS OF [place] CORON 10/28/2010 Ot 426.3 LEFT BB BLOCK [...] 11/26/2010 Ot 414.01 COR ONARY ATHEROSCLEROSIS OF [place] CORON 11/26/2010 Ot 426.3 LEFT BB BLOCK [...] MD Ot 414. 01 CORONARY ATHEROSCLEROSIS OF [place] CORON 06/07/2013 HECTOR WALKER MD Ot 414. [...] MD Ot 414. 01 CORONARY ATHEROSCLEROSIS OF [place] CORON 03/26/2015 HECTOR WALKER MD Ot 416. [...] MD Ot 414. 01 CORONARY ATHEROSCLEROSIS OF [place] CORON 04/03/2015 HECTOR WALKER MD Ot 416. [...] MD Ot 786.0 9 05/22/2015 WENDIE MORENO EXTRACORPOREAL TECHNICIAN Ot 780.60 05/22/2015 WENDIE MORENO EXTRACORPOREAL TECHNICIAN Ot 786.2 05/23/2015 CARISSA BROWNE MD Ot 496 05/23/2015 CARISSA BROWNE MD Ot 786.0 9 05/28/2015 CARISSA BROWNE MD Ot 496 05/28/2015 CARISSA BROWNE MD Ot 786.0 9 05/28/2015 CARISSA BROWNE MD Ot 786.2 05/30/2015 WENDIE MORENO EXTRACORPOREAL TECHNICIAN Ot 780.60 05/30/2015 WENDIE MORENO EXTRACORPOREAL TECHNICIAN Ot 786.2 06/07/2015 CARISSA BROWNE MD Ot 496 06/07/2015 CARISSA BROWNE MD Ot 786.0 9 06/07/2015 CARISSA BROWNE MD Ot 786.2 06/16/2015 HECTOR WALKER MD Ot E78. 5 HYPERLIPIDEMIA, UNSPECIFIED 06/16/2015 HECTOR WALKER MD Ot I11. 9 HYPERTENSIVE HEART DISEASE WITHOUT HEART 06/16/2015 HECTOR WALKER MD Ot I25. 10 ATHSCL HEART DISEASE OF [place] CORONARY 06/16/2015 HECTOR WALKER MD Ot I27. 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 [...] CHR AIRWAY OBSTRUCT NEC 01/24/2016 WENDIE MORENO EXTRACORPOREAL TECHNICIAN Ot 780.60 FEVER, UNSPECIFIED 01/24/2016 WENDIE MORENO EXTRACORPOREAL TECHNICIAN Ot 786.2 COUGH 01/24/2016 CARISSA BROWNE MD [...] HENRY Ot I25.10 ATHSCL HEART DISEASE OF [place] CORONARY 01/27/2016 CHUCK HENRY Ot I44.7 LEFT BUNDLE-BRANCH BLOCK, UNSPECIFIED 01/28/2016 CHUCK HENRY Ot E78.0 PURE HYPERCHOLESTEROLEMIA 01/28/2016 CHUCK HENRY Ot G47.33 OBSTRUCTIVE SLEEP APNEA (ADULT) (PEDIATR 01/28/2016 CHUCK HENRY Ot I25.10 ATHSCL HEART DISEASE OF [place] CORONARY 01/28/2016 DURAN-TIFFANIE PA, CHUCK K Ot I44.7 LEFT BUNDLE-BRANCH BLOCK, UNSPECIFIED 02/18/2016 CHUCK HENRY Ot E78.0 PURE HYPERCHOLESTEROLEMIA 02/18/2016 CHUCK HENRY Ot G47.33 OBSTRUCTIVE SLEEP APNEA (ADULT) (PEDIATR 02/18/2016 CHUCK HENRY Ot I25.10 ATHSCL HEART DISEASE OF [place] CORONARY 02/18/2016 CHUCK HENRY Ot I44.7 LEFT BUNDLE-BRANCH BLOCK, UNSPECIFIED 02/21/2016 CHUCK HENRY Ot E78.0 PURE HYPERCHOLESTEROLEMIA 02/21/2016 CHUCK HENRY Ot G47.33 OBSTRUCTIVE SLEEP APNEA (ADULT) (PEDIATR 02/21/2016 CHUCK HENRY Ot I25.10 ATHSCL HEART DISEASE OF [place] CORONARY 02/21/2016 CHUCK HENRY Ot I44.7 LEFT BUNDLE-BRANCH BLOCK, UNSPECIFIED 08/04/2016 Ot 611.72 LUM P OR MASS IN BREAST 08/04/2016 Ot V76.12 OTH SCREEN MAMMO- MALIGN NEOPLASM OF [place] 08/04/2016 Ot V76.12 OTH SCREEN MAMMO- MALIGN NEOPLASM OF [place] 08/04/2016 Ot 401.9 HYPE RTENSION NOS 08/04/2016 Ot 414.01 COR ONARY ATHEROSCLEROSIS OF [place] CORON 08/04/2016 Ot 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 [...] CHUCK HENRY Ot 401.9 HYPERTENSION NOS 08/04/2016 CHUCK HENRY Ot 414.00 CORON ATHEROSCLER NOS [...] HENRY Ot I25.10 ATHSCL HEART DISEASE OF [place] CORONARY 08/04/2016 CHUCK HENRY Ot I44.7 LEFT BUNDLE-BRANCH BLOCK, UNSPECIFIED 08/04/2016 WENDIE MORENO APRN Ot Z12.31 ENCNTR SCREEN MAMMOGRAM FOR MALIGNANT NE 08/04/2016 WENDIE MORENO APRN Ot Z12.31 ENCNTR SCREEN MAMMOGRAM FOR MALIGNANT NE 08/04/2016 WENDIE MORENO APRN Ot Z12.31 ENCNTR SCREEN MAMMOGRAM FOR MALIGNANT NE 08/05/2016 WENDIE MORENO APRN Ot Z12.31 ENCNTR SCREEN MAMMOGRAM FOR MALIGNANT NE 08/10/2016 TIFFANIEZAIDN R EXTRACORPOREAL TECHNICIAN Ot Z12.31 ENCNTR SCREEN MAMMOGRAM FOR MALIGNANT NE 08/26/2016 DONTA SANCHEZ, CHUCK K Ot I25.10 ATHSCL HEART DISEASE OF [place] CORONARY 08/26/2016 TIFFANIEZAIDPreston Monroy EXTRACORPOREAL TECHNICIAN Ot Z12.31 ENCNTR SCREEN MAMMOGRAM FOR MALIGNANT NE 08/27/2016 DONTA SANCHEZ, CHUCK K Ot I10 ESSENTIAL (PRIMARY) HYPERTENSION 08/27/2016 DONTA SANCHEZ, CHUCK K Ot I25.10 ATHSCL HEART DISEASE OF [place] CORONARY 08/27/2016 DONTA SANCHEZ, CHUCK K Ot I44.7 LEFT BUNDLE-BRANCH BLOCK, UNSPECIFIED 08/27/2016 DONTA SANCHEZ, CHUCK K Ot R06.00 DYSPNEA, UNSPECIFIED 08/27/2016 DONTA SANCHEZ, CHUCK K Ot I10 ESSENTIAL (PRIMARY) HYPERTENSION 08/27/2016 DONTA SANCHEZ, CHUCK K Ot I25.10 ATHSCL HEART DISEASE OF [place] CORONARY 08/27/2016 DONTA SANCHEZ, CHUCK K Ot I44.7 LEFT BUNDLE-BRANCH BLOCK, UNSPECIFIED 08/27/2016 DONTA SANCHEZ, CHUCK K Ot R06.00 DYSPNEA, UNSPECIFIED 09/21/2016 DONTA SANCHEZ, CHUCK K Ot I10 ESSENTIAL (PRIMARY) HYPERTENSION 09/21/2016 DONTA SANCHEZ, CHUCK K Ot I25.10 ATHSCL HEART DISEASE OF [place] CORONARY 09/21/2016 DONTA SANCHEZ, CHUCK K Ot I44.7 LEFT BUNDLE-BRANCH BLOCK, UNSPECIFIED 09/21/2016 DONTA SANCHEZ, CHUCK K Ot R06.00 DYSPNEA, UNSPECIFIED 09/23/2016 DONTA SANCHEZ, CHUCK K Ot I10 ESSENTIAL (PRIMARY) HYPERTENSION 09/23/2016 DONTA SANCHEZ, CHUCK K Ot I25.10 ATHSCL HEART DISEASE OF [place] CORONARY 09/23/2016 DONTA SANCHEZ, CHUCK K Ot I44.7 LEFT [...] CHR AIRWAY OBSTRUCT NEC 06/23/2018 WENDIE MORENO EXTRACORPOREAL TECHNICIAN Ot 780.60 FEVER, UNSPECIFIED 06/23/2018 WENDIE MORENO R EXTRACORPOREAL TECHNICIAN Ot 786.2 COUGH 06/23/2018 CARISSA BROWNE MD [...] HENRY Ot I25.10 ATHSCL HEART DISEASE OF [place] CORONARY 06/23/2018 CHUCK HENRY Ot I44.7 LEFT BUNDLE-BRANCH BLOCK, UNSPECIFIED 06/23/2018 DONTA SANCHEZ CHUCK K Ot I10 ESSENTIAL (PRIMARY) HYPERTENSION 06/23/2018 DONTA SANCHEZ CHUCK K Ot I25.10 ATHSCL HEART DISEASE OF [place] CORONARY 06/23/2018 CHUCK HENRY Ot I44.7 LEFT [...] Ot 780.60 FEVER, UNSPECIFIED 06/24/2018 WENDIE MORENO EXTRACORPOREAL TECHNICIAN Ot 786.2 COUGH 06/24/2018 CARISSA BROWNE MD [...] HENRY Ot I25.10 ATHSCL HEART DISEASE OF [place] CORONARY 06/24/2018 CHUCK HENRY Ot I44.7 LEFT BUNDLE-BRANCH BLOCK, UNSPECIFIED 06/24/2018 CHUCK HENRY Ot I10 ESSENTIAL (PRIMARY) HYPERTENSION 06/24/2018 CHUCK HENRY Ot I25.10 ATHSCL HEART DISEASE OF [place] CORONARY 06/24/2018 CHUCK HENRY Ot I44.7 LEFT [...] CHR AIRWAY OBSTRUCT NEC 01/12/2019 WENDIE MORENO EXTRACORPOREAL TECHNICIAN Ot 780.60 FEVER, UNSPECIFIED 01/12/2019 WENDIE MORENO EXTRACORPOREAL TECHNICIAN Ot 786.2 COUGH 01/12/2019 CARISSA BROWNE MD [...] HENRY Ot I25.10 ATHSCL HEART DISEASE OF [place] CORONARY 01/12/2019 CHUCK HENRY Ot I44.7 LEFT BUNDLE-BRANCH BLOCK, UNSPECIFIED 01/12/2019 CHUCK HENRY Ot I10 ESSENTIAL (PRIMARY) HYPERTENSION 01/12/2019 CHUCK HENRY Ot I25.10 ATHSCL HEART DISEASE OF [place] CORONARY 01/12/2019 CHUCK HENRY Ot I44.7 LEFT BUNDLE-BRANCH BLOCK, UNSPECIFIED 01/12/2019 CHUCK HENRY Ot R06.00 DYSPNEA, UNSPECIFIED 01/12/2019 WENDIE MORENO EXTRACORPOREAL TECHNICIAN Ot Z12.31 ENCNTR SCREEN MAMMOGRAM FOR MALIGNANT NE 01/12/2019 CARISSA BROWNE MD Ot Z12.3 1 ENCNTR SCREEN MAMMOGRAM FOR MALIGNANT NE 01/13/2019 TIFFANIEZAIDPreston Monroy EXTRACORPOREAL TECHNICIAN Ot 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, 01/13/2019 TIFFANIE WENDIE Monroy EXTRACORPOREAL TECHNICIAN Ot 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 01/13/2019 TIFFANIEZAIDPreston Monroy EXTRACORPOREAL TECHNICIAN Ot R90.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, UNSPECIFIED 01/13/2019 TIFFANIEZAIDPreston Monroy EXTRACORPOREAL TECHNICIAN Ot W19.XXXA UNSPECIFIED FALL, INITIAL ENCOUNTER 01/13/2019 TIFFANIE WENDIE Monroy EXTRACORPOREAL TECHNICIAN Ot W22.09XA STRIKING AGAINST OTHER STATIONARY OBJECT 01/13/2019 TIFFANIEZAIDN R EXTRACORPOREAL TECHNICIAN Ot Y92.[address] IN [facility] NON-INSTITUT (PRIVATE 02/02/2019 TIFFANIE WENDIE Monroy EXTRACORPOREAL TECHNICIAN Ot 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, 02/02/2019 WENDIE MORENO EXTRACORPOREAL TECHNICIAN Ot 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 02/02/2019 WENDIE MORENO EXTRACORPOREAL TECHNICIAN Ot R90.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, UNSPECIFIED 02/02/2019 TIFFANIE WENDIE Monroy EXTRACORPOREAL TECHNICIAN Ot W19.XXXA UNSPECIFIED FALL, INITIAL ENCOUNTER 02/02/2019 TIFFANIEZAIDN R EXTRACORPOREAL TECHNICIAN Ot W22.09XA STRIKING AGAINST OTHER STATIONARY OBJECT 02/02/2019 TIFFANIEZAIDN R EXTRACORPOREAL TECHNICIAN Ot Y92.[address] [facility] NON-INST[facility]UT (PRIVATE 02/09/2019 TIFFANIEZAIDPreston Monroy EXTRACORPOREAL TECHNICIAN Ot 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, 02/09/2019 TIFFANIE WENDIE Monroy EXTRACORPOREAL TECHNICIAN Ot 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 02/09/2019 TIFFANIE WENDIE Monroy EXTRACORPOREAL TECHNICIAN Ot R90.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, UNSPECIFIED 02/09/2019 WENDIE MORENO EXTRACORPOREAL TECHNICIAN Ot W19.XXXA UNSPECIFIED FALL, INITIAL ENCOUNTER 02/09/2019 TIFFANIEZAIDPreston Monroy EXTRACORPOREAL TECHNICIAN Ot W22.09XA STRIKING AGAINST OTHER STATIONARY OBJECT 02/09/2019 WENDIE MORENO EXTRACORPOREAL TECHNICIAN Ot Y92.[address] IN [facility] NON-INSTITUT (PRIVATE 02/24/2019 CHUCK HENRY Ot E78.5 HYPERLIPIDEMIA, UNSPECIFIED 02/24/2019 CHUCK HENRY Ot I10 ESSENTIAL (PRIMARY) HYPERTENSION 02/24/2019 CHUCK HENRY Ot I25.10 ATHSCL HEART DISEASE OF [place] CORONARY 02/24/2019 CHUCK HENRY Ot I44.7 LEFT [...] MD, Ot I25.10 ATHSCL HEART DISEASE OF [place] CORONARY 03/13/2019 VINH MULLIGAN MD, Ot J44.9 CHRONIC OBSTRUCTIVE PULMONARY DISEASE, U 03/13/2019 VINH MULLIGAN MD Ot K21.9 GASTRO-ESOPHAGEAL REFLUX DISEASE WITHOUT 03/13/2019 VINH MULLIGAN MD Ot K58.9 IRRITABLE BOWEL 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 03/13/2019 VINH MULLIGAN MD Ot R09.81 NASAL CONGESTION 03/13/2019 VINH MULLIGAN MD Ot R51 HEADACHE 03/13/2019 VINH MULLIGAN MD Ot R53.1 WEAKNESS 03/13/2019 VINH MULLIGAN MD, Ot Z79.82 TELEPHONE SERVICE REPRESENTATIVE (CURRENT) USE OF ASPIRIN 03/13/2019 VINH MULLIGAN [...] MULLIGAN MD Ot E86.1 HYPOVOLEMIA 03/15/2019 VINH UMLLIGAN MD Ot F41.9 ANXIETY DISORDER, UNSPECIFIED 03/15/2019 VINH MULLIGAN MD Ot I10 ESSENTIAL (PRIMARY) HYPERTENSION 03/15/2019 VINH MULLIGAN MD Ot I25.10 ATHSCL HEART DISEASE OF [place] CORONARY 03/15/2019 VINH MULLIGAN MD Ot J44.9 CHRONIC OBSTRUCTIVE PULMONARY DISEASE, U 03/15/2019 VINH MULLIGAN MD Ot K21.9 GASTRO-ESOPHAGEAL REFLUX DISEASE WITHOUT 03/15/2019 VINH MULLIGAN MD Ot K58.9 IRRITABLE BOWEL 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 03/15/2019 VINH MULLIGAN MD Ot R09.81 NASAL CONGESTION 03/15/2019 VINH MULLIGAN MD Ot R51 HEADACHE 03/15/2019 VINH MULLIGAN MD Ot R53.1 WEAKNESS 03/15/2019 VINH MULLIGAN MD Ot Z79.82 SHELTER (CURRENT) USE OF ASPIRIN 03/15/2019 VINH MULLIGAN [...] STATUS TO OTH DRUG/MEDS/BIOL SUB 03/17/2019 CARISSA BORWNE MD Ot R05 COUGH 03/17/2019 CARISSA BROWNE MD Ot R06.0 2 SHORTNESS OF BREATH 03/20/2019 DONTA SANCHEZ, CHUCK K Ot E78.5 HYPERLIPIDEMIA, UNSPECIFIED 03/20/2019 DURANISI SANCHEZ, CHUCK K Ot I10 ESSENTIAL (PRIMARY) HYPERTENSION 03/20/2019 DONTA SANCHEZ, CHUCK K Ot I25.10 ATHSCL HEART DISEASE OF [place] CORONARY 03/20/2019 DONTA SANCHEZ, CHUCK K Ot [...] K Ot I25.10 ATHSCL HEART DISEASE OF [place] CORONARY 03/22/2019 DURANISI SANCHEZ, CHUCK K Ot [...] APRN Ot I25.10 ATHSCL HEART DISEASE OF [place] CORONARY 06/12/2019 CEDRICK BLANC APRN Ot J44 [...] (PRIVATE 06/12/2019 CEDRICK BLANC APRN Ot Z79.82 SHELTER (CURRENT) USE OF ASPIRIN 06/12/2019 CEDRICK BLANC [...] .5 PRESENCE OF CORONARY ANGIOPLASTY IMPLANT 07/11/2019 SFOY WOLF MD Ot E78.00 PURE HYPERCHOLESTEROLEMIA, UNSPECIFIED 07/11/2019 SOFY WOLF MD Ot E87.1 HYPO-OSMOLALITY AND HYPONATREMIA 07/11/2019 SOFY WOLF MD Ot F41.9 ANXIETY DISORDER, UNSPECIFIED 07/11/2019 SOFY WOLF MD Ot I10 ESSENTIAL (PRIMARY) HYPERTENSION 07/11/2019 SOFY WOLF MD Ot I25.10 ATHSCL HEART DISEASE OF [place] CORONARY 07/11/2019 SOFY WOLF MD Ot J44.9 CHRONIC OBSTRUCTIVE PULMONARY DISEASE, U 07/11/2019 SOFY WOLF MD Ot K21.9 GASTRO-ESOPHAGEAL REFLUX DISEASE WITHOUT 07/11/2019 SOFY WOLF MD Ot K58.9 IRRITABLE BOWEL 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 07/11/2019 SOFY WOLF MD Ot R53.1 WEAKNESS 07/11/2019 SOFY WOLF MD, Ot Z79.82 SHELTER (CURRENT) USE OF ASPIRIN 07/11/2019 SOFY WOLF [...] MD, Ot I25.10 ATHSCL HEART DISEASE OF [place] CORONARY 07/18/2019 SOFY WOLF MD, Ot J44.9 CHRONIC OBSTRUCTIVE PULMONARY DISEASE, U 07/18/2019 SOFY WOLF MD, Ot K21.9 GASTRO-ESOPHAGEAL REFLUX DISEASE WITHOUT 07/18/2019 SOFY WOLF MD, Ot K58.9 IRRITABLE BOWEL 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 07/18/2019 SOFY WOLF MD, Ot R53.1 WEAKNESS 07/18/2019 SOFY WOLF MD, Ot Z79.82 TELEPHONE SERVICE REPRESENTATIVE (CURRENT) USE OF ASPIRIN 07/18/2019 SOFY WOLF [...] MD, Ot I25.10 ATHSCL HEART DISEASE OF [place] CORONARY 07/22/2019 SOFY WOLF MD, Ot J44.9 CHRONIC OBSTRUCTIVE PULMONARY DISEASE, U 07/22/2019 SOFY WOLF MD, Ot K21.9 GASTRO-ESOPHAGEAL REFLUX DISEASE WITHOUT 07/22/2019 SOFY WOLF MD, Ot K58.9 IRRITABLE BOWEL 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 07/22/2019 SOFY WOLF MD Ot R53.1 WEAKNESS 07/22/2019 SOFY WOLF MD, Ot Z79.82 SHELTER (CURRENT) USE OF ASPIRIN 07/22/2019 SOFY WOLF [...] PERSONAL HISTORY OF (HEALED) TRAUMATIC F 11/05/2019 [facility] PA, CHUCK K Ot I08.1 RHEUMATIC DISORDERS OF BOTH MITRAL AND T 11/05/2019 [facility] PA, CHUCK K Ot I10 ESSENTIAL (PRIMARY) HYPERTENSION 11/05/2019 [facility] PA, CHUCK K Ot I25.10 ATHSCL HEART DISEASE OF [place] CORONARY 11/05/2019 [facility] PA, CHUCK K Ot I27.20 PULMONARY HYPERTENSION, UNSPECIFIED 11/05/2019 [facility] PA, CHUCK K Ot I44.7 LEFT BUNDLE-BRANCH BLOCK, UNSPECIFIED 11/07/2019 [facility] PA, CHUCK K Ot I08.1 RHEUMATIC DISORDERS OF BOTH [place] AND T 11/07/2019 [facility] PA, CHUCK K Ot I10 ESSENTIAL (PRIMARY) HYPERTENSION 11/07/2019 [facility] PA, CHUCK K Ot I25.10 ATHSCL HEART DISEASE OF [place] CORONARY 11/07/2019 [facility] PA, CHUCK K Ot I27.20 PULMONARY HYPERTENSION, UNSPECIFIED 11/07/2019 [facility] PA, CHUCK K Ot I44.7 LEFT BUNDLE-BRANCH BLOCK, UNSPECIFIED 11/08/2019 [facility] PA, CHUCK K Ot I08.1 RHEUMATIC DISORDERS OF BOTH [place] AND T 11/08/2019 [facility] PA, CHUCK K Ot I10 ESSENTIAL (PRIMARY) HYPERTENSION 11/08/2019 [facility] PA, CHUCK K Ot I25.10 ATHSCL HEART DISEASE OF [place] CORONARY 11/08/2019 [facility] PA, CHUCK K Ot I27.20 PULMONARY HYPERTENSION, UNSPECIFIED 11/08/2019 [facility] PA, CHUCK K Ot I44.7 LEFT BUNDLE-BRANCH BLOCK, UNSPECIFIED 11/28/2019 [facility] PA, CHUCK K Ot I08.1 RHEUMATIC DISORDERS OF BOTH [place] AND T 11/28/2019 [facility] PA, CHUCK K Ot I10 ESSENTIAL (PRIMARY) HYPERTENSION 11/28/2019 [facility] PA, CHUCK K Ot I25.10 ATHSCL HEART DISEASE OF [place] CORONARY 11/28/2019 [facility] LAURA, CHUCK Montes Ot I27.20 PULMONARY HYPERTENSION, UNSPECIFIED 11/28/2019 [facility] LAURA, CHUCK Montes Ot I44.7 LEFT BUNDLE-BRANCH BLOCK, UNSPECIFIED 12/01/2019 [facility] LAURA, CHUCK Montes Ot I08.1 RHEUMATIC DISORDERS OF BOTH MITRAL AND T 12/01/2019 [facility], CHUCK Montes Ot I10 ESSENTIAL (PRIMARY) HYPERTENSION 12/01/2019 [facility], CHUCK Montes Ot I25.10 ATHSCL HEART DISEASE OF [place] CORONARY 12/01/2019 [facility], CHUCK Montes Ot I27.20 PULMONARY HYPERTENSION, UNSPECIFIED 12/01/2019 [facility] LAURA, CHUCK Montes Ot I44.7 LEFT BUNDLE-BRANCH BLOCK, UNSPECIFIED 01/28/2020 CEDRICK BLANC APRN Ot E78.00 PURE HYPERCHOLESTEROLEMIA, UNSPECIFIED 01/28/2020 CEDRICK BLANC APRN Ot F41 .9 ANXIETY DISORDER, UNSPECIFIED 01/28/2020 CEDRICK BLANC APRN Ot I10 ESSENTIAL (PRIMARY) HYPERTENSION 01/28/2020 CEDRICK BLANC APRN Ot I25.10 ATHSCL HEART DISEASE OF [place] CORONARY 01/28/2020 CEDRICK BLANC APRN Ot J44 .9 CHRONIC OBSTRUCTIVE PULMONARY DISEASE, U 01/28/2020 CEDRICK BLANC APRN Ot K21 .9 GASTRO-ESOPHAGEAL REFLUX DISEASE WITHOUT 01/28/2020 CEDRICK BLANC APRN Ot R40.2142 COMA SCALE, EYES OPEN, SPONTANEOUS, EMR 01/28/2020 CEDRICK BLANC APRN Ot R40.2252 COMA SCALE, BEST VERBAL RESPONSE, ORIENT 01/28/2020 CEDRICK BLANC APRN Ot R40.2362 COMA SCALE, BEST MOTOR RESPONSE, OBEYS C 01/28/2020 CEDRICK BLANC APRN Ot R51 HEADACHE 01/28/2020 CEDRICK BLANC APRN Ot S00.03XA CONTUSION OF SCALP, INITIAL ENCOUNTER 01/28/2020 CEDRICK BLANC APRN Ot S06.0X0A CONCUSSION WITHOUT LOSS OF CONSCIOUSNESS 01/28/2020 CEDRICK BLANC APRN Ot W10.1XXA FALL (ON)(FROM) SIDEWALK CURB, INITIAL E 01/28/2020 CEDRICK BLANC APRN Ot W22.8XXA STRIKING AGAINST OR STRUCK BY OTHER OBJE 01/28/2020 CEDRICK BLANC APRN Ot Y92.[address] [facility] (PRIVATE 01/28/2020 CEDRICK BLANC APRN Ot Z79.82 SHELTER (CURRENT) USE OF ASPIRIN 01/28/2020 CEDRICK BLANC APRN Ot Z80 .0 FAMILY HISTORY OF MALIGNANT NEOPLASM OF 01/28/2020 CEDRICK BLANC APRN Ot Z80 .1 FAMILY HISTORY OF MALIG NEOPLASM OF [place] 01/28/2020 CEDRICK BLANC APRN Ot Z80.42 FAMILY HISTORY OF MALIGNANT NEOPLASM OF 01/28/2020 CEDRICK BLANC APRN Ot Z86.010 PERSONAL HISTORY OF COLONIC POLYPS 01/28/2020 CEDRICK BLANC APRN Ot Z88 .0 ALLERGY STATUS TO PENICILLIN 01/28/2020 CEDRICK BLANC APRN Ot Z88 .8 ALLERGY STATUS TO OTH DRUG/MEDS/BIOL SUB 01/28/2020 CEDRICK BLANC APRN Ot Z95 .5 PRESENCE OF CORONARY ANGIOPLASTY IMPLANT 03/25/2020 VINH MULLIGAN MD Ot E78.00 PURE HYPERCHOLESTEROLEMIA, UNSPECIFIED 03/25/2020 VINH MULLIGAN MD Ot F41.9 ANXIETY DISORDER, UNSPECIFIED 03/25/2020 VINH MULLIGAN MD Ot I10 ESSENTIAL (PRIMARY) HYPERTENSION 03/25/2020 VINH MULLIGAN MD Ot I25.10 ATHSCL HEART DISEASE OF [place] CORONARY 03/25/2020 VINH MULLIGAN MD Ot J44.9 CHRONIC OBSTRUCTIVE PULMONARY DISEASE, U 03/25/2020 VINH MULLIGAN MD Ot K21.9 GASTRO-ESOPHAGEAL REFLUX DISEASE WITHOUT 03/25/2020 VINH MULLIGAN MD Ot R06.02 SHORTNESS OF BREATH 03/25/2020 VINH MULLIGAN MD Ot R11.0 NAUSEA 03/25/2020 VINH MULLIGAN MD Ot R53.1 WEAKNESS 03/25/2020 VINH MULLIGAN MD Ot Z20.828 CONTACT W AND EXPOSURE TO OTH VIRAL COMM 03/25/2020 VINH MULLIGAN MD, Ot Z79.82 SHELTER (CURRENT) USE OF ASPIRIN 03/25/2020 VINH MULLIGAN MD, Ot Z80.0 FAMILY HISTORY OF MALIGNANT NEOPLASM OF 03/25/2020 VINH MULLIGAN MD, Ot Z80.1 FAMILY HISTORY OF MALIG NEOPLASM OF [place] 03/25/2020 VINH MULLIGAN MD, Ot Z80.42 FAMILY HISTORY OF MALIGNANT NEOPLASM OF 03/25/2020 IVNH MULLIGAN MD, Ot Z88.0 ALLERGY STATUS TO PENICILLIN 03/25/2020 VINH MULLIGAN MD, Ot Z88.8 ALLERGY STATUS TO OTH DRUG/MEDS/BIOL SUB 03/25/2020 VINH MULLIGAN MD, Ot Z91.14 PATIENT'S OTHER NONCOMPLIANCE WITH MEDIC 03/25/2020 VINH MULLIGAN MD, Ot Z95.5 PRESENCE OF CORONARY ANGIOPLASTY IMPLANT 03/28/2020 VINH MULLIGAN MD Ot E78.00 PURE HYPERCHOLESTEROLEMIA, UNSPECIFIED 03/28/2020 VINH MULLIGAN MD, Ot F41.9 ANXIETY DISORDER, UNSPECIFIED 03/28/2020 VINH MULLIGAN MD, Ot I10 ESSENTIAL (PRIMARY) HYPERTENSION 03/28/2020 VINH MULLIGAN MD, Ot I25.10 ATHSCL HEART DISEASE OF [place] CORONARY 03/28/2020 VINH MULLIGAN MD, Ot J44.9 CHRONIC OBSTRUCTIVE PULMONARY DISEASE, U 03/28/2020 VINH MULLIGAN MD, Ot K21.9 GASTRO-ESOPHAGEAL REFLUX DISEASE WITHOUT 03/28/2020 VINH MULLIGAN MD Ot R06.02 SHORTNESS OF BREATH 03/28/2020 VINH MULLIGAN MD Ot R11.0 NAUSEA 03/28/2020 VINH MULLIGAN MD Ot R53.1 WEAKNESS 03/28/2020 VINH MULLIGAN MD, Ot Z20.828 CONTACT W AND EXPOSURE TO OTH VIRAL COMM 03/28/2020 VINH MULLIGAN MD Ot Z79.82 SHELTER (CURRENT) USE OF ASPIRIN 03/28/2020 VINH MULLIGAN MD Ot Z80.0 FAMILY HISTORY OF MALIGNANT NEOPLASM OF 03/28/2020 VINH MULLIGAN MD Ot Z80.1 FAMILY HISTORY OF MALIG NEOPLASM OF [place] 03/28/2020 VINH MULLIGAN MD, Ot Z80.42 FAMILY HISTORY OF MALIGNANT NEOPLASM OF 03/28/2020 VINH MULLIGAN MD Ot Z88.0 ALLERGY STATUS TO PENICILLIN 03/28/2020 VINH MULLIGAN MD Ot Z88.8 ALLERGY STATUS TO OTH DRUG/MEDS/BIOL SUB 03/28/2020 VINH MULLIGAN MD Ot Z91.14 PATIENT'S OTHER NONCOMPLIANCE WITH MEDIC 03/28/2020 VINH MULLIGAN MD Ot Z95.5 PRESENCE OF CORONARY ANGIOPLASTY IMPLANT 03/29/2020 CARISSA BROWNE MD Ot F32.9 MAJOR DEPRESSIVE DISORDER, SINGLE EPISOD 03/29/2020 CARISSA BROWNE MD Ot H91.9 0 UNSPECIFIED HEARING LOSS, UNSPECIFIED EA 03/29/2020 CARISSA BROWNE MD Ot I10 ESSENTIAL (PRIMARY) HYPERTENSION 03/29/2020 CARISSA BROWNE MD Ot J45.9 09 UNSPECIFIED ASTHMA, UNCOMPLICATED 03/29/2020 CARISSA BROWNE MD Ot R26.9 UNSPECIFIED ABNORMALITIES OF GAIT AND MO 03/29/2020 CARISSA BROWNE MD Ot R53.1 WEAKNESS 03/29/2020 CARISSA BROWNE MD Ot Z91.8 1 HISTORY OF FALLING 03/29/2020 CARISSA BROWNE MD Ot Z95.8 28 PRESENCE OF OTHER VASCULAR IMPLANTS AND 03/29/2020 VINH MULLIGAN MD Ot E78.00 PURE HYPERCHOLESTEROLEMIA, UNSPECIFIED 03/29/2020 VINH MULLIGAN MD Ot F41.9 ANXIETY DISORDER, UNSPECIFIED 03/29/2020 VINH MULLIGAN MD Ot I10 ESSENTIAL (PRIMARY) HYPERTENSION 03/29/2020 VINH MULILGAN MD Ot I25.10 ATHSCL HEART DISEASE OF [place] CORONARY 03/29/2020 VINH MULLIGAN MD Ot J44.9 CHRONIC OBSTRUCTIVE PULMONARY DISEASE, U 03/29/2020 VINH MULLIGAN MD Ot K21.9 GASTRO-ESOPHAGEAL REFLUX DISEASE WITHOUT 03/29/2020 VINH MULLIGAN MD, Ot R06.02 SHORTNESS OF BREATH 03/29/2020 VINH MULLIGAN MD, Ot R11.0 NAUSEA 03/29/2020 VINH MULLIGAN MD, Ot R53.1 WEAKNESS 03/29/2020 VINH MULLIGAN MD, Ot Z20.828 CONTACT W AND EXPOSURE TO OTH VIRAL COMM 03/29/2020 VINH MULLIGAN MD, Ot Z79.82 SHELTER (CURRENT) USE OF ASPIRIN 03/29/2020 VINH MULLIGAN MD, Ot Z80.0 FAMILY HISTORY OF MALIGNANT NEOPLASM OF 03/29/2020 VINH MULLIGAN MD, Ot Z80.1 FAMILY HISTORY OF MALIG NEOPLASM OF [place] 03/29/2020 VINH MULLIGAN MD, Ot Z80.42 FAMILY HISTORY OF MALIGNANT NEOPLASM OF 03/29/2020 VINH MULLIGAN MD, Ot Z88.0 ALLERGY STATUS TO PENICILLIN 03/29/2020 VINH MULLIGAN MD, Ot Z88.8 ALLERGY STATUS TO OTH DRUG/MEDS/BIOL SUB 03/29/2020 VINH MULLIGAN MD, Ot Z91.14 PATIENT'S OTHER NONCOMPLIANCE WITH MEDIC 03/29/2020 VINH MULLIGAN MD, Ot Z95.5 PRESENCE OF CORONARY ANGIOPLASTY IMPLANT Procedures There is no data. Results Test [...] culture - 03/13/19 11:09 Bacterial urine culture [id number] NRG COLONY COUNT <10,000 NRG Complete blood [...] urinalysis with reflex to culture NO NRG Complete blood count (CBC) with automate d white blood cell (WBC) differential - 03/22/20 03:10 Blood leukocytes automated count (number/volume) 4.8 10*3/uL 4.3-11.0 Blood erythrocytes automated count (number/volume) 4.38 10*6/uL 4.35-5.85 Venous blood hemoglobin measurement (mass/volume) 12.6 g/dL 11.5-16.0 Blood hematocrit (volume fraction) 37 % 35-52 Automated erythrocyte mean corpuscular volume 85 [ foz_us] 80-99 Automated erythrocyte mean corpuscular h emoglobin (mass per erythrocyte) 29 pg 25-34 Automated erythrocyte mean corpuscular h emoglobin concentration measurement (mass/volume) 34 g/dL 32-36 Automated erythrocyte distribution width ratio 13. 7 % 10.0- 14.5 Automated blood platelet count (count/volume) 276 10*3/uL 130-400 Automated blood platelet mean volume measurement 8.5 [foz_us] 7.4-10.4 Automated blood neutrophils/100 leukocytes 55 % 42-75 Automated blood lymphocytes/100 leukocytes 25 % 12-44 Blood monocytes/100 leukocytes 15 % 0-12 Automated blood eosinophils/100 leukocytes 4 % 0-10 Automated blood basophils/100 leukocytes 1 % 0-10 Blood neutrophils automated count (number/volume) 2.6 10*3 1.8-7.8 Blood lymphocytes automated count (number/volume) 1.2 10*3 1.0-4.0 Blood monocytes automated count (number/volume) 0. 7 10*3 0.0-1.0 Automated eosinophil count 0.2 10*3/uL 0 .0-0.3 Automated blood basophil count (count/volume) 0.1 10*3/uL 0.0-0.1 Comprehensive metabolic panel - 03/22/20 03:10 Serum or plasma sodium measurement (moles/volume) 130 mmol/L 135-145 Serum or plasma potassium measurement (moles/volume) 4.5 mmol/L 3.6-5.0 Serum or plasma chloride measurement (moles/volume) 97 mmol/L 98-107 Carbon dioxide 21 mmol/L 21-32 Serum or plasma anion gap determination (moles/volume) 12 mmol/L 5-14 Serum or plasma urea nitrogen measurement (mass/volume ) 11 mg/dL 7-18 Serum or plasma creatinine measurement (mass/volume) 0.99 mg/dL 0.60-1.30 Serum or plasma urea nitrogen/creatinine mass ratio 11 NRG Serum or plasma creatinine measurement w ith calculation of estimated glomerular filtration rate 53 NRG Serum or plasma glucose measurement (mass/volume) 92 mg/dL 70-105 Serum or plasma calcium measurement (mass/volume) 9.2 mg/dL 8.5-10.1 Serum or plasma total bilirubin measurement (mass/volu me) 0.4 mg/dL 0.1-1.0 Serum or plasma alkaline phosphatase jodi surement (enzymatic activity/volume) 56 U/L 40-136 Serum or plasma aspartate aminotransfera se measurement (enzymatic activity/volume) 20 U/L 5-34 Serum or plasma alanine aminotransferase measurement (enzymatic activity/volume) 15 U/L 0-55 Serum or plasma protein measurement (mass/volume) 7.0 g/dL 6.4-8.2 Serum or plasma albumin measurement (mass/volume) 4.2 g/dL 3.2-4.5 CALCIUM CORRECTED 9.0 mg/dL 8.5-10.1 PT panel in platelet poor plasma by coag ulation assay - 03/22/20 03:10 Prothrombin time (PT) in platelet poor plasma by coagu lation assay 12.9 s 12.2-14.7 INR in platelet poor plasma or blood by coagulation as say 0.9 0.8-1.4 Activated partial thromboplastin time (a PTT) in platelet poor plasma bycoagulation assay - 03/22/20 03:10 Activated partial thromboplastin time (a PTT) in platelet poor plasma bycoagulation assay 27 s 24-35 Serum or plasma troponin i.cardiac measu rement (mass/volume) - 03/22/20 03:10 Serum or plasma troponin i.cardiac measurement (mass/v olume) < ng/mL <0.028 Magnesium - 03/22/20 03:10 Magnesium 1.8 mg/dL 1.6-2.4 Serum or plasma lithium measurement (mol es/volume) - 03/22/20 03:10 BNP PT 170.1 pg/mL <100.0 Myoglobin, serum - 03/22/20 03:10 Myoglobin, serum 61.8 ng/mL 10.0-92.0 Serum or plasma C reactive protein measu rement (mass/volume) - 03/22/20 03:10 Serum or plasma C reactive protein measurement (mass/v olume) 0.13 mg/dL 0.00-0.50 Serum or plasma thyrotropin measurement by detection limit <=0.05 miu/l (units/volume) - 03/22/20 03:10 Serum or plasma thyrotropin measurement by detection limit <=0.05 miu/l (units/volume) 2.45 u[iU]/mL 0.35-4.94 Coronavirus SARS-CoV-2 SO 2018 - 0 03:12 Coronavirus Ab [Units/volume] in Serum Negative Negative Complete urinalysis with reflex to cultu re - 03/22/20 03:50 Urine color determination YELLOW NRG Urine clarity determination CLEAR NR G Urine pH measurement by test strip 8.5 5-9 Specific gravity of urine by test [...] urobilinogen measurement by automated test strip (mass/volume) 0.2 mg/dL < = 1.0 Urine leukocyte esterase detection by dipstick NEG ATIVE NEGATIVE Automated urine sediment erythrocyte cou nt by microscopy (number/high power field) NONE NRG Automated urine sediment leukocyte count by [...] urinalysis with reflex to culture NO NRG Comprehensive metabolic panel - 03/31/20 03:45 Serum or plasma sodium measurement (moles/volume) 127 mmol/L 135-145 Serum or plasma potassium measurement (moles/volume) 4.3 mmol/L 3.6-5.0 Serum or plasma chloride measurement (moles/volume) 94 mmol/L 98-107 Carbon dioxide 20 mmol/L 21-32 Serum or plasma anion gap determination (moles/volume) 13 mmol/L 5-14 Serum or plasma urea nitrogen measurement (mass/volume ) 22 mg/dL 7-18 Serum or plasma creatinine measurement (mass/volume) 0.83 mg/dL 0.60-1.30 Serum or plasma urea nitrogen/creatinine mass ratio 27 NRG Serum or plasma creatinine measurement w ith calculation of estimated glomerular filtration rate > NRG Serum or plasma glucose measurement (mass/volume) 97 mg/dL 70-105 Serum or plasma calcium measurement (mass/volume) 9.2 mg/dL 8.5-10.1 Serum or plasma total bilirubin measurement (mass/volu me) 0.6 mg/dL 0.1-1.0 Serum or plasma alkaline phosphatase jodi surement (enzymatic activity/volume) 47 U/L 40-136 Serum or plasma aspartate aminotransfera se measurement (enzymatic activity/volume) 20 U/L 5-34 Serum or plasma alanine aminotransferase measurement (enzymatic activity/volume) 16 U/L 0-55 Serum or plasma protein measurement (mass/volume) 7.0 g/dL 6.4-8.2 Serum or plasma albumin measurement (mass/volume) 4.2 g/dL 3.2-4.5 CALCIUM CORRECTED 9.0 mg/dL 8.5-10.1 Complete blood count (CBC) with automate d white blood cell (WBC) differential - 03/31/20 03:45 Blood leukocytes automated count (number/volume) 6.2 10*3/uL 4.3-11.0 Blood erythrocytes automated count (number/volume) 4.36 10*6/uL 4.35-5.85 Venous blood hemoglobin measurement (mass/volume) 12.9 g/dL 11.5-16.0 Blood hematocrit (volume fraction) 37 % 35-52 Automated erythrocyte mean corpuscular volume 84 [ foz_us] 80-99 Automated erythrocyte mean corpuscular h emoglobin (mass per erythrocyte) 30 pg 25-34 Automated erythrocyte mean corpuscular h emoglobin concentration measurement (mass/volume) 35 g/dL 32-36 Automated erythrocyte distribution width ratio 13. 8 % 10.0- 14.5 Automated blood platelet count (count/volume) 318 10*3/uL 130-400 Automated blood platelet mean volume measurement 8.6 [foz_us] 7.4-10.4 Automated blood neutrophils/100 leukocytes 58 % 42-75 Automated blood lymphocytes/100 leukocytes 22 % 12-44 Blood monocytes/100 leukocytes 17 % 0-12 Automated blood eosinophils/100 leukocytes 3 % 0-10 Automated blood basophils/100 leukocytes 1 % 0-10 Blood neutrophils automated count (number/volume) 3.6 10*3 1.8-7.8 Blood lymphocytes automated count (number/volume) 1.4 10*3 1.0-4.0 Blood monocytes automated count (number/volume) 1. 0 10*3 0.0-1.0 Automated eosinophil count 0.2 10*3/uL 0 .0-0.3 Automated blood basophil count (count/volume) 0.0 10*3/uL 0.0-0.1 Blood lactic acid measurement (moles/vol ume) - 03/31/20 03:45 Blood lactic acid measurement (moles/volume) 2.63 mmol/L 0.50-2.00 Serum ragweed IgE antibody assay - 03/31 03:45 Serum ragweed IgE antibody assay 215 U/L 125-220 Erythrocyte sedimentation rate by hanna gren method - 03/31/20 03:45 Erythrocyte sedimentation rate by westergren method 8 mm 0- 30 PROCALCITONIN (PCT) - 03/31/20 03:45 PROCALCITONIN (PCT) 0.03 ng/mL <0.10 PT panel in platelet poor plasma by coag ulation assay - 03/31/20 03:45 Prothrombin time (PT) in platelet poor plasma by coagu lation assay 13.4 s 12.2-14.7 INR in platelet poor plasma or blood by coagulation as say 1.0 0.8-1.4 Activated partial thromboplastin time (a PTT) in platelet poor plasma bycoagulation assay - 03/31/20 03:45 Activated partial thromboplastin time (a PTT) in platelet poor plasma bycoagulation assay 28 s 24-35 Fibrin D-dimer FEU measurement in platel et poor plasma (mass/volume) - 03/31/20 03:45 Fibrin D-dimer FEU measurement in platelet poor plasma (mass/volume) 0.25 ug/mL 0.00-0.49 Serum or plasma C reactive protein measu rement (mass/volume) - 03/31/20 03:45 Serum or plasma C reactive protein measurement (mass/v olume) 0.12 mg/dL 0.00-0.50 Complete urinalysis with reflex to cultu re - 03/31/20 04:10 Urine color determination YELLOW NRG Urine clarity determination CLEAR NR G Urine pH measurement by test strip 8.5 5-9 Specific gravity of urine by test [...] urobilinogen measurement by automated test strip (mass/volume) 0.2 mg/dL < = 1.0 Urine leukocyte esterase detection by dipstick NEG ATIVE NEGATIVE Automated urine sediment erythrocyte cou nt by microscopy (number/high power field) RARE NRG Automated urine sediment leukocyte count by microscopy (number/high power field) [HPF] NRG Bacteria detection in urine sediment by light microsco py TRACE NRG Squamous epithelial cells detection in u rine sediment by light microscopy 0-2 NRG Crystals detection in urine sediment by light microsco py PRESENT NRG Casts detection in urine sediment by light microscopy NONE NRG Mucus detection in urine sediment by light microscopy NEGATIVE NRG Complete urinalysis with reflex to culture CULTURE PENDING NRG Calcium oxalate crystals detection in ur ine sediment by light microscopy RARE NRG Serum or plasma lactate measurement (mol es/volume) - 03/31/20 06:18 Serum or plasma lactate measurement (moles/volume) 2.31 mmol/L 0.50-2.00 Encounters ACCT No. Visit Date/Time Discharge Status Pt. Type Provider Facility Loc./Unit Complaint [id number] 03/22/2020 02:51:00 05:05:00 DIS Outpatient ESE JONES, VINH Tolbert [facility] ER WEAK,SOB [id number] 01/28/2020 12:00:00 12:55:00 DIS Emergency CEDRICK BLANC APRN [facility] ER FALL - HEAD PAIN [id number] 11/02/2019 10:11:00 23:59:59 CLS Outpatient UMA HENRY [facility] CARD CAD,HTN [id number] 09/28/2019 10:27:00 11:12:00 DIS Outpatient CARISSA BROWNE MD [facility] REHAB GENERAL WEAKNESS;R SCIATICA;DEBILITY [id number] 07/11/2019 13:37:00 17:02:00 DIS Emergency SOFY WOLF MD [facility] ER BILAT LEG WEAKN ESS [id number] 06/09/2019 19:07:00 21:28:00 DIS Outpatient CEDRICK BLANC APRN [facility] ER FALL,BACK PAIN [id number] 03/15/2019 09:18:00 23:59:59 CLS Outpatient CARISSA BROWNE MD [facility] RAD COUGH,DYSPNEA [id number] 03/13/2019 09:28:00 12:50:00 DIS Emergency ESE JONES, VINH Tolbert [facility] ER SINUS INFECTION [id number] 02/22/2019 07:18:00 23:59:59 CLS Outpatient UMA HENRY [facility] CARD CAD, CHEST PAIN, COPD [id number] 01/24/2019 14:12:00 23:59:59 CLS Preadmit WENDIE MORENO APRN [facility] REHAB BACK PAIN [id number] 01/12/2019 15:51:00 23:59:59 CLS Outpatient WENDIE MORENO APRN [facility] RAD FALL AT HOME,HI T HEAD,DIZZINESS [id number] 06/02/2018 11:12:00 018 23:59:59 CLS Preadmit CHUCK HENRY [facility] CARD CAD [id number] 06/02/2018 11:10:00 018 23:59:59 CLS Preadmit CHUCK HENRY [facility] CARD CAD [id number] 08/10/2017 08:39:00 017 23:59:59 CLS Outpatient CARISSA BROWNE MD [facility] RAD SCREENING [id number] 08/26/2016 07:07:00 23:59:59 CLS Outpatient UMA HENRY [facility] CARD CAD [id number] 08/04/2016 09:33:00 016 23:59:59 CLS Outpatient WENDIE MORENO APRN [facility] RAD SCREENING [id number] 01/24/2016 12:22:00 23:59:59 CLS Outpatient UMA HENRY [facility] CARD CAD,HLD,LBB B [id number] 08/15/2015 20:45:00 06:40:00 DIS Outpatient MINO BARRIENTOS APRN [facility] SLEEP SNORING,CHOKING [id number] 07/16/2015 08:35:00 23:59:59 CLS Outpatient CARISSA BRWONE MD [facility] RAD SCREENING [id number] 06/20/2015 20:45:00 06:55:00 DIS Outpatient YOLANDA SERNA DO [facility] SLEEP SNORING CHOKING/GASPING ISCHEMIC HEART DISEASE HTN [id number] 06/16/2015 02:50:00 13:40:00 DIS Inpatient HECTOR WALKER MD [facility] CSD CHEST PAIN [id number] 05/08/2015 11:03:00 23:59:59 CLS Outpatient CARISSA BROWNE MD [facility] RAD COUGH COPD DYSPNEA [id number] 04/30/2015 12:06:00 23:59:59 CLS Outpatient WENDIE MORENO APRN [facility] RAD COUGH,FEVER [id number] 04/24/2015 06:59:00 23:59:59 CLS Outpatient CARISSA BROWNE MD [facility] RT DYSPNEA COPD [id number] 04/11/2015 14:38:00 23:59:59 CLS Outpatient CARISSA BROWNE MD [facility] RAD DYSPNEA,COPD [id number] 04/03/2015 07:52:00 15:45:00 DIS Outpatient HECTOR WALKER MD [facility] CATH CP SOB CAD COPD HLP HTN [id number] 03/25/2015 13:54:00 11:45:00 DIS Inpatient HECTOR WALKER MD [facility] CSD CHEST PAIN [id number] 02/14/2015 09:22:00 015 23:59:59 CLS Outpatient KEY BRYANT [facility] QUICK [id number] 10/15/2014 07:16:00 015 23:59:59 CLS Outpatient HECTOR WALKER MD [facility] CARD CAD,CP,HTN [id number] 03/21/2014 09:54:00 014 23:59:59 CLS Outpatient [id number] 02/22/2014 09:36:00 23:59:59 CLS Outpatient DONTA PA, UMA Montes [facility] CARD CAD,COPD,HT N [id number] 10/12/2013 08:39:00 014 00:01:00 DIS Outpatient CARISSA BROWNE MD [facility] CARD PALPITATIONS [id number] 06/07/2013 06:27:00 14:15:00 DIS Outpatient HECTOR WALKER MD [facility] CATH CAD,ABNORMAL STRESS,TOE LASTER D,CP,LBBB [id number] 05/29/2013 12:42:00 23:59:59 CLS Outpatient CARISSA BROWNE MD [facility] RAD ABN MAMMO [id number] 05/16/2013 09:39:00 23:59:59 CLS Outpatient CARISSA BROWNE MD [facility] RAD SCREENING [id number] 03/31/2020 04:28:00 Document Registration [id number] 03/29/2020 14:15:[address] Outpatient CARISSA BROWNE MD [facility] REHAB GAIT INSTABILITY/WEAKNESS [id number] 05/29/2014 11:40:00 Document Registration [id number] 12/27/2012 11:33:00 Document Registration [id number] 12/21/2012 07:27:00 Document Registration [id number] 05/11/2012 12:25:00 Document Registration [id number] 04/27/2011 07:30:00 Document Registration [id number] 11/26/2010 05:38:00 Document Registration [id number] 10/27/2010 08:48:00 Document Registration [id number] 04/15/2010 13:31:00 Document Registration [id number] 04/03/2010 13:00:00 Document Registration [id number] 11/05/2009 10:31:00 Document Registration [id number] 10/30/2009 11:00:00 Document Registration [id number] 10/25/2009 08:00:00 Document Registration [id number] 06/17/2009 06:21:00 Document Registration
--- NOTE | 2020-03-31 07:50 | NUR ---
SON UPDATED ON ADMISSION
--- NOTE | 2020-03-31 08:07 | NUR ---
JOEL CABALLERO admitted to room 414-1, with an admitting diagnosis of HYPONAT, on 03/31/20 from ED via WC, accompanied by STAFF. JOEL CABALLERO introduced to surroundings, call light, bed controls, phone, TV, temperature control, lights, meal times, smoking policy, visitor policy, side rail policy, bathrooms and showers. Patient Rights given to patient in the handbook. JOEL CABALLERO verbalizes understanding that [facility] is not responsible for the loss or damage to any personal effects or valuables that are kept in the patients posession during their hospitalization. The following Patient Care Plans were discussed with the PT: Discharge Planning, PAIN, ALT ELECTROLYTES. JOEL CABALLERO verbalizes understanding of Interdisciplinary Patient Education. Patient and/or family were informed about the Rapid Response Team and its purpose.
[2020-03-31 08:11] VITALS: BP 189/82
[2020-03-31 08:15] VITALS: BP 189/82
[2020-03-31] MEDS: LACTATED RINGERS 1,000 ML IV SCH (08:23)
[2020-03-31] MEDS ORDERED: PANT40TA3 PO (10:02)
[2020-03-31] MEDS ORDERED: LOSA100T57 PO (10:02)
[2020-03-31] MEDS ORDERED: RANO500T3 PO (10:04)
[2020-03-31] MEDS ORDERED: METO50TA7 PO (10:08)
[2020-03-31] MEDS ORDERED: BUSP5TAB59 PO (10:09)
[2020-03-31] MEDS ORDERED: RT-ALBUINH INH (10:10)
--- NOTE | 2020-03-31 12:26 | History & Physical-Hospitalist ---
History of Present Illness HPI/Chief Complaint Pt is an 84yoCF with a PMH of CAD, HTN, COPD who presented to the ER due to reported hypoxia. She woke up to go to the bathroom in the middle of the night and noted she was short of breath upon returning to bed. She check her Blood pressure which was high and so she called her family. They attempted to check her oxygen saturation and it read in the 40s prompting them to seek evaluation her. On arrival here though her oxygen saturation was 97% one her pinky finger. She was tested for COVID last week and this was negative. She reports feeling well now and denies any SOB. Her family member at bed side states this has been happening lately and they believe it is due to anxiety. patient agrees that she does get anxious and it makes it hard to breath. Source: patient Date Seen 03/31/20 Time Seen by a Provider: 12:19 Attending Physician Jaleel Shields MD PCP Stanley Álvarez MD Referring Physician Date of Admission Mar 31, 2020 at 07:07 Home Medications & Allergies Home Medications Reviewed patient Home Medication Reconciliation performed by pharmacy medication reconciliations process mold technician and/or nursing. Patients Allergies have been reviewed. Allergies Allergies Coded Allergies Penicillins (Unverified Allergy, Intermediate, RASH, 03/31/20) clopidogrel (Verified Allergy, Mild, ITCHING, 03/31/20) Past Wanuntg-Ximlqu-Cbzyhz Hx Past Med/Social Hx: Reviewed Nursing Past Med/Soc Hx Patient Social History Marrital Status: Alcohol Use: Occasionally Uses Number of Drinks Today: Alcohol Beverage of Choice: Wine Recreational Drug Use: No Smoking Status: Never a Smoker 2nd Hand Smoke Exposure: No Recent Foreign Travel: No Contact w/other who traveled: No Recent Hopitalizations: No Recent Infectious Disease Expo: No Immunizations Up To Date Tetanus Booster (TDap): Less than 5yrs Pediatric: Yes Date of Pneumonia Vaccine: Jun 07, 2013 Date of Influenza Vaccine: May 20, 2015 Seasonal Allergies Seasonal Allergies: No Past Medical History Surgeries: Coronary Stent, Orthopedic Currently Using CPAP: No Currently Using BIPAP: No Cardiac: Coronary Artery Disease, High Cholesterol, Hypertension Reproductive: No Sexually Transmitted Disease: No HIV/AIDS: No Menopausal Gastrointestinal: Gastroesophageal Reflux, Hemorrhoids, Polyps, Gall Bladder Disease, Irritable Bowel Musculoskeletal: Arthritis HEENT: Cataract Loss of Vision: Denies Hearing Impairment: Hard of Hearing Psychosocial: Anxiety History of Blood Disorders: No Adverse Reaction to Blood Myrick: No Family History Reviewed Nursing Family Hx Colon cancer 19 MOTHER FH: emphysema 19 FATHER FH: lung cancer G8 BROTHER Prostate cancer G8 BROTHER Review of Systems Constitutional: No chills, No fever EENTM: no symptoms reported Respiratory: see HPI, short of breath Cardiovascular: see HPI Gastrointestinal: No abdominal pain, No nausea, No vomiting Genitourinary: no symptoms reported Musculoskeletal: no symptoms reported Skin: no symptoms reported Psychiatric/Neurological: No Symptoms Reported Physical Exam Physical Exam Vital Signs Vital Signs - First Documented 03/31/20 03/31/20 03:42 04:49 Temp 36.2 Pulse 69 Resp 20 B/P (MAP) 205/92 (129) Pulse Ox 100 O2 Delivery Room Air Capillary Refill : Less Than 3 Seconds Height, Weight, BMI Height: 5'4.00" Weight: 125lbs. 0.0oz. 56.031193bt; 22.22 BMI Method:Stated General Appearance: No Apparent Distress, WD/WN, Thin HEENT: PERRL/EOMI, Moist Mucous Membranes Neck: Normal Inspection, Supple Respiratory: Lungs Clear, No Accessory Muscle Use, No Respiratory Distress Cardiovascular: Regular Rate, Rhythm, No Murmur Gastrointestinal: Normal Bowel Sounds, Non Tender, Soft Extremity: No Calf Tenderness, No Pedal Edema Neurologic/Psychiatric: Alert, Oriented x3, Normal Mood/Affect Skin: Normal Color, Warm/Dry Results Results/Procedures Labs Laboratory Tests 03/31/20 03:45 Patient resulted labs reviewed. Imaging [facility] [place], [place] NAME: JOEL CABALLERO [facility] REC#: [id number] PT STATUS: ADM Stoney : 1935 PHYSICIAN: SOFY WOLF MD ADMIT DATE: 03/31/20/ Signed Date of Exam:03/31/20 CHEST 1 VIEW, AP/PA ONLY EXAMINATION: Chest radiograph, portable AP view. DATE: 03/31/2020 4:25 AM hours. INDICATION: 84-year-old female, shortness of breath and cough. COMPARISON: March 22, 2020. FINDINGS: Heart size and mediastinal contours are unremarkable. There is no identified pneumothorax. There is no large pleural effusion. There is no identified focal airspace consolidation. There are bilateral glenohumeral arthritic changes. There are intra-articular bodies bilaterally. IMPRESSION: 1. No identified acute cardiopulmonary abnormality. Dictated by: Dictated on workstation # [id number] Dict: 03/31/20 0704 Trans: 03/31/20 0744 CVB [id number] Interpreted by: CHINEDU TIJERINA MD Electronically signed by: CHINEDU TIJERINA MD 03/31/20 0744 Assessment/Plan Admission Diagnosis Lactic Acidosis Admission Status: Observation Assessment and Plan Lactic Acidosis Dehydration Chronic hyponatremia Pt reports feeling better today Continue IVF Check in AM PT for weakness Reported Hypoxia Does not appear to be accurate Continue to monitor here but doing well on room air HTN CAD No acute needs JALEEL SHIELDS MD Mar 31, 2020 12:25
[2020-03-31] MEDS: ACETAMINOPHEN 325 MG TABLET PO PRN ×2 (12:45→19:36)
--- NOTE | 2020-03-31 12:50 | NUR ---
TYLENOL 2 PO FOR C/O HEADACHE.
[2020-03-31 15:27] VITALS: BP 158/73
--- NOTE | 2020-03-31 16:40 | NUR ---
ZOFRAN 4MG IV FOR C/O NAUSEA.
[2020-03-31] MEDS: ONDANSETRON 4 MG/2 ML (SDV) Z0FRAN IV PRN ×2 (16:44→23:06)
[2020-03-31 19:47] VITALS: BP 155/72
[2020-03-31 23:45] VITALS: BP 196/75
[2020-03-31] MEDS ORDERED: meTOprolol TARTRATE 50 MG (LOPRESSOR) TAB PO SCH (23:55)
[2020-04-01] MEDS ORDERED: IBUPROFEN 600 MG (MOTRIN) TAB PO PRN
[2020-04-01] MEDS ORDERED: NITROGLYCERIN 2% OINT 1 GM UNIT DOSE PACKET TOP PRN
--- NOTE | 2020-04-01 00:07 | NUR ---
230-pt reports that she is having nausea-prn zofran given 2344-pt reports band like headache 12/21 numerically , continued nausea, dizziness, pt reports that she take metoprolol 50 mg at hs & that she has not had it today, pt vitals are 196/75 hr 80 2348-this rn contacted dr. huffman about pt's current condition & also informed her about pt not having had her metoprolol. orders received & read back to dr. huffman-she agreed to them.
[2020-04-01 01:38] VITALS: BP 160/60
[2020-04-01] MEDS: ONDANSETRON 4 MG/2 ML (SDV) Z0FRAN IV PRN (02:54)
[2020-04-01] MEDS: LACTATED RINGERS 1,000 ML IV SCH (04:37)
[2020-04-01 05:14] VITALS: BP 166/70
[2020-04-01 05:52] LABS: ALBUMIN 3.5 GM/DL (3.2-4.5); CHLORIDE 99 MMOL/L (98-107); POTASSIUM 4.7 MMOL/L (3.6-5.0); SODIUM 129 MMOL/L (135-145)
[2020-04-01 05:53] LABS: CALCIUM 8.3 MG/DL (8.5-10.1)
[2020-04-01 05:54] LABS: GLUCOSE 107 MG/DL (70-105)
[2020-04-01 05:55] LABS: TOTAL PROTEIN 5.7 GM/DL (6.4-8.2)
[2020-04-01 05:56] LABS: BILIRUBIN,TOTAL 0.5 MG/DL (0.1-1.0); CARBON DIOXIDE 21 MMOL/L (21-32)
[2020-04-01 05:58] LABS: ALKALINE PHOSPHATASE 41 U/L (40-136); CREATININE SERUM 0.76 MG/DL (0.60-1.30); GFR ESTIMATED > 60
[2020-04-01 05:59] LABS: BUN/CREATININE RATIO 16
[2020-04-01 06:01] LABS: ALANINE AMINOTRANSFERASE 13 U/L (0-55)
[2020-04-01 07:24] VITALS: BP 183/74
--- NOTE | 2020-04-01 09:47 | NUR ---
Pt is [employer] and anticipates going home today. Brinell Tester offered blessing.
--- NOTE | 2020-04-01 10:02 | Physical Therapy Evaluation ---
PT Evaluation-General Medical Diagnosis Admission Date Mar 31, 2020 at 07:07 Medical Diagnosis: hyponatremia/lactic acidosis Onset Date: Mar 31, 2020 Therapy Diagnosis Therapy Diagnosis: debility/weakness Height/Weight Height (Feet): 5 Height (Inches): 4.00 Weight (Pounds): 125 Weight (Ounces): 0.0 Precautions Precautions/Isolations: Fall Prevention, Standard Precautions Weight Bear Status Right Lower Extremity: Right Weight Bearing/Tolerated Left Lower Extremity: Left Weight Bearing/Tolerated Referral Physician: Alyson Reason for Referral: Evaluation/Treatment Medical History Pertinent Medical History: CAD, COPD, HTN Additional Medical History asthma Current History ER with HTN and SOA Reviewed History: Yes Social History Home: Single Level Current Living Status: Spouse Entry Into Home: Stairs With Railing PT Steps Into Home: 2 Prior Prior Level of Function SCALE: Activities may be completed with or without assistive devices. 5-Faeqwbwapk-aypbuwv completes the activity by him/herself with no assistance from a helper. 5-Set-up or Clean-up Assistance-helper sets up or cleans up; patient completes activity. [place] assists only prior to or following the activity. 4-Supervision or Touching Assistance-helper provides verbal cues and/or touching/steadying and/or contact guard assistance as patient completes activity. Assistance may be provided throughout the activity or intermittently. 3-Partial/Moderate Assistance-helper does LESS THAN HALF the effort. [place] lifts, holds or supports trunk or limbs, but provides less than half the effort. 2-Substantial/Maximal Assistance-helper does MORE THAN HALF the effort. [place] lifts or holds trunk or limbs and provides more than half the effort. 5-Mjglfoqfs-hgxdzv does ALL the effort. Patient does none of the effort to complete the activity. Or, the assistance of 2 or more helpers is required for the patient to complete the activity. If activity was not attempted, code reason: 7-Patient Refused. 9-Not Applicable-not attempted and the patient did not perform the activity before the current illness, exacerbation or injury. 10-Not Attempted due to Environmental Limitations-(lack of equipment, weather restraints, etc.). 88-Not Attempted due to Medical Conditions or Safety Concerns. Bed Mobility: 6 Transfers (B,C,W/C): 6 Gait: 6 Stairs: 6 Indoor Mobility (Ambulation): Independent Stairs: Independent Prior Devices Use: Walker (4WW) PT Evaluation-Current Subjective Patient is very agreeable to participate with therapy. Pain Numeric Pain Scale: 0-No Pain Location: No Pain Reported Objective Patient Orientation: Normal For Age Attachments: IV ROM/Strength ROM Lower Extremities bilateral LE WFL Strength Lower Extremities 4/5 grossly bilateral LE Integumentary/Posture Integumentary refer to nursing notes Bowel Incontinence: No Bladder Incontinence: No Posture WFL Neuromuscular (Tone, Coordination, Reflexes) grossly intact Sensory Vision: Wears Glasses Hearing: Impaired Sensation Right Lower Extremit: Intact Sensation Left Lower Extremity: Intact Transfers Roll Left to Right (QC): 6 Lying to Sitting/Side of Bed(Q: 6 Sit to Stand (QC): 6 Chair/Sfp-sw-Xtlgo Xfer(QC): 6 Gait Does the Patient Walk?: Yes Mode of Locomotion: Walk Anticipated Mode of Locomotion: Walk Walk 10 feet (QC): 6 Walk 50 ft with 2 Turns(QC): 6 Walk 150 ft (QC): 6 Distance: 300' Gait Assistive Device: FWW Comments/Gait Description slow, steady with no deviation Balance Sitting Static: Normal Sitting Dynamic: Normal Standing Static: Normal Standing Dynamic: Normal Assessment/Needs 84 y.o. female, will be seen short term by skilled PT to address functional strength and mobility to improve current LOF. to safely return to home with spouse at maximum LOF. Patient does receive outpatient PT prior to this admit. Rehab Potential: Fair PT Policy Director Goals Policy Director Goals PT Policy Director Goals Time Frame: Apr 06, 2020 Roll Left & Right (QC): 6 Sit to Lying (QC): 6 Lying-Sitting on Side/Bed(QC): 6 Sit to Stand (QC): 6 Chair/Wow-ma-Gwwie Xfer(QC): 6 Toilet Transfer (QC): 6 Does the Patient Walk: Yes Walk 10 feet (QC): 6 Walk 50ft with 2 Turns (QC): 6 Walk 150 ft (QC): 6 PT Plan Problem List Problem List: Activity Tolerance Treatment/Plan Treatment Plan: Continue Plan of Care Treatment Plan: Education, Functional Activity Tati, Functional Strength, Gait, Safety, Therapeutic Exercise Treatment Duration: Apr 06, 2020 Frequency: 6 times per week Estimated Hrs Per Day: .25 hour per day Patient and/or Family Agrees t: Yes Time/GCodes Time In: 830 Time Out: 841 Total Billed Treatment Time: 11 Total Billed Treatment 1 visit EVMod 11 min ANA BECERRA PT Apr 01, 2020 10:02
[2020-04-01] MEDS ORDERED: FLUT9.9S NS (10:26)
[2020-04-01] MEDS ORDERED: ACET325C7 PO (10:26)
[2020-04-01] MEDS ORDERED: DOCU-238 PO (10:26)
[2020-04-01] MEDS ORDERED: ROSU10TA28 PO (10:26)
--- NOTE | 2020-04-01 10:27 | NUR ---
SPOKE WITH THE PT (THERE WAS A MED LIST ON HER CHART)WENT THRU THE EXT MED HISTORY AND CALLED [facility] TO COMPLETE THE MED REC ROSUVASTATIN 10MG: DIRECTIONS ARE 1 TAB DAILY BUT PT SAYS SHE DOESNT TAKE IT THAT OFTEN AND USUALLY ONLY TAKES IT TWICE WEEKLY- LAST FILLED 05-17-2019 #90 I DID DOCUMENT THE PAST DUE FILL DATE ON THE MED REC OTC MEDS: TYLENOL STOOL SOFTENER FLONASE
--- NOTE | 2020-04-01 10:31 | NUR ---
CM/SS visited with patient for discharge planning. Plan: The patient will return home today. The patient will have transportation from [facility]. Patient asked if CM/SS will contact [facility] for roll picker. The patient reports that she is doing okay today but wishes to get back home to her . The patient states she feels that her shortness of breath was related to anxiety. She frequently has anxiety and is on two different prescriptions for it. 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 They live alone together but she stated her son, ftuywcbp-cc-ozv, and granddaughter live very close by. She stated that her son brings her and her food every day and help them with any needs. DME: The patient does have a ryaq-xtfpeuh-ktgmra with seat from [employer]. No other equipment. Patient states she does not have any home health, caregivers, or homemaker services at this time and does not believe she needs any.
[2020-04-01 12:00] VITALS: BP 183/74
--- NOTE | 2020-04-01 20:23 | Discharge Summary ---
Discharge Summary Hospital Course Was the Problem List Reviewed?: Yes Problems/Dx: (1) Dehydration Status: Acute (2) Lactic acidosis Status: Acute Hospital Course Date of Admission: Mar 31, 2020 at 07:07 Admission Diagnosis: Dehydration Family Physician/Provider: Carissa Browne MD Date of Discharge: 04/01/20 Discharge Diagnosis: Dehydration Hospital Course: Maura Srinivasan is an 84-year-old female who presented with shortness of breath and was admitted with dehydration and lactic acidosis. She was treated with IV fluids and responded appropriately. There is no evidence of any infectious source. She was discharged home in stable condition. She should follow-up with her primary care physician. Labs and Pending Lab Test: Laboratory Tests 04/01/20 05:00: Sodium Level 129L, Potassium Level 4.7, Chloride Level 99, Carbon Dioxide Level 21, Anion Gap 9, Blood Urea Nitrogen 12, Creatinine 0.76, Estimat Glomerular Filtration Rate > 60, BUN/Creatinine Ratio 16, Glucose Level 107H, Calcium Level 8.3L, Corrected Calcium 8.7, Total Bilirubin 0.5, Aspartate Amino Transf (AST/SGOT) 19, Alanine Aminotransferase (ALT/SGPT) 13, Alkaline Phosphatase 41, Total Protein 5.7L, Albumin 3.5 Microbiology 03/31/20 Urine Culture - Final, Complete NO GROWTH 03/31/20 Blood Culture - Preliminary, Resulted No growth Home Meds Active Reported Rosuvastatin Calcium 10 Mg Tablet 10 Mg PO MON,FRI LAST FILLED 05-17-2019 #90 Flonase Allergy Relief (Fluticasone Propionate) 9.9 Ml [place].susp 1 [place] NS DAILY PRN 1 SPRAY EACH NARE DAILY Stool Softener (Docusate Sodium) 100 Mg Capsule 100 Mg PO DAILY PRN Tylenol (Acetaminophen) 325 Mg Capsule 650 Mg PO TID PRN Ventolin Hfa (Albuterol Sulfate) 1 Puff Puff 2 Puff INH DAILY PRN PRN Buspirone HCl 5 Mg Tablet 5 Mg PO DAILY Metoprolol Succinate 50 Mg Tab.er.24h 50 Mg PO HS Ranexa (Ranolazine) 500 Mg Tab.er.12h 500 Mg PO BID Pantoprazole Sodium 40 Mg Tablet.dr 40 Mg PO DAILY Losartan Potassium 100 Mg Tablet 100 Mg PO DAILY Sertraline HCl 100 Mg Tablet 100 Mg PO DAILY Assessment/Pt Instructions Take medications as prescribed. Follow-up with your primary care physician. Discharge Planning: <30 minutes discharge planning Discharge Instructions Discharge Diet: No Restrictions Activity as Tolerated: Yes Discharge Physical Examination Vital Signs Vital Signs Date Time Temp Pulse Resp B/P (MAP) Pulse Ox O2 Delivery O2 Flow Rate FiO2 04/01/20 12:00 36.2 72 18 183/74 99 Room Air General Appearance: No Apparent Distress, Chronically ill HEENT: PERRL/EOMI, Pharynx Normal Respiratory: Lungs Clear, Normal Breath Sounds, No Respiratory Distress Cardiovascular: Regular Rate, Rhythm, No Edema, No Murmur Gastrointestinal: Normal Bowel Sounds, Non Tender, Soft Extremity: Normal Inspection, Non Tender, No Pedal Edema Skin: Normal Color Neurologic/Psychiatric: Alert, Oriented x3, No Motor/Sensory Deficits, Normal Mood/Affect Allergies: Coded Allergies: Penicillins (Unverified Allergy, Intermediate, RASH, 03/31/20) clopidogrel (Verified Allergy, Mild, ITCHING, 03/31/20) Copy Copies To 1: CARISSA RBOWNE MD Discharge Summary Date of Admission Mar 31, 2020 at 07:07 Date of Discharge Apr 01, 2020 at 12:00 Discharge Date: Apr 01, 2020 Discharge Time: 12:00 Admission Diagnosis Lactic Acidosis Discharge Diagnosis (1) Dehydration Status: Acute (2) Lactic acidosis Status: Acute Clinical Quality Measures DVT/VTE Risk/Contraindication: Risk Factor Score Per Nursin RFS Level Per Nursing on Admit: 4+=Very High CORINE BLACK MD Apr 01, 2020 20:23
== END 2020-04-01 12:00 | disposition home or self-care (01) ==
LOC: EDUNIT# 03:16 → ER 03:17 → 4TH 07:07
PROVIDERS: ADMIT Family Medicine; ATTEND Family Medicine
DX: E86.0 Dehydration (principal); E87.2 Acidosis; I25.10 Atherosclerotic heart disease of native coronary artery without angina pectoris; E78.00 Pure hypercholesterolemia, unspecified; I10 Essential (primary) hypertension; K21.9 Gastro-esophageal reflux disease without esophagitis; K58.9 Irritable bowel syndrome, unspecified; F41.9 Anxiety disorder, unspecified; H91.90 Unspecified hearing loss, unspecified ear; E87.1 Hypo-osmolality and hyponatremia; R09.02 Hypoxemia; R11.0 Nausea; Z79.82 Long term (current) use of aspirin; Z79.899 Other long term (current) drug therapy; Z95.5 Presence of coronary angioplasty implant and graft; Z86.010 Personal history of colon polyps; Z88.8 Allergy status to other drugs, medicaments and biological substances; Z88.0 Allergy status to penicillin; R82.90 Unspecified abnormal findings in urine
CPT/HCPCS: 71045; 80053 ×2; 81000; 83605; 83615; 84145; 85025; 85379; 85610; 85652; 85730; 86141; 87040; 87088; 97162; 99284; G0378; 36415

== ENCOUNTER 2020-04-11 15:02 | Outpatient (RCR) | payer MEDICARE ==
[~2020-04-11 15:02] MED LIST changes: +ACET325C7 PO; +BUSP5TAB59 PO; +DOCU-238 PO; +FLUT9.9S NS; +LOSA100T57 PO; +PANT40TA3 PO; +ROSU10TA28 PO; +RT-ALBUINH INH
== END 2020-05-06 14:40 | disposition home or self-care (01) ==
PROVIDERS: ATTEND Internal Medicine
DX: R26.9 Unspecified abnormalities of gait and mobility (principal); R53.1 Weakness; I10 Essential (primary) hypertension; J45.909 Unspecified asthma, uncomplicated; F32.9 Major depressive disorder, single episode, unspecified; H91.90 Unspecified hearing loss, unspecified ear; Z95.828 Presence of other vascular implants and grafts; Z91.81 History of falling

== ENCOUNTER 2020-08-01 12:59 | Outpatient (RCR) | payer MEDICARE ==
[~2020-08-01 12:59] MED LIST changes: -PANT40TA3 PO; +PANT40TA52 PO
== END 2020-08-21 10:23 | disposition home or self-care (01) ==
PROVIDERS: ATTEND Internal Medicine
DX: R26.89 Other abnormalities of gait and mobility (principal); I10 Essential (primary) hypertension; J45.909 Unspecified asthma, uncomplicated; Z20.828 Contact with and (suspected) exposure to other viral communicable diseases

== ENCOUNTER 2020-11-01 09:10 | Emergency (ER) | payer MEDICARE ==
[~2020-11-01] VITALS: Ht 162.5 cm; Wt 63.5 kg
[~2020-11-01 09:10] MED LIST changes: +SERT-414 PO; -SERT100T8 PO
--- NOTE | 2020-11-01 09:42 | ED Back Pain ---
General Chief Complaint: Back Problems Stated Complaint: BACK PAIN Nursing Triage Note: PT TO RM 5 BY WHEELCHAIR WITH COMPLAINT OF LEFT LOWER BACK PAIN. STATES FELL A FEW DAYS AGO AND HIT BACK OF HEAD ON FLOOR. DENIES TAKING BLOOD THINNERS OR ASA. STATES BACK PAIN HAD STARTED PRIOR TO FALLING. Nursing Sepsis Screen: No Definite Risk Source of Information: Patient, Family Exam Limitations: No Limitations History of Present Illness Date Seen by Provider: Nov 01, 2020 Time Seen by Provider: 09:30 Initial Comments Patient is an 85-year-old female who presents to the emergency department today with a chief complaint of severe lower back pain. Patient states that she woke up with low back pain a week ago today. Patient states she also had a mechanical trip and fall last wednesday and hit the back of her head. She states she is not on any blood thinners. She states that her pain was significantly worsened after her fall and hurts more on the left side than in the center. Patient denies any problems with bowel or bladder specifically incontinence. She states it has been "a few days" since her last bowel movement and normally she goes every 2 days. She denies any dysuria, urgency or frequency. She adamantly denies any abdominal pain. Patient denies any recent illnesses. She denies any traumas prior to waking up last Wednesday with the back pain. No numbness tingling or weakness in her lower extremities. Pain does not seem to radiate and is worsened with movement. Patient states with any movement at all her pain is at a "10". When she is laying still it is an "8." Patient states that she has been taking ghne-rfl-vtogbps extra strength Tylenol for the pain and it has not helped at all today. All other review of systems reviewed and negative except as stated above. Timing/Duration: 1 Week Severity: Severe Pain/Injury Location: Back Method of Injury: Unknown Modifying Factors: Worse With Movement; Improves With Rest Associated Symptoms: lower back pain Allergies and Home Medications Allergies Coded Allergies: Penicillins (Unverified Allergy, Intermediate, RASH, 03/31/20) clopidogrel (Verified Allergy, Mild, ITCHING, 03/31/20) Home Medications Acetaminophen 325 Mg Capsule, 650 MG PO TID PRN for PAIN-MILD (1-4), (Reported) Albuterol Sulfate 1 Puff Puff, 2 PUFF INH DAILY PRN PRN for SHORTNESS OF BREATH, (Reported) Buspirone HCl 5 Mg Tablet, 5 MG PO DAILY, (Reported) Docusate Sodium 100 Mg Capsule, 100 MG PO DAILY PRN for CONSTIPATION-1ST LINE, (Reported) Fluticasone Propionate 9.9 Ml [place].susp, 1 SPRAY NS DAILY PRN for CONGESTION, (Reported) 1 SPRAY EACH NARE DAILY Hydrocodone/Acetaminophen 1 Each Tablet, 1 TAB PO Q4H PRN for PAIN-MODERATE (5- 7) take 1/2 tablet every 4 hours as needed for pain. You may take 1 tablet at bedtime. Prescribed by: KING JARA on 11/01/20 1104 Losartan Potassium 100 Mg Tablet, 100 MG PO DAILY, (Reported) Metoprolol Succinate 50 Mg Tab.er.24h, 50 MG PO HS, (Reported) Pantoprazole Sodium 40 Mg Tablet.dr, 40 MG PO DAILY, (Reported) Prednisone 20 Mg Tab, 40 MG PO DAILY Prescribed by: KING JARA on 11/01/20 1104 Ranolazine 500 Mg Tab.er.12h, 500 MG PO BID, (Reported) Rosuvastatin Calcium 10 Mg Tablet, 10 MG PO MON,FRI, (Reported) LAST FILLED 05-17-2019 #90 Sertraline HCl 100 Mg Tablet, 100 MG PO DAILY, (Reported) Patient Home Medication List Home Medication List Reviewed: Yes Review of Systems Constitutional: see HPI EENTM: no symptoms reported Respiratory: no symptoms reported, short of breath ((chronically a little short of breath)) Cardiovascular: no symptoms reported Gastrointestinal: no symptoms reported Genitourinary: no symptoms reported Musculoskeletal: back pain Skin: no symptoms reported Psychiatric/Neurological: No Symptoms Reported All Other Systems Reviewed Negative Unless Noted: Yes Past Xineygz-Hxpfvx-Ayhbwu Hx Patient Social History Alcohol Use: Occasionally Uses Number of Drinks Today: Alcohol Beverage of Choice: Wine Smoking Status: Never a Smoker 2nd Hand Smoke Exposure: No Recent Infectious Disease Expo: No Recent Hopitalizations: No Immunizations Up To Date Tetanus Booster (TDap): Less than 5yrs PED Vaccines UTD: Yes Date of Pneumonia Vaccine: Jun 07, 2013 Date of Influenza Vaccine: May 20, 2015 Seasonal Allergies Seasonal Allergies: No Past Medical History Surgeries: Yes (STENT X1, HEMMROIDECTOMY, PARATHYROID, carpal tunnel ) Coronary Stent, Orthopedic Respiratory: Yes (COPD) Asthma, COPD Currently Using CPAP: No Currently Using BIPAP: No Cardiac: Yes (STENT - 2010) Coronary Artery Disease, High Cholesterol, Hypertension Neurological: No Reproductive Disorders: No CORN COOKER History: Menopausal Sexually Transmitted Disease: No HIV/AIDS: No Genitourinary: No Gastrointestinal: Yes Gastroesophageal Reflux, Hemorrhoids, Polyps, Gall Bladder Disease, Irritable Bowel Musculoskeletal: Yes Arthritis Endocrine: No HEENT: Yes Cataract Loss of Vision: Denies Hearing Impairment: Hard of Hearing Cancer: No Psychosocial: Yes Anxiety Integumentary: No Blood Disorders: No Adverse Reaction/Blood Tranf: No Family Medical History Colon cancer 19 MOTHER FH: emphysema 19 FATHER FH: lung cancer G8 BROTHER Prostate cancer G8 BROTHER Physical Exam Vital Signs Vital Signs - First Documented 11/01/20 09:17 Temp 36.3 Pulse 85 Resp 15 B/P (MAP) 187/90 (122) Pulse Ox 97 O2 Delivery Room Air Capillary Refill : Less Than 3 Seconds Height, Weight, BMI Height: 5'4.00" Weight: 125lbs. 0.0oz. 56.696457dy; 24.00 BMI Method:Stated General Appearance: WD/WN, Mild Distress HEENT: PERRL/EOMI Cardiovascular: Regular Rate, Rhythm Respiratory: Lungs Clear, Normal Breath Sounds, No Accessory Muscle Use, No Respiratory Distress Gastrointestinal: Normal Bowel Sounds, Non Tender, Soft Back: Normal Inspection, No CVA Tenderness, Other (Tenderness to palpation over the SI joints bilaterally) Extremity: Normal Capillary Refill, Normal Inspection, Normal Range of Motion, Non Tender, No Calf Tenderness, No Pedal Edema Neurologic/Psychiatric: Alert, Oriented x3, No Motor/Sensory Deficits, Normal Mood/Affect Skin: Normal Color, Warm/Dry Progress/Results/Core Measures Results/Orders My Orders Orders - KING JARA MD Ed Iv/Invasive Line Start (11/01/20 09:37) Ct Lumbar Spine Wo (11/01/20 09:37) Fentanyl Injection (Sublimaze Injection (11/01/20 09:45) Orphenadrine Inj (Ed Only) (Norflex Inje (11/01/20 09:45) Prednisone Tablet (Deltasone Tablet) (11/01/20 11:00) Hydrocodone/Apap 5/325 Tablet (Lortab 5 (11/01/20 11:00) Medications Given in ED Current Medications Medications Dose Ordered Sig/Kendra Route Start Time Stop Time Status Last Admin Dose Admin Acetaminophen/ Hydrocodone Bitart 0.5 ea ONCE ONCE PO 11/01/20 11:00 11/01/20 11:01 DC 11/01/20 11:03 0.5 EA Fentanyl Citrate 25 mcg ONCE ONCE IVP 11/01/20 09:45 11/01/20 09:46 DC 11/01/20 09:49 25 MCG Orphenadrine Citrate 30 mg ONCE ONCE IV 11/01/20 09:45 11/01/20 09:46 DC 11/01/20 09:49 30 MG Prednisone 40 mg ONCE ONCE PO 11/01/20 11:00 11/01/20 11:01 DC 11/01/20 11:03 40 MG Vital Signs/I&O 11/01/20 09:17 Temp 36.3 Pulse 85 Resp 15 B/P (MAP) 187/90 (122) Pulse Ox 97 O2 Delivery Room Air Blood Pressure Mean: 122 Progress Progress Note : Time: 10:56 Progress Note Patient reevaluated after IV fentanyl and Norflex and CT scan of the lumbar s pine. Patient states that she achieved some fairly decent relief with the IV fentanyl however it seems to be wearing off. Patient complains of a little bit of increasing intensity of her pain. She is noted to have an acute appearing T12 compression fracture without retropulsed fragments. She also has "severe spondylosis" of the lumbar spine. I expect that this lower pain at the SI joints bilaterally is as a result of the spondylosis and degenerative arthritic change. I am going to refer her back to her primary care physician for further evaluation with possible MRI and referral to neurosurgery for kyphoplasty at T12. Patient is neurologically intact. She has no clinical findings of acute cauda equina syndrome. She in fact has no radicular pains at this time. No concerns for abdominal aortic aneurysm, patient has intact pulses and a nontender belly and stable vital signs. Patient will be discharged to home with hydrocodone 2.5 mg every 4-6 hours as needed for pain. I am cautioning her to use stool softeners while she is taking narcotic pain medications. I am also going to put her on 40 mg of prednisone daily for 5 days. I have reviewed the discharge instructions with the patient and her son who is at the bedside. She is agreeable with the plan of care. All questions have been sought and answered. Patient is stable for discharge. Diagnostic Imaging Diagonstic Imaging: CT Plain Films/CT/US/NM/MRI: other (lumbar spine) Comments [facility] [place] NAME: JOEL CABALLERO [facility] REC#: [id number] PT STATUS: REG ER : 1935 PHYSICIAN: KING JARA MD ADMIT DATE: 11/01/20/ER Draft Date of Exam:11/01/20 CT LUMBAR SPINE WO PROCEDURE: CT lumbar spine without contrast. TECHNIQUE: Multiple contiguous axial images were obtained through the lumbar spine without the use of intravenous contrast. Sagittal and coronal reformations were then performed. Auto Exposure Controls were utilized during the CT exam to meet ALARA standards for radiation dose reduction. INDICATION: Fall with severe low back pain. COMPARISON: Correlation is made with prior CT lumbar spine from 06/09/2019. FINDINGS: Curvature of the lumbar spine is normal. There is minimal retrolisthesis of L2 on L3 and L3 on L4. There is a new compression fracture involving the T12 vertebral body. This appears to be acute. There is some central compression of the superior endplate. There also appears to be some central compression of the inferior endplate. No retropulsion is identified. Lumbar vertebral bodies show normal stature. There is severe lumbar spondylosis with variable disc space narrowing and marginal spurring. Paraspinous tissues are unremarkable. IMPRESSION: 1. Acute compression fracture involving T12 vertebral body without evidence of retropulsion. No other acute compression fractures are seen. 2. Lumbar spondylosis. Dictated on workstation # [id number] Dict: 11/01/20 1019 Trans: 11/01/20 1031 [id number] [id number] Interpreted by: JEREMY MCKEON MD Electronically signed by: Departure Impression Primary Impression: Acute lumbar back pain Qualified Codes: M54.5 - Low back pain Disposition: 01 HOME, SELF-CARE Condition: Stable Departure-Patient Inst. Decision time for Depature: 10:59 Referrals: CARISSA BROWNE MD (PCP/Family) Primary Care Physician Patient Instructions: Low Back Pain in Adults Add. Discharge Instructions: Take the hydrocodone tablets, 1/2 tablet every 4-6 hours as needed for pain. You can take a full tablet at night prior to bed. Please be very careful as this medication can make you sleepy and make you more prone to falls. Please take a daily stool softeners while you are needing to take the hydrocodone pain medication. I have also prescribed you some prednisone. This is anti-inflammatory. You will take this daily for the next 5 days. Always take this medication with food. Please call your primary care provider today for a follow-up appointment early this week. He may refer you for an MRI and further evaluation by a neurosurgeon for treatment of the compression fracture at the level of T12 in your back. Come back to the emergency room for any worsening pain especially pain radiating down your legs, pain that causes weakness or numbness, loss of bowel or bladder control or any other emergent concerning symptoms. Scripts Hydrocodone/Acetaminophen (Hydrocodone-Acetamin 5-325 mg) 1 Each Tablet 1 TAB PO Q4H PRN for PAIN-MODERATE (5-7), #20 TAB take 1/2 tablet every 4 hours as needed for pain. You may take 1 tablet at bedtime. Prov: KING JARA MD 11/01/20 Prednisone (Prednisone) 20 Mg Tab 40 MG PO DAILY, #10 TAB 0 Refills Prov: KING JARA MD 11/01/20 Copy Copies To 1: CARISSA BROWNE MD, KATHRYN M MD Nov 01, 2020 09:42
[2020-11-01] MEDS ORDERED: ORPHENADRINE 60 MG/2 ML (NORFLEX) AMP (ED ONLY) IV ONE (09:45)
[2020-11-01] MEDS ORDERED: fentaNYL INJECTION 100 MCG/2 ML AMP IVP ONE (09:45)
--- NOTE | 2020-11-01 10:31 | Diagnostic Imaging Report ---
PROCEDURE: CT lumbar spine without contrast. TECHNIQUE: Multiple contiguous axial images were obtained through the lumbar spine without the use of intravenous contrast. Sagittal and coronal reformations were then performed. Auto Exposure Controls were utilized during the CT exam to meet ALARA standards for radiation dose reduction. INDICATION: Fall with severe low back pain. COMPARISON: Correlation is made with prior CT lumbar spine from 06/09/2019. FINDINGS: Curvature of the lumbar spine is normal. There is minimal retrolisthesis of L2 on L3 and L3 on L4. There is a new compression fracture involving the T12 vertebral body. This appears to be acute. There is some central compression of the superior endplate. There also appears to be some central compression of the inferior endplate. No retropulsion is identified. Lumbar vertebral bodies show normal stature. There is severe lumbar spondylosis with variable disc space narrowing and marginal spurring. Paraspinous tissues are unremarkable. IMPRESSION: 1. Acute compression fracture involving T12 vertebral body without evidence of retropulsion. No other acute compression fractures are seen. 2. Lumbar spondylosis. Dictated by: Dictated on workstation # [id number]
[2020-11-01] MEDS ORDERED: predniSONE 20 MG TAB PO ONE (11:00)
[2020-11-01] MEDS ORDERED: HYDROcodone/APAP 5 MG/325 MG (LORTAB) TAB PO ONE (11:00)
[2020-11-01] MEDS ORDERED: PRD20T PO (11:04)
[2020-11-01] MEDS ORDERED: ACHD5005 PO (11:04)
[2020-11-01 11:57] VITALS: BP 154/70
== END 2020-11-01 11:57 | disposition home or self-care (01) ==
LOC: EDUNIT# 09:10 → ER 09:13
DX: M54.5 Low back pain (principal); J44.9 Chronic obstructive pulmonary disease, unspecified; E78.00 Pure hypercholesterolemia, unspecified; I10 Essential (primary) hypertension; F41.9 Anxiety disorder, unspecified; K21.9 Gastro-esophageal reflux disease without esophagitis; Z88.0 Allergy status to penicillin; Z88.8 Allergy status to other drugs, medicaments and biological substances; Z95.5 Presence of coronary angioplasty implant and graft; Z80.0 Family history of malignant neoplasm of digestive organs; Z80.1 Family history of malignant neoplasm of trachea, bronchus and lung; Z80.42 Family history of malignant neoplasm of prostate; Z79.52 Long term (current) use of systemic steroids
CPT/HCPCS: 72131

== ENCOUNTER 2021-03-11 05:33 | Outpatient (CLI) | payer MEDICARE ==
[~2021-03-11] VITALS: Ht 162.6 cm; Wt 59.1 kg
[~2021-03-11 05:33] MED LIST changes: +ACHD5005 PO; -DOCU-238 PO; +DOCU-26 PO; +PRD20T PO
[2021-03-11] MEDS ORDERED: AMLO-250 PO (08:17)
[2021-03-11] MEDS ORDERED: MIRA25TA PO (08:17)
== END 2021-03-11 08:20 | disposition home or self-care (01) ==
LOC: PREOP 05:33
PROVIDERS: ATTEND Specialist
DX: Z01.818 Encounter for other preprocedural examination (principal)

== ENCOUNTER 2021-03-14 06:55 | Day surgery (SDC) | payer MEDICARE ==
[~2021-03-14] VITALS: Ht 162.6 cm; Wt 59.1 kg
[~2021-03-14 06:55] MED LIST changes: +AMLO-250 PO; +MIRA25TA PO
[2021-03-14] MEDS ORDERED: TROPICAMIDE 1% OPH SOLN (MYDRIACYL) 15 ML BTL OU PRN (07:15)
[2021-03-14] MEDS ORDERED: PHENYLEPHRINE 10% OPHTH (NEO-SYN) 5 ML BTL OU PRN (07:15)
[2021-03-14] MEDS ORDERED: TETRACAINE 0.5% OPHTH SOLN 4 ML BTL (SINGLE DOSE ONLY) OU PRN (07:15)
[2021-03-14 07:17] VITALS: BP 108/69
--- NOTE | 2021-03-14 07:43 | Ophthalmologist Pre-Op Note ---
Pre-Operative Progress Note H&P Reviewed The H&P was reviewed, patient examined and no changes noted. Date H&P Reviewed: Mar 14, 2021 Time H&P Reviewed: 07:43 Pre-Op Dx Secondary Cataract, Right Eye AWA ASTORGA MD Mar 14, 2021 07:43
[2021-03-14 07:49] VITALS: BP 108/69
--- NOTE | 2021-03-14 07:52 | Ophthalmology Operative Report ---
YAG Capsulotomy PREOPERATIVE DIAGNOSIS: Secondary Cataract Left Eye POSTOPERATIVE DIAGNOSIS: Secondary Cataract Left Eye PROCEDURE: YAG Capsulotomy, left eye SURGEON: Obdulio Astorga ANESTHESIA: Topical anesthesia COMPLICATIONS: None ESTIMATED BLOOD LOSS: Minimal DESCRIPTION OF PROCEDURE: After proper informed consent was obtained, the patient's, a 85 female left eye received one drop of Tropicamide and one drop of Tetracaine. The patient was then placed at the YAG laser and using a power of [4.0 ] millijoules and [ 17] bursts were used to fashion a central capsulotomy. The patient tolerated the procedure well without complications. OBDULIO ASTORGA MD Mar 14, 2021 07:52
== END 2021-03-14 07:45 | disposition home or self-care (01) ==
LOC: SDC 06:55
PROVIDERS: ATTEND Specialist
DX: H26.492 Other secondary cataract, left eye (principal); J45.909 Unspecified asthma, uncomplicated; E78.00 Pure hypercholesterolemia, unspecified; R03.0 Elevated blood-pressure reading, without diagnosis of hypertension

== ENCOUNTER 2021-04-25 15:10 | Outpatient (RCR) | payer MEDICARE | END 2021-04-29 | disposition home or self-care (01) | PROVIDERS: ATTEND Internal Medicine | DX: M54.41 Lumbago with sciatica, right side (principal); I10 Essential (primary) hypertension; F32.9 Major depressive disorder, single episode, unspecified; Z95.5 Presence of coronary angioplasty implant and graft; Z97.4 Presence of external hearing-aid ==

== ENCOUNTER 2021-05-15 09:55 | Outpatient (RCR) | payer MEDICARE | END 2021-05-15 10:40 | disposition home or self-care (01) | PROVIDERS: ATTEND Internal Medicine | DX: M54.40 Lumbago with sciatica, unspecified side (principal); R26.89 Other abnormalities of gait and mobility; I10 Essential (primary) hypertension ==

== ENCOUNTER 2022-02-16 11:39 | Emergency (ER) | payer MEDICARE ==
[~2022-02-16] VITALS: Ht 162 cm; Wt 61.0 kg
--- NOTE | 2022-02-16 12:04 | ED Syncope ---
General Chief Complaint: Dizziness/Syncope Stated Complaint: LOW HEART RATE 36 - DIZZY - WEAKNESS - SOA Source of Information: Patient History of Present Illness Date Seen by Provider: Feb 16, 2022 Time Seen by Provider: 11:39 Initial Comments Patient to the ER by private conveyance with her [id number] chief complaint of dizzy and lightheaded on standing from seated or lying position for the past couple days. She said it happened again while her hospice nurse was checking on her who is on hospice for Alzheimer's. The nurse checked her heart rate and found it to be in the 30s paradoxical to her lightheadedness and feelings of near syncope. She has not had complete syncope. She says she is always felt lightheaded if she stands up too quickly but this is significantly worse. She is on metoprolol succinate 50 mg at night and has been taking her medications routinely. 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 She says she has been experiencing the past couple days the feeling of urgency micturate but only producing a small amount of urine. She is not having urinary frequency or feeling of incomplete bladder emptying. No fevers chills nausea vomiting cough shortness of air. She is not having any pain anywhere. Echocardiogram by Dr. Hein from 2019 demonstrating EF of 50 to 55% and grade 1 diastolic dysfunction. Allergies and Home Medications Allergies Coded Allergies: Penicillins (Unverified Allergy, Intermediate, RASH, 03/31/20) clopidogrel (Verified Allergy, Mild, ITCHING, 03/31/20) Patient Home Medication List Home Medication List Reviewed: Yes Albuterol Sulfate (Ventolin Hfa) 1 Puff Puff, 2 PUFF INH DAILY PRN PRN for SHORTNESS OF BREATH, (Reported) Entered as Reported by: POP JEAN on 03/31/20 1010 Amlodipine Besylate (Amlodipine Besylate) 5 Mg Tablet, 5 MG PO DAILY, (Reported) Entered as Reported by: LORENZA GREY on 03/11/21 0817 Buspirone HCl (Buspirone HCl) 5 Mg Tablet, 5 MG PO DAILY, (Reported) Entered as Reported by: POP JEAN on 03/31/20 1009 Fluticasone Propionate (Flonase Allergy Relief) 9.9 Ml Morrison.susp, 1 SPRAY NS DAILY PRN for CONGESTION, (Reported) Entered as Reported by: ALEK HERRERA on 04/01/20 1026 Losartan Potassium (Losartan Potassium) 100 Mg Tablet, 100 MG PO DAILY, (Reported) Entered as Reported by: POP JEAN on 03/31/20 1002 Metoprolol Succinate (Metoprolol Succinate) 50 Mg Tab.er.24h, 50 MG PO HS, (Reported) Entered as Reported by: POP JEAN on 03/31/20 1008 Mirabegron (Myrbetriq) 25 Mg Tab.er.24h, 25 MG PO HS, (Reported) Entered as Reported by: LORENZA GREY on 03/11/21 0817 Pantoprazole Sodium (Pantoprazole Sodium) 40 Mg Tablet.dr, 40 MG PO DAILY, (Reported) Entered as Reported by: POP JEAN on 03/31/20 1002 Ranolazine (Ranexa) 500 Mg Tab.er.12h, 500 MG PO BID, (Reported) Entered as Reported by: POP JEAN on 03/31/20 1004 Rosuvastatin Calcium (Rosuvastatin Calcium) 10 Mg Tablet, 10 MG PO HS, (Reported) Entered as Reported by: ALEK HERRERA on 04/01/20 1026 Sertraline HCl (Sertraline HCl) 100 Mg Tablet, 100 MG PO DAILY, (Reported) Entered as Reported by: TEGAN SHEA on 03/13/19 1023 Review of Systems Constitutional: see HPI; No chills, No diaphoresis; dizziness; No fever, No malaise EENTM: No ear discharge, No ear pain Respiratory: No cough, No dyspnea on exertion, No short of breath Cardiovascular: No chest pain, No edema; Hx of Intervention (stent x1) Gastrointestinal: No abdominal pain, No constipation, No diarrhea, No nausea Genitourinary: see HPI, decreased output; No discharge, No frequency Musculoskeletal: No back pain, No joint pain All Other Systems Reviewed Negative Unless Noted: Yes Past Zigbozf-Xsvbsa-Yqteoo Hx Patient Social History Tobacco Use?: No Use of E-Cig and/or Vaping dev: No Substance use?: No Immunizations Up To Date Tetanus Booster (TDap): Less than 5yrs PED Vaccines UTD: Yes Seasonal Allergies Seasonal Allergies: No Past Medical History Surgeries: Yes (STENT X1, HEMMROIDECTOMY, PARATHYROID, carpal tunnel ) Coronary Stent, Orthopedic Respiratory: Yes (COPD) Asthma, COPD Currently Using CPAP: No Currently Using BIPAP: No Cardiac: Yes (STENT - 2010) Coronary Artery Disease, High Cholesterol, Hypertension Neurological: No Reproductive Disorders: No [employer] History: Menopausal Sexually Transmitted Disease: No HIV/AIDS: No Genitourinary: No Gastrointestinal: Yes Gastroesophageal Reflux, Hemorrhoids, Polyps, Gall Bladder Disease, Irritable Bowel Musculoskeletal: Yes Arthritis Endocrine: No HEENT: Yes Cataract Loss of Vision: Denies Hearing Impairment: Hard of Hearing Cancer: No Psychosocial: Yes Anxiety Integumentary: No Blood Disorders: No Adverse Reaction/Blood Tranf: No Family Medical History Colon cancer 19 MOTHER FH: emphysema 19 FATHER FH: lung cancer G8 BROTHER Prostate cancer G8 BROTHER Physical Exam Vital Signs Vital Signs - First Documented 02/16/22 11:44 Temp 35.5 Pulse 68 Resp 20 B/P (MAP) 140/67 (91) Pulse Ox 99 O2 Delivery Room Air Capillary Refill : Height, Weight, BMI Height: 5'4.00" Weight: 125lbs. 0.0oz. [id number]; 24.00 BMI Method:Stated General Appearance: WD/WN, Mild Distress HEENT: PERRL/EOMI, Pharynx Normal; No Moist Mucous Membranes Neck: Full Range of Motion, Normal Inspection Cardiovascular: Regular Rate, Rhythm, No Edema, Normal Peripheral Pulses (67) Respiratory: Lungs Clear, Normal Breath Sounds, No Accessory Muscle Use, No Respiratory Distress Gastrointestinal: Normal Bowel Sounds, No Organomegaly, Non Tender, Soft Extremities: Normal Capillary Refill, Normal Inspection, No Pedal Edema Neurologic/Psychiatric: Alert, Oriented x3, No Motor/Sensory Deficits, Normal Mood/Affect Cranial Nerves: Normal Hearing, Normal Speech Motor/Sensory: No Motor Deficit, No Sensory Deficit Skin: Normal Color, Warm/Dry Progress/Results/Core Measures Results/Orders Lab Results Laboratory Tests Test 02/16/22 11:51 02/16/22 13:38 Range/Units White Blood Count 7.7 4.3-11.0 10^3/uL Red Blood Count 4.26 3.80-5.11 10^6/uL Hemoglobin 12.8 11.5-16.0 g/dL Hematocrit 38 35-52 % Mean Corpuscular Volume 89 80-99 fL Mean Corpuscular Hemoglobin 30 25-34 pg Mean Corpuscular Hemoglobin Concent 34 32-36 g/dL Red Cell Distribution Width 12.8 10.0-14.5 % Platelet Count 271 130-400 10^3/uL Mean Platelet Volume 8.9 L 9.0-12.2 fL Immature Granulocyte % (Auto) 1 % Neutrophils (%) (Auto) 47 42-75 % Lymphocytes (%) (Auto) 33 12-44 % Monocytes (%) (Auto) 15 H 0-12 % Eosinophils (%) (Auto) 4 0-10 % Basophils (%) (Auto) 1 0-10 % Neutrophils # (Auto) 3.6 1.8-7.8 10^3/uL Lymphocytes # (Auto) 2.5 1.0-4.0 10^3/uL Monocytes # (Auto) 1.1 H 0.0-1.0 10^3/uL Eosinophils # (Auto) 0.3 0.0-0.3 10^3/uL Basophils # (Auto) 0.1 0.0-0.1 10^3/uL Immature Granulocyte # (Auto) 0.1 0.0-0.1 10^3/uL Sodium Level 132 L 135-145 MMOL/L Potassium Level 4.6 3.6-5.0 MMOL/L Chloride Level 99 98-107 MMOL/L Carbon Dioxide Level 21 21-32 MMOL/L Anion Gap 12 5-14 MMOL/L Blood Urea Nitrogen 19 H 7-18 MG/DL Creatinine 0.94 0.60-1.30 MG/DL Estimat Glomerular Filtration Rate 58 BUN/Creatinine Ratio 20 Glucose Level 91 70-105 MG/DL Calcium Level 9.3 8.5-10.1 MG/DL Corrected Calcium 9.1 8.5-10.1 MG/DL Total Bilirubin 0.5 0.1-1.0 MG/DL Aspartate Amino Transf (AST/SGOT) 20 5-34 U/L Alanine Aminotransferase (ALT/SGPT) 19 0-55 U/L Alkaline Phosphatase 52 40-136 U/L Troponin I < 0.028 <0.028 NG/ML C-Reactive Protein High Sensitivity 0.11 0.00-0.50 MG/DL B-Type Natriuretic Peptide 105.9 H <100.0 PG/ML Total Protein 7.0 6.4-8.2 GM/DL Albumin 4.2 3.2-4.5 GM/DL Urine Color YELLOW Urine Clarity CLEAR Urine pH 8.0 5-9 Urine Specific [place] 1.010 L 1.016-1.022 Urine Protein NEGATIVE NEGATIVE Urine Glucose (UA) NEGATIVE NEGATIVE Urine Ketones NEGATIVE NEGATIVE Urine Nitrite NEGATIVE NEGATIVE Urine Bilirubin NEGATIVE NEGATIVE Urine Urobilinogen 1.0 < = 1.0 MG/DL Urine Leukocyte Esterase NEGATIVE NEGATIVE Urine RBC (Auto) NEGATIVE NEGATIVE Urine RBC RARE /HPF Urine WBC NONE /HPF Urine Squamous Epithelial Cells RARE /HPF Urine Crystals NONE /LPF Urine Bacteria TRACE /HPF Urine Casts NONE /LPF Urine Mucus NEGATIVE /LPF Urine Culture Indicated NO My Orders Orders - YAMILA STANTON Continuous Ekg Monitoring (02/16/22 11:41) Ekg Tracing (02/16/22 11:41) Cbc With Automated Diff (02/16/22 12:01) Comprehensive Metabolic Panel (02/16/22 12:01) Hs C Reactive Protein (02/16/22 12:01) Ua Culture If Indicated (02/16/22 12:01) Troponin I [place] (02/16/22 12:01) Bnp Yun (02/16/22 12:01) Chest 1 View, Ap/Pa Only (02/16/22 12:01) Ed Iv/Invasive Line Start (02/16/22 12:01) Ns Iv 500 Ml (Sodium Chloride 0.9%) (02/16/22 12:15) Post Void Residual Assessment (02/16/22 12:04) Catheter(Urinary) Insert & Ass 03,15 (02/16/22 13:16) Medications Given in ED Current Medications Medications Dose Ordered Sig/Kendra Route Start Time Stop Time Status Last Admin Dose Admin Sodium Chloride 500 ml @ 0 mls/hr Q0M ONCE IV 02/16/22 12:15 02/16/22 12:16 DC 02/16/22 12:37 500 MLS/HR Vital Signs/I&O 02/16/22 11:44 Temp 35.5 Pulse 68 Resp 20 B/P (MAP) 140/67 (91) Pulse Ox 99 O2 Delivery Room Air Progress Progress Note #1: Time: 12:07 Progress Note Suspect orthostatic near syncope compounded by possible UTI and use of metoprolol succinate. Her dose has been stable for some time. EKG is unremarkable heart rate is in the 60s. We will keep her on the monitor check some labs and give her a 500 cc bolus of fluids. Postvoid residual. Orthostatic vital signs are normal. Progress Note #2: Time: 13:15 Progress Note Unfortunately the patient missed the hat and we were not able to collect a urine sample. Postvoid residual assessment revealed over 600 cc of urine still in the bladder. Plan to put a Omer catheter for retention and so they can collect a sample. Her sodium is a little on the low side but otherwise her labs are largely unremarkable. Progress Note #3: Time: 14:56 Progress Note Patient's put out copious urine, clear, yellow and urinalysis is unremarkable. Urinary retention could cause bradycardia. Will suggest she follow-up with her disc recordist to consider a monitor study if indicated looking for dysrhythmia. We will also refer her on to urology in the next week to 2 weeks to discuss getting the Omer catheter out and review of anatomical causes of urinary retention. We discussed an observation stay as well as trying to get her up to make sure she was doing okay with the patient states she feels good has been up and ready to go home. Initial ECG Impression Date: Feb 16, 2022 Initial ECG Impression Time: 11:49 Initial ECG Rate: 67 Initial ECG Rhythm: Normal Sinus Initial ECG Intervals: QT (472) Initial ECG Impression: Normal, Nonspecific Changes Initial ECG Comparisson: Unchanged Comment Left bundle branch block, sinus rhythm without clinically relevant ST elevation or depression. Diagnostic Imaging Diagonstic Imaging: Xray Plain Films/CT/US/NM/MRI: chest Comments [email or web address]. [place], [place] NAME: JOEL CABALLERO [facility] REC#: [id number] PT STATUS: REG ER : 1935 PHYSICIAN: YAMILA STANTON MD ADMIT DATE: 02/16/22/ER Draft Date of Exam:02/16/22 CHEST 1 VIEW, AP/PA ONLY INDICATION: Syncope. Frontal chest obtained at 12:19 p.m. and compared to 03/21/2020. FINDINGS: Heart and mediastinal silhouette are normal in appearance. The lungs are clear. There is no pneumothorax or pleural fluid. IMPRESSION: Negative chest. Dictated on workstation # [id number] Dict: 02/16/22 1218 Trans: 02/16/22 1221 [id number] Interpreted by: SRUTHI HU MD Electronically signed by: Reviewed: Reviewed by Me Departure Impression Primary Impression: Urinary retention Additional Impressions: Postural dizziness with near syncope Sinus bradycardia Disposition: HOME, SELF-CARE Condition: Stable Departure-Patient Inst. Decision time for Depature: 14:50 Referrals: HECTOR HEIN MD, ELIAS A MD TAYLOR, JOHN D MD (PCP/Family) Primary Care Physician Patient Instructions: Urinary Retention (DC), Near Fainting (DC) Add. Discharge Instructions: Drink plenty of fluids. Make a follow-up appointment in 1 [address] Little, urology to discuss getting the Omer catheter out and investigate causes of urinary retention. Make a follow-up appointment in 2 to 4 weeks with your disc recordist, Dr. Hein to discuss work-up for dysrhythmias possibly including a monitor study. Promptly return to the ER for fever, intractable vomiting, continued passing out, chest pain, shortness of air or other worrisome symptoms. All discharge instructions reviewed with patient and/or family. Voiced unde rstanding. Copy Copies To 1: HECTOR HEIN MD; PAM LITTLE MD, TITUS J Feb 16, 2022 12:04
[2022-02-16 12:06] LABS: BASOPHILS # (AUTO) 0.1 10^3/uL (0.0-0.1); BASOPHILS % (AUTO) 1 % (0-10); EOSINOPHILS # (AUTO) 0.3 10^3/uL (0.0-0.3); EOSINOPHILS % (AUTO) 4 % (0-10); HEMATOCRIT 38 % (35-52); HEMOGLOBIN 12.8 g/dL (11.5-16.0); LYMPHOCYTES # (AUTO) 2.5 10^3/uL (1.0-4.0); LYMPHOCYTES % (AUTO) 33 % (12-44); MEAN CORPUSCULAR HEMOGLOBIN 30 pg (25-34); MEAN CORPUSCULAR HGB CONC 34 g/dL (32-36); MEAN CORPUSCULAR VOLUME 89 fL (80-99); MEAN PLATELET VOLUME 8.9 fL (9.0-12.2); MONOCYTES # (AUTO) 1.1 10^3/uL (0.0-1.0); MONOCYTES % (AUTO) 15 % (0-12); NEUTROPHILS # (AUTO) 3.6 10^3/uL (1.8-7.8); NEUTROPHILS % (AUTO) 47 % (42-75); PLATELET COUNT 271 10^3/uL (130-400); WHITE BLOOD COUNT 7.7 10^3/uL (4.3-11.0)
[2022-02-16 12:09] LABS: ALBUMIN 4.2 GM/DL (3.2-4.5); CHLORIDE 99 MMOL/L (98-107); POTASSIUM 4.6 MMOL/L (3.6-5.0); SODIUM 132 MMOL/L (135-145)
[2022-02-16 12:10] LABS: CALCIUM 9.3 MG/DL (8.5-10.1)
[2022-02-16 12:11] LABS: GLUCOSE 91 MG/DL (70-105)
[2022-02-16 12:13] LABS: BILIRUBIN,TOTAL 0.5 MG/DL (0.1-1.0); CARBON DIOXIDE 21 MMOL/L (21-32)
[2022-02-16 12:15] LABS: ALKALINE PHOSPHATASE 52 U/L (40-136); CREATININE SERUM 0.94 MG/DL (0.60-1.30); GFR ESTIMATED 58
[2022-02-16] MEDS ORDERED: NS IV 500 ML 500 ML IV ONE (12:15)
[2022-02-16 12:16] LABS: BUN/CREATININE RATIO 20
[2022-02-16 12:18] LABS: ALANINE AMINOTRANSFERASE 19 U/L (0-55)
--- NOTE | 2022-02-16 12:21 | Diagnostic Imaging Report ---
INDICATION: Syncope. Frontal chest obtained at 12:19 p.m. and compared to 03/21/2020. FINDINGS: Heart and mediastinal silhouette are normal in appearance. The lungs are clear. There is no pneumothorax or pleural fluid. IMPRESSION: Negative chest. Dictated by: Dictated on workstation # [id number]
[2022-02-16 13:43] LABS: BILIRUBIN,URINE NEGATIVE (NEGATIVE); CLARITY,URINE CLEAR; COLOR,URINE YELLOW; GLUCOSE, URINE (UA) NEGATIVE (NEGATIVE); KETONES,URINE NEGATIVE (NEGATIVE); LEUKOCYTE ESTERASE ,URINE NEGATIVE (NEGATIVE); NITRITE,URINE NEGATIVE (NEGATIVE); PROTEIN,URINE NEGATIVE (NEGATIVE)
[2022-02-16 13:54] LABS: BACTERIA,URINE TRACE /HPF; SQUAMOUS EPITHELIAL CELL,UR RARE /HPF
[2022-02-16 14:02] LABS: RBC,URINE RARE /HPF
[2022-02-16 15:14] VITALS: BP 135/67
== END 2022-02-16 15:13 | disposition home or self-care (01) ==
LOC: EDUNIT# 11:39 → ER 11:40
DX: R55 Syncope and collapse (principal); R42 Dizziness and giddiness; R33.9 Retention of urine, unspecified; R00.1 Bradycardia, unspecified; I44.7 Left bundle-branch block, unspecified; I10 Essential (primary) hypertension; Z79.899 Other long term (current) drug therapy
CPT/HCPCS: 36415; 51702; 71045; 80053; 81000; 83880; 84484; 85025; 86141; 93005

== ENCOUNTER → 2022-06-18 | Outpatient (CLI) | payer MEDICARE | LOC: CARD 09:27 | PROVIDERS: ATTEND Physician Assistant | DX: I08.3 Combined rheumatic disorders of mitral, aortic and tricuspid valves (principal); I10 Essential (primary) hypertension | CPT/HCPCS: 93306 ==